=== PATIENT | female | born 1945 | race Caucasian/White ===

== ENCOUNTER → 2018-06-09 08:32 | Outpatient (CLI) | payer MEDICARE, SELFPAY ==
[2018-06-08 09:28] VITALS: BMI 25.8
[2018-06-09 12:53] LABS: Absolute Lymphocyte Count 2.87 X10^3/ul (0.83-4.51); Basophil# 0.01 X10^3/uL; Basophil% 0.2 % (0-1); Eosinophil# 0.13 X10^3/uL; Hematocrit 37.5 % (37-47); Hemoglobin 12.1 g/dl (12.0-15.0); Lymphocyte # 2.87 X10^3/ul (4.0); Lymphocyte % 44.9 % (19-41); Mean Corp Hgb Conc 32.3 g/gl (32-36); Mean Corpuscular Hgb 28.8 pg (27.0-32.0); Mean Corpuscular Volume 89.3 fL (81-99); Monocyte# 0.42 X10^3/uL; Monocyte% 6.6 % (0-10); Neutrophil # 2.95 X10^3/uL (2.7-7.7); Neutrophil % 46.1 % (47-70); Platelet Count 293 K/mm3 (150-450); RBC Distribution Width CV 12.9 % (11.6-14.6); RBC Distribution Width SD 41.1 fl (35.1-43.9); White Blood Count 6.4 K/mm3 (4.4-11.0)
[2018-06-09 12:58] LABS: POSITIVE COUNT NO; POSITIVE DIFFERENTIAL NO; POSITIVE MORPHOLOGY NO
[2018-06-09 13:22] LABS: ALB/GLOB Ratio 1.2 RATIO (0.9-2.4); AST(SGOT) 20 U/L (15-37); Alanine Aminotransfer ALT/SGPT 19 U/L (13-56); Alkaline Phosphatase 65 U/L (45-117); Anion Gap 4 (5-15); BUN 22 mg/dL (7-18); BUN/Creat Ratio 22.4 RATIO (10-20); Calcium,Total 8.7 mg/dL (8.5-10.1); Chloride 108 mmol/L (98-107); Cholesterol 154 mg/dL (200); Creatinine, Serum 0.98 mg/dL (0.55-1.02); EST Glomerular Filtration Rate 59 mL/min (>60); Est Glom Filt Rate - Afr Amer 72 mL/min (>60); Globulin 3.2 g/dL (2.2-4.2); Glucose 90 mg/dL (74-106); High Density Lipoprotein 64 mg/dL; Potassium 4.5 mmol/L (3.5-5.1); Protein, Total 7.2 g/dL (6.4-8.2); Sodium Level 140 mmol/L (136-145); T4 Free Direct 1.04 ng/dL (0.76-1.46); Thyroid Stim Hormone (TSH) 4.84 uIU/mL (0.358-3.74); Triglycerides 123 mg/dL; Very Low Density Lipoprotein 25 mg/dL (5-40)
== END ==
PROVIDERS: PCP Internal Medicine; Visit Provider Internal Medicine
DX: E78.5 Hyperlipidemia, unspecified (principal); E03.9 Hypothyroidism, unspecified
CPT/HCPCS: 36415; 80053; 80061; 84439; 84443; 85025

== ENCOUNTER 2018-10-09 15:33 | Emergency (ER) | payer MEDICARE, MEDICAID, SELFPAY ==
[2018-09-01 13:57] VITALS: BMI 25.8
[2018-10-09 15:34] VITALS: BP 158/71; PULSE 84; RESP 16; TEMP 36.8; O2SAT 97; BMI 29.2
[2018-10-09 16:38] VITALS: BP 117/59; PULSE 73; RESP 17; O2SAT 95
--- NOTE | 2018-10-09 17:50 | EKG12_ITS ---
Test Reason : Blood Pressure : / mmHG Vent. Rate : 060 BPM Atrial Rate : 060 BPM P-R Int : 210 ms QRS Dur : 092 ms QT Int : 438 ms P-R-T Axes : 056 020 038 degrees QTc Int : 438 ms Sinus rhythm with 1st degree A-V block RSR' or QR pattern in V1 suggests right ventricular conduction delay Nonspecific T wave abnormality Abnormal ECG Confirmed by GERALDO MARTIN, MICHELINE ([id number]), writer editor MARY MACDONALD ([id number]) on 10/13/2018 10:30:33 AM Referred By: ADRI Confirmed By:MICHELINE CHOW MD
--- NOTE | 2018-10-09 17:51 | ED.DCSUM_ITS ---
- ER Visit Summary Date of Service: 10/09/18 Chief Complaint: Bilateral lower extremity swelling History of Present Illness: The patient is a 73 F past medical his no pulmonary edema nor any effusions. Tory of borderline diabetes, hypertension, high cholesterol and hypothyroidism. Patient denies any known cardiac history nor any history of CHF nor any kidney disease. She states for the last few months she is had intermittent leg swelling is gotten worse over the last several days and she thinks she is put on weight by water retention. Mild intermittent shortness of breath. No chest pain. No nausea, vomiting or diarrhea. No fever. Normal urination. No dysuria. Physical Examination: Older female no acute distress. Vital signs are stable pulse ox 95% on room air no signs of hypoxia. Initial blood pressure 117/59. HEENT exam unremarkable. Neck nontender no JVD. Lungs clear to auscultation bilaterally. Heart regular rhythm no murmur rate about 70. Abdomen is soft and nontender normal bowel sounds no peritoneal signs. Remedies moves all 4. 1+ pitting edema just below the knees bilaterally. Dorsi plantarflexion intact. Calves are nontender without cords. Neurologically she is awake and alert with no focal motor deficits. Test Results: CBC shows normal white count 8. Hemoglobin of 11. Mildly anemic. Chemistries unremarkable normal creatinine. EKG sinus rhythm otherwise unremarkable. No signs of dysrhythmia or ischemia. Chest x-ray normal. Normal cardiac silhouette. No pulmonary edema. No CHF. No pleural effusions. Emergency Department Course and Treatment: Older female with bilateral lower extremity edema. She will be worked up for possible cardiac, renal or other causes for her pedal edema. Repeat exam unchanged at 2044. Patient is doing well. We went over all of her test results. Treatment Plan: Lasix 20 mg once a day for the next 5 days. Follow-up with her primary care physician. She was instructed to keep her any of fruits and veget zacarias while on the Lasix to help maintain her potassium level. Disposition: Discharge Impression: Acute bilateral lower extremity edema of uncertain etiology This note was generated with [employer] software. It may contain incorrect words, spelling, and punctuation that were not noted in review of the chart prior to signing ED Disposition - Plan for ED Patient: Referrals: Skylar Kaufman MD [Primary Care Provider] -
--- NOTE | 2018-10-09 18:20 | RAD_ITS ---
STUDY: X-RAY CHEST REASON FOR EXAM: Female, 73 years old. Increasing swelling. TECHNIQUE: PA and lateral views of the chest. COMPARISON: None. FINDINGS: The lungs are clear and expanded. There is no demonstrated pleural abnormality. Normal size heart. Normal mediastinum and candelaria. Normal visualized pulmonary arteries. Normal visualized aortic arch and descending thoracic aorta. There are diffuse degenerative changes of the visualized thoracic spine. Normal visualized ribs, clavicles, and shoulders. There are surgical clips within the right upper quadrant of the visualized abdomen consistent prior cholecystectomy. RAD/Chest PA and Lateral IMPRESSION: No acute cardiopulmonary process. Electronically Signed: Chetna Parr MD at 18:45 EDT Tel , Service support ,
[2018-10-09 18:34] LABS: Absolute Lymphocyte Count 3.46 X10^3/uL (0.83-4.51); Absolute Neutrophil Count 4.8 X10^3/uL (2.0-7.7); Basophil# 0.03 X10^3/uL; Basophil% 0.3 % (0-1); Eosinophils% 1.1 % (0-5); Hematocrit 34.1 % (37-47); Hemoglobin 11.3 g/dL (12.0-15.0); Lymphocyte # 3.46 X10^3/ul (4.0); Lymphocyte % 38.7 % (19-41); Mean Corp Hgb Conc 33.1 g/dL (32-36); Mean Corpuscular Volume 87.4 fL (81-99); Mean Platelet Vol. 10.2 fl (6.2-12.0); Monocyte# 0.56 X10^3/uL; Monocyte% 6.3 % (0-10); NRBC Flagged by Analyzer 0 % (0-5); Neutrophil # 4.76 X10^3/uL (2.7-7.7); Neutrophil % 53.3 % (47-70); Platelet Count 275 K/mm3 (150-450); RBC Distribution Width CV 13.3 % (11.6-14.6); RBC Distribution Width SD 42.4 fl (35.1-43.9); White Blood Count 8.9 K/mm3 (4.4-11.0)
[2018-10-09 18:47] LABS: Anion Gap 4 (5-15); BUN 16 mg/dL (7-18); BUN/Creat Ratio 16.8 RATIO (10-20); Calcium,Total 9.1 mg/dL (8.5-10.1); Chloride 107 mmol/L (98-107); Creatinine, Serum 0.95 mg/dL (0.55-1.02); EST Glomerular Filtration Rate 61 mL/min (>60); Est Glom Filt Rate - Afr Amer 74 mL/min (>60); Estimated Creatinine Clearance 50.85 ml/min; Glucose 106 mg/dL (74-106); Sodium Level 141 mmol/L (136-145)
[2018-10-09 19:14] VITALS: BP 155/68; PULSE 64; RESP 12; O2SAT 99
--- NOTE | 2018-10-09 20:49 | ED.DEP ---
ED Disposition - Plan for ED Patient: Disposition: Home or Assisted Living Instructions: ED Peripheral Edema, Bilateral Prescriptions: Furosemide [Lasix] 20 mg PO DAILY #5 tab Prescription Printed Referrals: Skylar Kaufman MD [Primary Care Provider] - 5-7 Days Additional Instructions: Call and follow-up with your doctor to be reevaluated. Your kidney function is normal today. We do not have a specific cause for your leg swelling. I will put you on a medication called Lasix and will make you urinate and hopefully get rid of much of the water. Make sure you are eating plenty of fruits and vegetables to maintain potassium level.
[2018-10-09 20:51] VITALS: BP 119/89; PULSE 59; RESP 17; O2SAT 98
== END 2018-10-09 21:02 | disposition home or self-care (01) ==
PROVIDERS: Emergency Provider Emergency Medicine; Family Provider Internal Medicine; PCP Internal Medicine
DX: R60.0 Localized edema (principal); I10 Essential (primary) hypertension; E03.9 Hypothyroidism, unspecified; E78.00 Pure hypercholesterolemia, unspecified; R73.03 Prediabetes; Z79.899 Other long term (current) drug therapy; Z72.0 Tobacco use
CPT/HCPCS: 71046; 80048; 84484; 85025; 93005; 99285; A4216

== ENCOUNTER → 2018-11-12 09:59 | Outpatient (CLI) | payer MEDICARE, MEDICAID, SELFPAY ==
[2018-11-01 13:59] VITALS: BMI 29.2
== END ==
PROVIDERS: Family Provider Internal Medicine; PCP Internal Medicine; Visit Provider Internal Medicine
DX: E03.9 Hypothyroidism, unspecified (principal)
CPT/HCPCS: 36415; 84443

== ENCOUNTER → 2018-11-15 13:13 | Outpatient (CLI) | payer MEDICARE, MEDICAID, SELFPAY ==
[2018-11-01 13:59] VITALS: BMI 29.2
--- NOTE | 2018-11-15 13:14 | ECHOD_ITS ---
Reason For Study: HTN Procedure This was a 2D Doppler, Color Flow transthoracic echocardiogram. Exam performed in department. Left Ventricle Normal LV size. Left ventricular systolic function is normal. The estimated ejection fraction is 55 %. Stage 1 diastolic dysfunction. No regional wall motion abnormalities noted. Right Ventricle Normal RV size. Normal systolic function. Atria Normal left atrium. Normal right atrium. Mitral Valve Normal mitral valve. Mild (1+) eccentric mitral valve insufficiency. Tricuspid Valve Normal tricuspid valve. Mild tricuspid valve insufficiency. Aortic Valve Normal aortic valve. Pulmonic Valve Normal pulmonic valve. Great Vessels Normal aortic root. The pulmonary artery is normal size. Normal inferior vena cava. Pericardium/Pleural No pericardial effusion. MMode/2D Measurements & Calculations LVIDd: 4.2 cm IVSd: 1.1 cm Ao root diam: 3.0 cm LVIDs: 2.8 cm LVPWd: 0.94 cm RVDd: 3.0 cm FS: 34.9 % LAV(MOD-bp): 59.6 ml EDV(MOD-sp4): 76.7 ml EDV(MOD-sp2): 69.8 ml LAV(MOD-bp) Indexed: 31.2 ml/m2 ESV(MOD-sp4): 32.5 ml EF(MOD-sp2): 50.1 % LAV(MOD-sp2): 64.7 ml EF(MOD-sp4): 57.6 % LAV(MOD-sp4): 53.1 ml SV(MOD-sp4): 44.1 ml SV(MOD-sp2): 35.0 ml LA A4 area: 19.4 cm2 LA dimension(2D): 3.6 cm RA A4 area: 16.0 cm2 Doppler Measurements & Calculations MV E max gunner: 96.6 cm/sec Lat Peak E' Gunner: 6.9 cm/sec Med Peak E' Gunner: 6.2 cm/sec MV A max gunner: 103.1 cm/sec E/E' lat: 14.0 E/E' med: 15.6 MV E/A: 0.94 Ao V2 max: 127.7 cm/sec LV V1 max: 99.0 cm/sec PA V2 max: 84.4 cm/sec Ao max P.5 mmHg LV V1 max P.9 mmHg Interpretation Summary Normal LV size. Left ventricular systolic function is normal. The estimated ejection fraction is 55 %. Stage 1 diastolic dysfunction. Mild (1+) eccentric mitral valve insufficiency. Ordering Physician: Skylar Kaufman Referring Physician: Skylar Kaufman Performed By: Shari Christopher RDCS
== END ==
PROVIDERS: Family Provider Internal Medicine; PCP Internal Medicine; Referring Provider Internal Medicine; Visit Provider Internal Medicine
DX: I10 Essential (primary) hypertension (principal); R60.0 Localized edema
CPT/HCPCS: 93306

== ENCOUNTER → 2019-01-10 08:30 | Outpatient (CLI) | payer MEDICARE, MEDICAID, SELFPAY ==
[2018-12-03 14:38] VITALS: BMI 29.2
[2019-01-10 12:30] LABS: Thyroid Stim Hormone (TSH) 2.51 uIU/mL (0.358-3.74)
== END ==
PROVIDERS: Family Provider Internal Medicine; PCP Internal Medicine; Visit Provider Internal Medicine
DX: E03.9 Hypothyroidism, unspecified (principal)
CPT/HCPCS: 36415; 84443

== ENCOUNTER → 2019-04-05 11:57 | Outpatient (CLI) | payer MEDICARE, MEDICAID, SELFPAY ==
[2019-03-25 13:58] VITALS: BMI 29.2
--- NOTE | 2019-04-05 11:58 | BI_ITS ---
MAMMOGRAPHY - BILATERAL SCREENING REASON FOR EXAM: Female, 74 years old. Routine annual screening examination. PERTINENT HISTORY: Non-contributory. TECHNIQUE: Digital bilateral breast annalee (3D mammographic acquisition) in the CC and MLO projections. 2-D mediolateral oblique (MLO) and craniocaudad (CC) views of both breasts were obtained. CAD: Full Field Digital Mammography with Computer Added Detection was performed. COMPARISON: Comparison is made with prior outside examination dated December 13, 2012. FINDINGS: Breast Composition: The breasts are heterogeneously dense, which may obscure small masses. There are no dominant masses or suspicious calcifications. Stable benign-appearing bilateral axillary lymph nodes. No other significant abnormalities are identified. There has been no significant change since the prior study. BI/SCREEN MAMM (CAD) W/ANNALEE BILAT IMPRESSION: Stable bilateral screening mammogram. Yearly follow-up mammogram recommended. (A) ASSESSMENT CATEGORY: BIRADS Category 2: Benign. A letter regarding these results will be sent to the patient by the facility within 30 days. Approximately 10% of breast cancers are not detected by mammography. A normal mammogram should not delay biopsy of a clinically suspicious abnormality. [id number] Electronically Signed: Eligio Bell, at 13:30 EST , Service support ,
--- NOTE | 2019-04-05 12:26 | BD_ITS ---
STUDY: DUAL ENERGY X-RAY ABSORPTIOMETRY / DXA REASON FOR EXAM: Female, 74 years old. 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 COMPARISON: None. FINDINGS: Lumbar Spine (L1-L4): g/cm2 (1.417) / T-score (2.1) / Z-score (3.8) Findings are suggestive of normal bone density with a low fracture risk. Left Femur Total: g/cm2 (0.988) / T-score (-0.2) / Z-score (1.4) Left Femoral Neck: g/cm2 (0.875) / T-score (-1.2) / Z-score (0.6) Right Femur Total: g/cm2 (0.956) / T-score (0.4) / Z-score (1.2) Right Femoral Neck: g/cm2 (0.835) / T-score (-1.5) / Z-score (0.3) BD/Dexa Bone Density Study IMPRESSION: The patient is considered osteopenic as outlined below according to World Zay Organization (WHO) criteria with a low fracture risk. Reference Information: The T-score is the number of standard deviations above or below the standard which is normal for young adults at their peak bone mineral density. The World Health Organization (WHO) interprets the T-scores as follows: Above -1 Normal bone density Between -1 and -2.5 Osteopenia Equal to / or below -2.5 Osteoporosis As a practical clinical guideline, osteopenia may be graded as follows: Mild -1 through -1.5 Moderate -1.6 through -2.0 Severe -2.1 through -2.4 The Z-score is the number of standard deviations above or below age-matched controls. A Z-score of less than -1.5 would be considered abnormal. References: 1. NIH Osteoporosis and Related Bone Diseases http://www.osteo.org 2. International Society for Clinical Densitometry http://www.iscd.org 3. National Osteoporosis Foundation http://www.nof.org Electronically Signed: Eligio Bell, at 14:55 EST , Service support ,
== END ==
PROVIDERS: PCP Internal Medicine; Referring Provider Internal Medicine; Visit Provider Internal Medicine
DX: Z12.31 Encounter for screening mammogram for malignant neoplasm of breast (principal); Z78.0 Asymptomatic menopausal state
CPT/HCPCS: 77063; 77067; 77080

== ENCOUNTER → 2019-08-17 08:50 | Outpatient (CLI) | payer MEDICARE, MEDICAID, SELFPAY ==
[2019-08-02 10:42] VITALS: BMI 29.2
[2019-08-17 12:30] LABS: Absolute Lymphocyte Count 3.73 X10^3/uL (0.83-4.51); Absolute Neutrophil Count 4.2 X10^3/uL (2.0-7.7); Basophil# 0.05 X10^3/uL; Basophil% 0.6 % (0-1); Eosinophil# 0.08 X10^3/uL; Eosinophils% 0.9 % (0-5); Hematocrit 36.8 % (37-47); Hemoglobin 11.7 g/dL (12.0-15.0); Lymphocyte # 3.73 X10^3/ul (4.0); Lymphocyte % 43.5 % (19-41); Mean Corp Hgb Conc 31.8 g/dL (32-36); Mean Corpuscular Volume 91.1 fL (81-99); Mean Platelet Vol. 9.9 fl (6.2-12.0); Monocyte# 0.46 X10^3/uL; Monocyte% 5.4 % (0-10); NRBC Flagged by Analyzer 0 % (0-5); Neutrophil # 4.22 X10^3/uL (2.7-7.7); Neutrophil % 49.2 % (47-70); Platelet Count 298 K/mm3 (150-450); RBC Distribution Width CV 13.4 % (11.6-14.6); RBC Distribution Width SD 44.6 fl (35.1-43.9); Red Blood Count 4.04 M/mm3 (4.2-5.4); White Blood Count 8.6 K/mm3 (4.4-11.0)
[2019-08-17 13:05] LABS: ALB/GLOB Ratio 1.1 RATIO (0.9-2.4); Albumin, Serum 3.9 g/dL (3.2-5.0); BUN 18 mg/dL (7-18); BUN/Creat Ratio 17.3 RATIO (10-20); Calcium,Total 9.3 mg/dL (8.5-10.1); Creatinine, Serum 1.04 mg/dL (0.55-1.02); EST Glomerular Filtration Rate 55 mL/min (>60); Est Glom Filt Rate - Afr Amer 67 mL/min (>60); Globulin 3.7 g/dL (2.2-4.2); Glucose 106 mg/dL (74-106); Protein, Total 7.6 g/dL (6.4-8.2)
[2019-08-17 13:06] LABS: AST(SGOT) 19 U/L (15-37); Alanine Aminotransfer ALT/SGPT 16 U/L (13-56); Alkaline Phosphatase 75 U/L (45-117); Anion Gap 8 (5-15); Chloride 106 mmol/L (98-107); Cholesterol 162 mg/dL (200); High Density Lipoprotein 60 mg/dL; Potassium 4.2 mmol/L (3.5-5.1); Sodium Level 138 mmol/L (136-145); Thyroid Stim Hormone (TSH) 8.61 uIU/mL (0.358-3.74); Triglycerides 170 mg/dL; Very Low Density Lipoprotein 34 mg/dL (5-40)
== END ==
PROVIDERS: PCP Internal Medicine; Referring Provider Internal Medicine; Visit Provider Internal Medicine
DX: E78.5 Hyperlipidemia, unspecified (principal); E03.9 Hypothyroidism, unspecified
CPT/HCPCS: 36415; 80053; 80061; 84443; 85025

== ENCOUNTER → 2019-09-21 08:15 | Outpatient (CLI) | payer MEDICARE, MEDICAID, SELFPAY ==
[2019-08-22 10:05] VITALS: BMI 29.2
[2019-09-21 13:52] LABS: Anion Gap 9 (5-15); BUN 17 mg/dL (7-18); BUN/Creat Ratio 16.3 RATIO (10-20); Calcium,Total 9.2 mg/dL (8.5-10.1); Chloride 104 mmol/L (98-107); Creatinine, Serum 1.04 mg/dL (0.55-1.02); EST Glomerular Filtration Rate 55 mL/min (>60); Est Glom Filt Rate - Afr Amer 67 mL/min (>60); Glucose 100 mg/dL (74-106); Potassium 4.1 mmol/L (3.5-5.1); Sodium Level 138 mmol/L (136-145); Thyroid Stim Hormone (TSH) 5.29 uIU/mL (0.358-3.74)
== END ==
PROVIDERS: PCP Internal Medicine; Referring Provider Internal Medicine; Visit Provider Internal Medicine
DX: I10 Essential (primary) hypertension (principal)
CPT/HCPCS: 36415; 80048; 84443

== ENCOUNTER → 2019-12-29 08:06 | Outpatient (CLI) | payer MEDICARE, MEDICAID, SELFPAY ==
[2019-12-06 09:37] VITALS: BMI 29.2
[2019-12-29 12:44] LABS: Thyroid Stim Hormone (TSH) 2.07 uIU/mL (0.358-3.74)
== END ==
PROVIDERS: PCP Internal Medicine; Referring Provider Internal Medicine; Visit Provider Internal Medicine
DX: E03.9 Hypothyroidism, unspecified (principal)
CPT/HCPCS: 36415; 84443

== ENCOUNTER → 2020-04-03 11:42 | Outpatient (CLI) | payer MEDICARE, MEDICAID, SELFPAY ==
[2020-01-03 11:15] VITALS: BMI 30.7
[2020-04-03 15:44] LABS: Absolute Lymphocyte Count 4.01 X10^3/uL (0.83-4.51); Absolute Neutrophil Count 5.5 X10^3/uL (2.0-7.7); Basophil# 0.07 X10^3/uL; Basophil% 0.7 % (0-1); Eosinophil# 0.08 X10^3/uL; Eosinophils% 0.8 % (0-5); Hematocrit 42.4 % (37-47); Hemoglobin 13.3 g/dL (12.0-15.0); Lymphocyte # 4.01 X10^3/ul (4.0); Lymphocyte % 38.7 % (19-41); Mean Corp Hgb Conc 31.4 g/dL (32-36); Mean Corpuscular Hgb 27.1 pg (27.0-32.0); Mean Corpuscular Volume 86.5 fL (81-99); Mean Platelet Vol. 9.8 fl (6.2-12.0); Monocyte# 0.61 X10^3/uL; Monocyte% 5.9 % (0-10); NRBC Flagged by Analyzer 0 % (0-5); Neutrophil # 5.52 X10^3/uL (2.7-7.7); Neutrophil % 53.1 % (47-70); Platelet Count 358 K/mm3 (150-450); RBC Distribution Width CV 13.5 % (11.6-14.6); RBC Distribution Width SD 42.5 fl (35.1-43.9); White Blood Count 10.4 K/mm3 (4.4-11.0)
[2020-04-03 16:05] LABS: Anion Gap 9 (5-15); BUN 18 mg/dL (7-18); BUN/Creat Ratio 16.8 RATIO (10-20); Calcium,Total 9.4 mg/dL (8.5-10.1); Chloride 103 mmol/L (98-107); Creatinine, Serum 1.07 mg/dL (0.55-1.02); EST Glomerular Filtration Rate 53 mL/min (>60); Est Glom Filt Rate - Afr Amer 65 mL/min (>60); Glucose 97 mg/dL (74-106); Potassium 4.3 mmol/L (3.5-5.1); Sodium Level 138 mmol/L (136-145)
== END ==
PROVIDERS: PCP Internal Medicine; Referring Provider Internal Medicine; Visit Provider Internal Medicine
DX: I10 Essential (primary) hypertension (principal); E78.5 Hyperlipidemia, unspecified
CPT/HCPCS: 36415; 80048; 85025

== ENCOUNTER → 2020-05-07 12:26 | Outpatient (CLI) | payer MEDICARE, MEDICAID, SELFPAY ==
[2020-01-03 11:15] VITALS: BMI 30.7
--- NOTE | 2020-05-07 12:27 | BI_ITS ---
MAMMOGRAPHY - BILATERAL SCREENING REASON FOR EXAM: Female, 75 years old. Routine annual screening examination. PERTINENT HISTORY: Non-contributory. TECHNIQUE: Digital bilateral breast annalee (3D mammographic acquisition) in the CC and MLO projections. 2-D mediolateral oblique (MLO) and craniocaudad (CC) views of both breasts were obtained. CAD: Full Field Digital Mammography with Computer Added Detection was performed. COMPARISON: Comparison is made with prior study dated 04/05/2019. FINDINGS: Breast Composition: The breasts are heterogeneously dense, which may obscure small masses. There are no dominant masses or suspicious calcifications. Stable small benign-appearing bilateral axillary lymph nodes. No other significant abnormalities are identified. There has been no significant change since the prior study. BI/SCRN MAMM (CAD)W/ANNALEE BILAT IMPRESSION: Stable bilateral screening mammogram. Yearly follow-up mammogram recommended. (A) ASSESSMENT CATEGORY: BIRADS Category 2: Benign. A letter regarding these results will be sent to the patient by the facility within 30 days. Approximately 10% of breast cancers are not detected by mammography. A normal mammogram should not delay biopsy of a clinically suspicious abnormality. [id number] Electronically Signed: Eligio Bell MD at 13:26 EST , Service support ,
== END ==
PROVIDERS: PCP Internal Medicine; Referring Provider Internal Medicine; Visit Provider Internal Medicine
DX: Z12.31 Encounter for screening mammogram for malignant neoplasm of breast (principal)
CPT/HCPCS: 77063; 77067

== ENCOUNTER 2020-05-18 14:58 | Outpatient (RCR) | payer MEDICARE, MEDICAID, SELFPAY ==
[2020-01-03 11:15] VITALS: BMI 30.7
[2020-05-18] MEDS: COVID-19 VACC, MRNA(PFIZER)/PF 30 MCG/0.3 ML SYRINGE IM (13:34)
[2020-06-08] MEDS: COVID-19 VACC, MRNA(PFIZER)/PF 30 MCG/0.3 ML SYRINGE IM (13:27)
== END 2020-08-14 23:59 ==
LOC: IMMUN 14:58
PROVIDERS: PCP Internal Medicine; Visit Provider Family Medicine
DX: Z23 Encounter for immunization (principal)
CPT/HCPCS: 0001A; 0002A; 91300

== ENCOUNTER → 2020-07-31 14:49 | Outpatient (CLI) | payer MEDICARE, MEDICAID, SELFPAY ==
[2020-07-31 14:15] VITALS: BMI 29.2
[2020-07-31 17:11] LABS: ALB/GLOB Ratio 1.1 RATIO (0.9-2.4); AST(SGOT) 24 U/L (15-37); Alanine Aminotransfer ALT/SGPT 19 U/L (13-56); Albumin, Serum 3.5 g/dL (3.2-5.0); Alkaline Phosphatase 75 U/L (45-117); Anion Gap 5 (5-15); BUN 22 mg/dL (7-18); BUN/Creat Ratio 19.6 RATIO (10-20); Calcium,Total 8.7 mg/dL (8.5-10.1); Chloride 105 mmol/L (98-107); Creatinine, Serum 1.12 mg/dL (0.55-1.02); EST Glomerular Filtration Rate 51 mL/min (>60); Est Glom Filt Rate - Afr Amer 61 mL/min (>60); Globulin 3.3 g/dL (2.2-4.2); Glucose 96 mg/dL (74-106); Protein, Total 6.8 g/dL (6.4-8.2); Sodium Level 139 mmol/L (136-145)
== END ==
PROVIDERS: PCP Internal Medicine; Referring Provider Physician Assistant; Visit Provider Physician Assistant
DX: R60.0 Localized edema (principal); I10 Essential (primary) hypertension
CPT/HCPCS: 36415; 80053

== ENCOUNTER 2020-12-26 08:15 | Day surgery (SDC) | payer MEDICARE, MEDICAID, SELFPAY ==
[2020-12-26 08:30] VITALS: BP 163/74; PULSE 92; RESP 18; TEMP 37; O2SAT 100; BMI 30.2
[2020-12-26] MEDS: Lactated Ringers 1,000 ML 100 ML IV (08:35)
--- NOTE | 2020-12-26 09:30 | EGD_PTH ---
PATIENT: JERONIMO GOINS LOC: EN U#:[id number] AGE/SX: 75/F ROOM: RE12/26/[address]: Dr. Alexey Quintana DO : 1945 BED: DIS: 12/26/2020 SPEC #: [id number] RECD: 12/26/20 12:34 STATUS: TARIK LIZ #: [id number] JOYCE: 12/26/20 09:[address]: Alexey Quintana DEPT: SURGICAL PATHOLOGY RECD BY: Bernadette Courtney ENTERED: 12/26/20 13:10 SP TYPE: EGD BIOPSY OT DR: Dr. Skylar Kaufman MD Tissues: A - Esophagus, NOS B - Duodenum, NOS C - Gastric mucous membrane D - Ascending colon E - COLON BIOPSY F - Sigmoid colon biopsy Procedures: Special Stain Group II Surgery Specimen Level IV Alcian Blue/PAS (control) HEADER OPERATION: Colonoscopy, EGD ([facility] [place]) PRE-OP DIAGNOSIS: GERD, cancer screening TISSUE SUBMITTED: A ? Distal esophagus, B ? Duodenum polyp biopsy, C ? Antrum biopsy for H.?pylori and biopsy, D ? Ascending colon polyp biopsy, E ? Splenic flexure polyp biopsy, F ? Sigmoid polyp biopsy MICROSCOPIC DIAGNOSIS A. 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 Focal mild chronic inflammation Negative for dysplasia. See comment. B. Duodenal polyp, biopsy: A fragment of duodenal mucosa with focal cystic changes, consistent with benign mucosal polyp. C. Antrum biopsy: Mild gastritis. See microscopic description and comment. D. Ascending colon polyp, biopsy: Fragments of tubular adenoma. E. Splenic flexure polyp, biopsy: Fragments of tubular adenoma. F. Sigmoid polyp, biopsy: Fragments of hyperplastic polyp. SJ:raj 12/27/2020 COMMENT A. Alcian blue/PAS stain with matched control is used in the evaluation of the specimen. Immunohistochemistry for p53 and ki67 will be performed will be performed and results will be reported separately ([id number]). C. The results of immunohistochemistry for Helicobacter pylori will be reported separately ([id number]). Case has been reviewed in consultation with Dr. Liao who concurs with the above diagnosis. IDC:AM MICROSCOPIC DESCRIPTION Slides are reviewed. C. The specimen shows fragments of gastric mucosa with chronic inflammatory cell infiltrates in the lamina propria consisting of lymphocytes and plasma cells, consistent with mild chronic gastritis. GROSS DESCRIPTION A - Received in fixative is one container labeled with the patient's name and designated distal esophagus biopsy. The specimen consists of two irregular fragments of light tinajero soft tissue that in aggregate measure 0.6 x 0.6 x 0.1 cm. The specimen is totally submitted in one cassette. B - Received in fixative is one container labeled with the patient's name and designated duodenal polyp biopsy. The specimen consists of one irregular fragment of light tinajero soft tissue that measures 0.5 x 0.2 x 0.1 cm. The specimen is totally submitted in one cassette. C - Received in fixative is one container labeled with the patient's name and designated antrum biopsy. The specimen consists of two irregular fragments of light tinajero soft tissue that in aggregate measure 0.5 x 0.5 x 0.1 cm. The specimen is totally submitted in one cassette. D - Received in fixative is one container labeled with the patient's name and designated ascending colon polyp biopsy. The specimen consists of multiple irregular fragments of light tinajero soft tissue that in aggregate measure 1 x 0.5 x 0.1 cm. The specimen is totally submitted in one cassette. E - Received in fixative is one container labeled with the patient's name and designated splenic flexure polyp biopsy. The specimen consists of multiple irregular fragments of light tinajero soft tissue that in aggregate measure 1.5 x 0.6 x 0.1 cm. The specimen is totally submitted in one cassette. F - Received in fixative is one container labeled with the patient's name and designated sigmoid polyp biopsy. The specimen consists of two irregular fragments of light tinajero soft tissue that in aggregate measure 0.6 x 0.6 x 0.1 cm. The specimen is totally submitted in one cassette. / AM:raj 12/26/20 TC:1 CPT: 47418 x6, 95265
--- NOTE | 2020-12-26 09:30 | IMM_PTH ---
PATIENT: JERONIMO GOINS LOC: EN U#:[id number] AGE/SX: 75/F ROOM: RE12/26/[address]: Dr. Alexey Quintana DO : 1945 BED: DIS: 12/26/2020 SPEC #: [id number] RECD: 12/26/20 13:34 STATUS: TARIK REQ #: [id number] JOYCE: 12/26/20 09:[address]: Alexey Quintana DEPT: IMMUNOHISTOCHEMISTRY RECD BY: Betzy Dubon ENTERED: 12/26/20 13:35 SP TYPE: IMMUNO OTHR DR: Dr. Skylar Kaufman MD Tissues: C - Stomach, NOS Procedures: H Pylori (initial) P53 (initial) KI-67 (add) PHYSICIAN & INSTITUTION [place] [id number] SPECIMEN INFORMATION: Tissue Source: A ? Distal esophagus, C ? Antrum biopsy Clinical Info: GERD, cancer screening Specimen Number: [id number] A & C CPT code: 30637 x2, 76910 METHODOLOGY: Deparaffinized sections of prefer/formalin-fixed tissue or PAP/DQ stained slides are incubated with monoclonal/polyclonal antibodies/oligonucleotide probes. Localization is made via biotin free immunoperoxidase method. Appropriate controls are performed and reacted as expected. Results on target cell population are indicated in the following table: RESULTS: ANTIBODY / CLONE RESULT Block A P53 (DO-7) negative Ki-67 (30-9) negative Block C H Pylori (polyclonal) negative These tests were developed and their performance characteristics determined by [facility]. They may not have been cleared or approved by the U.S. Food and Drug Administration. The FDA has determined that such clearance or approval is not necessary. The above immunohistochemical/dualISH markers are ordered and reviewed by the pathologist. INTERPRETATION: A. Distal esophagus, biopsy: Negative for dysplasia. C. Antrum biopsy: Negative for Helicobacter pylori organisms. SJ:raj 12/28/2020
[2020-12-26 10:45] VITALS: BP 117/67; BP 163/74; PULSE 73; RESP 16; TEMP 36.1; O2SAT 100
--- NOTE | 2020-12-26 10:47 | OP.EGD_ITS ---
Patient Name: Suellen Gomez Procedure Date: 12/26/2020 9:57 AM Date of : 1945 Age: 75 Procedure: Upper GI endoscopy Indications: Epigastric abdominal pain Providers: Alexey Quintana DO Referring MD: Alexey Quintana DO Medicines: Propofol per Anesthesia Patient Profile: This is a 75 year old female. Refer to note in patient chart for documentation of history and physical. Patient has symptoms of chronic abdominal cramping and chronic abdominal distention. Complications: No immediate complications. Estimated blood loss: None. Procedure: Pre-Anesthesia Assessment: - Prior to the procedure, a History and Physical was performed, and patient medications and allergies were reviewed. The risks and benefits of the procedure and the sedation options and risks were discussed with the patient. All questions were answered and informed consent was obtained. Patient identification and proposed procedure were verified by the physician in the pre-procedure area. Mental Status Examination: alert and oriented. Airway Examination: normal oropharyngeal airway and neck mobility. Respiratory Examination: clear to auscultation. CV Examination: normal. Prophylactic Antibiotics: The patient does not require prophylactic antibiotics. Prior Anticoagulants: The patient has taken no previous anticoagulant or antiplatelet agents. ASA Grade Assessment: II - A patient with mild systemic disease. After reviewing the risks and benefits, the patient was deemed in satisfactory condition to undergo the procedure. The anesthesia plan was to use moderate sedation / analgesia (conscious sedation). Immediately prior to administration of medications, the patient was re-assessed for adequacy to receive sedatives. The heart rate, respiratory rate, oxygen saturations, blood pressure, adequacy of pulmonary ventilation, and response to care were monitored throughout the procedure. The physical status of the patient was re-assessed after the procedure. After obtaining informed consent, the endoscope was passed under direct vision. Throughout the procedure, the patient's blood pressure, pulse, and oxygen saturations were monitored continuously. The gastroscope was introduced through the mouth, and advanced to the second part of duodenum. The upper GI endoscopy was accomplished without difficulty. The patient tolerated the procedure well. Moderate Sedation: Moderate (conscious) sedation was administered by the endoscopy nurse and supervised by the endoscopist. The patient's oxygen saturation, heart rate, blood pressure and response to care were monitored. Total physician intraservice time was 15 minutes. Scope In: 10:11:48 AM Scope Out: 10:15:51 AM Total Procedure Duration Time 0 hours 4 minutes 3 seconds Findings: LA Grade A (one or more mucosal breaks less than 5 mm, not extending between tops of 2 mucosal folds) esophagitis with no bleeding was found 34 to 35 cm from the incisors. Biopsies were taken with a cold forceps for histology. Verification of patient identification for the specimen was done. Estimated blood loss was minimal. Patchy mildly erythematous mucosa without bleeding was found in the gastric antrum. A single 5 mm sessile polyp was found in the first portion of the duodenum. The polyp was removed with a jumbo cold forceps. Resection and retrieval were complete. Verification of patient identification for the specimen was done. Estimated blood loss was minimal. Impression: - LA Grade A reflux esophagitis. Biopsied. - Erythematous mucosa in the antrum. - High likelihood of duodenitis. Biopsied. Recommendation: - Discharge patient to home. - Resume previous diet. - Continue present medications. - Await pathology results. - Repeat upper endoscopy in 1 year for surveillance. - Return to GI office in 2 weeks. Procedure Code(s): --- Professional --- 01087, Esophagogastroduodenoscopy, flexible, transoral; with biopsy, single or multiple G0500, Moderate sedation services provided by the same physician or other qualified health associate director career services performing a gastrointestinal endoscopic service that sedation supports, requiring the presence of an independent trained observer to assist in the monitoring of the patient's level of consciousness and physiological status; initial 15 minutes of intra-service time; patient age 5 years or older (additional time may be reported with 70519, as appropriate) CPT copyright 2017 [employer]. All rights reserved. The codes documented in this report are preliminary and upon financial systems director review may be revised to meet current compliance requirements. Alexey Quintana DO 12/26/2020 10:47:17 AM This report has been signed electronically. Number of Addenda: 1 Note Initiated On: 12/26/2020 9:57 AM Addendum Number: 1 Addendum Date: 11/07/2021 4:38:06 PM MAC was used instead of moderate sedation for this patient. Alexey Quintana DO 11/07/2021 4:38:13 PM This report has been signed electronically.
--- NOTE | 2020-12-26 10:48 | OP.CCLET_ITS ---
11/07/2021 Skylar Kaufman MD [address] [place] [address] [place] [address] Re : Upper GI endoscopy procedure for Suellen Gomez Dear Dr. Kaufman This procedure was performed on Saturday, December 26, 2020. My impressions and recommendations are as follows: Impressions : - LA Grade A reflux esophagitis. Biopsied. - Erythematous mucosa in the antrum. - High likelihood of duodenitis. Biopsied. Recommendations : - Discharge patient to home. - Resume previous diet. - Continue present medications. - Await pathology results. - Repeat upper endoscopy in 1 year for surveillance. - Return to GI office in 2 weeks. My findings are described in the full procedure note, which is enclosed. If I can be of further assistance, please feel free to contact me at . Sincerely, Alexey Quintana, 12/26/2020 10:47:17 AM This report has been signed electronically.
[2020-12-26 10:50] VITALS: BP 122/55; BP 163/74; PULSE 68; RESP 16; O2SAT 98
--- NOTE | 2020-12-26 10:51 | OP.COLON_ITS ---
Patient Name: Suellen Gomez Procedure Date: 12/26/2020 10:17 AM Date of : 1945 Age: 75 Procedure: Colonoscopy Indications: Screening for colorectal malignant neoplasm Providers: Alexey Quintana DO Referring MD: Alexey Quintana DO Medicines: Propofol per Anesthesia Patient Profile: This is a 75 year old female. Refer to note in patient chart for documentation of history and physical. Patient has symptoms of chronic abdominal cramping and chronic abdominal distention. Last Colonoscopy: 10 years ago. Complications: No immediate complications. Procedure: Pre-Anesthesia Assessment: - Prior to the procedure, a History and Physical was performed, and patient medications and allergies were reviewed. The risks and benefits of the procedure and the sedation options and risks were discussed with the patient. All questions were answered and informed consent was obtained. Patient identification and proposed procedure were verified by the physician in the pre-procedure area. Mental Status Examination: alert and oriented. Airway Examination: normal oropharyngeal airway and neck mobility. Respiratory Examination: clear to auscultation. CV Examination: normal. Prophylactic Antibiotics: The patient does not require prophylactic antibiotics. Prior Anticoagulants: The patient has taken no previous anticoagulant or antiplatelet agents. ASA Grade Assessment: II - A patient with mild systemic disease. After reviewing the risks and benefits, the patient was deemed in satisfactory condition to undergo the procedure. The anesthesia plan was to use moderate sedation / analgesia (conscious sedation). Immediately prior to administration of medications, the patient was re-assessed for adequacy to receive sedatives. The heart rate, respiratory rate, oxygen saturations, blood pressure, adequacy of pulmonary ventilation, and response to care were monitored throughout the procedure. The physical status of the patient was re-assessed after the procedure. After I obtained informed consent, the scope was passed under direct vision. Throughout the procedure, the patient's blood pressure, pulse, and oxygen saturations were monitored continuously. The colonoscope was introduced through the anus and advanced to the cecum, identified by appendiceal orifice and ileocecal valve. The colonoscopy was performed without difficulty. The patient tolerated the procedure well. The quality of the bowel preparation was good. Moderate Sedation: Moderate (conscious) sedation was personally administered by an anesthesia professional. The following parameters were monitored: oxygen saturation, heart rate, blood pressure, and response to care. Total physician intraservice time was 15 minutes. Scope In: 10:19:02 AM Scope Withdrawal Time 0 hours 14 minutes 33 seconds Scope Out: 10:41:05 AM Total Procedure Duration Time 0 hours 22 minutes 3 seconds Findings: The perianal and digital rectal examinations were normal. Four sessile polyps were found in the sigmoid colon, splenic flexure and ascending colon. The polyps were 1 to 2 mm in size. These polyps were removed with a jumbo cold forceps. Resection and retrieval were complete. Verification of patient identification for the specimen was done. Estimated blood loss was minimal. Multiple small and large-mouthed diverticula were found in the sigmoid colon and descending colon. Impression: - Four 1 to 2 mm polyps in the sigmoid colon, at the splenic flexure and in the ascending colon, removed with a jumbo cold forceps. Resected and retrieved. Recommendation: - Repeat colonoscopy in 3 years for surveillance of multiple polyps. - Return to GI office in 2 weeks. - Continue present medications. Procedure Code(s): --- Professional --- 83959, Colonoscopy, flexible; with biopsy, single or multiple CPT copyright 2017 [employer]. All rights reserved. The codes documented in this report are preliminary and upon carpet installer helper review may be revised to meet current compliance requirements. Alexey Quintana DO 12/26/2020 10:51:11 AM This report has been signed electronically. Number of Addenda: 1 Note Initiated On: 12/26/2020 10:17 AM Addendum Number: 1 Addendum Date: 11/07/2021 4:38:24 PM MAC was used instead of moderate sedation for this patient. Alexey Quintana DO 11/07/2021 4:38:29 PM This report has been signed electronically.
--- NOTE | 2020-12-26 10:52 | OP.CCLET_ITS ---
11/07/2021 Skylar Kaufman MD [address] [place] [address] [place] [address] Re : Colonoscopy procedure for Suellen Jason Dear Dr. Kaufman This procedure was performed on Saturday, December 26, 2020. My impressions and recommendations are as follows: Impressions : - Four 1 to 2 mm polyps in the sigmoid colon, at the splenic flexure and in the ascending colon, removed with a jumbo cold forceps. Resected and retrieved. Recommendations : - Repeat colonoscopy in 3 years for surveillance of multiple polyps. - Return to GI office in 2 weeks. - Continue present medications. My findings are described in the full procedure note, which is enclosed. If I can be of further assistance, please feel free to contact me at . Sincerely, Alexey Friend, 12/26/2020 10:51:11 AM This report has been signed electronically.
[2020-12-26 10:55] VITALS: BP 120/52; BP 163/74; PULSE 65; RESP 16; O2SAT 100
[2020-12-26 11:00] VITALS: BP 127/58; BP 163/74; PULSE 65; RESP 16; TEMP 36.1; O2SAT 98
[2020-12-26 11:22] VITALS: BP 163/74
--- NOTE | 2020-12-26 12:00 | PCM.HP.BLA ---
History and Physical Date of Admission: 12/26/20 Chief Complaint: sores in mouth Details: JERONIMO GOINS, is a 75 F who presents to the office today to set up EGD and colonoscopy. She is having difficulty with nausea, heartburn with a productive cough producing white stuff that wakes her at night for about six months. She has tried multiple medicines in the past with no improvement of her symptoms. She also gets anxiety induced diarrhea. Concerns regarding strong family history of colon and others cancers. Last colonoscopy performed 10+ years ago. Hopeful to have EGD and colonoscopy. All other 16 review of systems are negative except as per positive mentioned HPI. ROS Const Constitutional: Positive for weakness; No fatigue or weight change (Gain) Eyes Eyes: No change in vision ENT ENT: No abnormal hearing, difficulty swallowing, mouth lesions, tongue swelling or throat swelling Resp Respiratory: No cough or shortness of breath Cardio Cardiology: No chest pain at rest, chest pain with exertion, shortness of breath or dyspnea on exertion Gastro GI: Positive for diarrhea, heartburn and nausea/dyspepsia; No difficulty swallowing Genitourinary-Female: No difficulty urinating or burning urination Musc Musculoskeletal: Positive for back pain, stiffness and leg pain at night Skin Skin: Positive for dry skin, itchy eyes and rash Neuro Neurology: Positive for weakness; No abnormal hearing Psych Psychiatric: Positive for anxiety and Positive for depression Endo Endocrine: No fatigue or weight change Aller/Imm Allergy/Immunologic: Positive for itchy eyes; No throat swelling or tongue swelling Vince/Lymp Hematologic/Lymphatic: No easy bleeding, easy bruising or enlarged lymph nodes Exam Const General: cooperative and comfortable Nutritional Appearance: average body habitus and well nourished [facility] Head: normal to inspection Ears: hearing grossly normal bilaterally Nose: external nose normal Face and sinus: normal facial exam Mouth: oral mucosae normal Throat: posterior oropharynx normal Eyes General: appearance normal, both eyes and all related structures Neck Neck: normal visual inspection Chest Chest palpation & inspection: normal inspection of the chest and normal palpation of entire chest wall Resp Effort & Inspection: normal respiratory effort Auscultation: Bilateral: Clear to Auscultation Cardio Palpation: normal PMI Rate: regular rate Rhythm: regular rhythm GI Inspection: normal to inspection Auscultation: normal bowel sounds Percussion: normal to percussion Palpation: no hepatosplenomegaly Skin General: no rashes or lesions noted Neuro General: patient alert Extrem General: normal to inspection Psych Affect: normal affect Quality Reporting Tobacco Screening ([facility] 138) Smoking Status: Current every day smoker Assessment and Plan Assessment and Plan (1) GERD (gastroesophageal reflux disease): Status: Chronic Plan - Dr. Blackburn Friend, DO: We will assess her upper GI tract for hiatal hernia, gastritis, duodenitis and atypical gastroesophageal reflux disease. We will also assess her small bowel for celiac disease or medication induced injury to her upper GI tract. (2) Colon cancer screening: Status: Acute Plan - Dr. Blackburn Friend, DO: She will undergo screening colonoscopy. She was explained alternatives, risk, benefits including outstanding bleeding, infection, sepsis, perforation, need for emergency to . She will have an ASA of 2. Plan Details Other Medications: New: bisacodyl 20 mg (4 x 5 mg) PO ONCE 4 tabs 0RF polyethylene glycol 3350 (Miralax) 17 grams PO Q10M 238 grams 0RF This is an updated history from the patient was seen in the office. There are no changes since the patient was seen in office.
== END 2020-12-26 11:36 | disposition home or self-care (01) ==
LOC: EN 08:16 → AC 08:16
PROVIDERS: PCP Internal Medicine; Referring Provider Internal Medicine; Visit Provider Internal Medicine Gastroenterology
PROC: 0DJD8ZZ Inspection of Lower Intestinal Tract, Via Natural or Artificial Opening Endoscopic (ICD-10-PCS; CPT 45378; principal; 2020-12-26 09:25)
DX: Z12.11 Encounter for screening for malignant neoplasm of colon (principal); D12.2 Benign neoplasm of ascending colon; D12.3 Benign neoplasm of transverse colon; K57.30 Diverticulosis of large intestine without perforation or abscess without bleeding; K29.70 Gastritis, unspecified, without bleeding; K21.00 Gastro-esophageal reflux disease with esophagitis, without bleeding; K31.7 Polyp of stomach and duodenum; F17.200 Nicotine dependence, unspecified, uncomplicated; E03.9 Hypothyroidism, unspecified; I10 Essential (primary) hypertension; Z79.899 Other long term (current) drug therapy
CPT/HCPCS: 43239; 45380; 88305; 88313; 88341; 88342; J7120; J2405

== ENCOUNTER → 2021-01-02 13:42 | Outpatient (CLI) | payer MEDICARE, MEDICAID, SELFPAY ==
[2021-01-02 15:32] LABS: ALB/GLOB Ratio 0.9 RATIO (0.9-2.4); AST(SGOT) 15 U/L (15-37); Alanine Aminotransfer ALT/SGPT 14 U/L (13-56); Albumin, Serum 3.5 g/dL (3.2-5.0); Alkaline Phosphatase 69 U/L (45-117); Anion Gap 7 (5-15); BUN 16 mg/dL (7-18); BUN/Creat Ratio 17.3 RATIO (10-20); Calcium,Total 9.1 mg/dL (8.5-10.1); Chloride 105 mmol/L (98-107); Cholesterol 227 mg/dL (200); Creatinine, Serum 0.92 mg/dL (0.55-1.02); EST Glomerular Filtration Rate 63 mL/min (>60); Est Glom Filt Rate - Afr Amer 76 mL/min (>60); Globulin 3.7 g/dL (2.2-4.2); Glucose 122 mg/dL (74-106); High Density Lipoprotein 55 mg/dL; Potassium 4.1 mmol/L (3.5-5.1); Protein, Total 7.2 g/dL (6.4-8.2); Sodium Level 139 mmol/L (136-145); Triglycerides 247 mg/dL; Very Low Density Lipoprotein 49 mg/dL (5-40)
== END ==
PROVIDERS: PCP Internal Medicine; Referring Provider Internal Medicine; Visit Provider Internal Medicine
DX: E78.5 Hyperlipidemia, unspecified (principal); I10 Essential (primary) hypertension
CPT/HCPCS: 36415; 80053; 80061

== ENCOUNTER 2021-04-03 14:29 | Outpatient (CLI) | payer MEDICARE, MEDICAID, SELFPAY ==
[2021-04-04 07:13] LABS: Anion Gap 7 (5-15); BUN 19 mg/dL (7-18); BUN/Creat Ratio 20.7 RATIO (10-20); Calcium,Total 9.2 mg/dL (8.5-10.1); Chloride 103 mmol/L (98-107); Creatinine, Serum 0.92 mg/dL (0.55-1.02); EST Glomerular Filtration Rate 64 mL/min (>60); Est Glom Filt Rate - Afr Amer 77 mL/min (>60); Glucose 101 mg/dL (74-106); Potassium 3.9 mmol/L (3.5-5.1); Sodium Level 135 mmol/L (136-145); Thyroid Stim Hormone (TSH) 8.08 uIU/mL (0.358-3.74)
== END 2021-04-03 23:59 | disposition short-term general hospital (02) ==
LOC: BIMLAB 14:30
PROVIDERS: PCP Internal Medicine; Referring Provider Internal Medicine; Visit Provider Internal Medicine
DX: I10 Essential (primary) hypertension (principal); E03.9 Hypothyroidism, unspecified
CPT/HCPCS: 36415; 80048; 84443

== ENCOUNTER 2021-04-23 11:44 | Outpatient (CLI) | payer MEDICARE, MEDICAID, SELFPAY ==
[2021-04-23 12:24] LABS: Absolute Lymphocyte Count 3.37 X10^3/uL (0.83-4.51); Absolute Neutrophil Count 5.7 X10^3/uL (2.0-7.7); Basophil# 0.06 X10^3/uL; Basophil% 0.6 % (0-1); Eosinophil# 0.08 X10^3/uL; Eosinophils% 0.8 % (0-5); Hematocrit 36.5 % (37-47); Lymphocyte # 3.37 X10^3/ul (0.83-4.51); Lymphocyte % 34.3 % (19-41); Mean Corp Hgb Conc 32.9 g/dL (32-36); Mean Corpuscular Volume 88.2 fL (81-99); Mean Platelet Vol. 9.2 fl (6.2-12.0); Monocyte# 0.51 X10^3/uL; Monocyte% 5.2 % (0-10); NRBC Flagged by Analyzer 0 % (0-5); Neutrophil # 5.73 X10^3/uL (2.7-7.7); Neutrophil % 58.3 % (47-70); Platelet Count 323 K/mm3 (150-450); RBC Distribution Width CV 13.8 % (11.6-14.6); RBC Distribution Width SD 44.7 fl (35.1-43.9); Red Blood Count 4.14 M/mm3 (4.2-5.4); White Blood Count 9.8 K/mm3 (4.4-11.0)
[2021-04-23 13:05] LABS: AST(SGOT) 23 U/L (15-37); Alanine Aminotransfer ALT/SGPT 20 U/L (13-56); Albumin, Serum 3.7 g/dL (3.2-5.0); Alkaline Phosphatase 101 U/L (45-117); Bilirubin, Direct 0.09 mg/dL (0.00-0.30); Globulin 3.8 g/dL (2.2-4.2); Protein, Total 7.5 g/dL (6.4-8.2)
[2021-04-23 13:36] LABS: Hepatitis B Surface Antibody Non-Reactive; Hepatitis B Surface Antigen Non-Reactive (Nonreactive); Hepatitis C Antibody Non-Reactive (Nonreactive)
[2021-04-25 22:07] LABS: QNTFERON TB Mitogen Value > 10.00 IU/mL (.); QNTFERON TB Nil Value 0.04 IU/mL (.); QNTFERON TB1+ Ag Value 0.04 IU/mL (.); QNTFERON TB2+ Ag Value 0.03 IU/mL (.)
[2021-04-25 22:53] LABS: Hepatitis B Core Ab Total Negative (Negative); QNTIFERON TB Positive Criteria Negative (Negative)
== END 2021-04-23 23:59 | disposition home or self-care (01) ==
LOC: LAB 11:46
PROVIDERS: PCP Internal Medicine; Visit Provider Dermatology
DX: L40.0 Psoriasis vulgaris (principal); Z79.899 Other long term (current) drug therapy
CPT/HCPCS: 36415; 80076; 85025; 86480; 86704; 86706; 86803; 87340

== ENCOUNTER 2021-05-20 12:23 | Outpatient (CLI) | payer MEDICARE, MEDICAID, SELFPAY ==
--- NOTE | 2021-05-20 12:26 | BI_ITS ---
MAMMOGRAPHY - BILATERAL SCREENING 3-D TOMOSYNTHESIS REASON FOR EXAM: Female, 76 years old. screening PERTINENT HISTORY: No significant family history. TECHNIQUE: 2-D mammograms and 3-D Tomosynthesis of the breast (s) were performed. CAD was performed. COMPARISON: 05/07/2020 FINDINGS: The breast composition is heterogeneously dense that can obscure small breast masses. Scattered benign calcifications are seen. No dense spiculated masses or suspicious microcalcifications are identified. No architectural distortion is identified. There is no skin thickening or retraction. There has been no significant change since the prior study. BI/SCRN MAMM (CAD)W/ANNALEE BILAT IMPRESSION: No mammographic signs of malignancy. Routine yearly mammograms recommended. ASSESSMENT CATEGORY: BIRADS Category 1: Negative. A letter regarding these results will be sent to the patient by the facility within 30 days. FOLLOW UP RECOMMENDATION: Yearly follow up mammogram recommended. (A) Approximately 10% of breast cancers are not detected by mammography. A normal mammogram should not delay biopsy of a clinically suspicious abnormality. Electronically Signed: Alvarado Ely MD at 14:38 EDT ,
== END 2021-05-20 23:59 | disposition home or self-care (01) ==
LOC: OPBI 12:24
PROVIDERS: PCP Internal Medicine; Visit Provider Physician Assistant
DX: Z12.31 Encounter for screening mammogram for malignant neoplasm of breast (principal)
CPT/HCPCS: 77063; 77067

== ENCOUNTER 2021-06-20 11:14 | Outpatient (CLI) | payer MEDICARE, MEDICAID, SELFPAY ==
[2021-06-20 12:36] LABS: Thyroid Stim Hormone (TSH) 2.83 uIU/mL (0.358-3.74)
== END 2021-06-20 23:59 | disposition home or self-care (01) ==
LOC: BIMLAB 11:15
PROVIDERS: PCP Internal Medicine; Referring Provider Internal Medicine; Visit Provider Internal Medicine
DX: E03.9 Hypothyroidism, unspecified (principal)
CPT/HCPCS: 36415; 84443

== ENCOUNTER → 2021-10-24 | Outpatient (CLI) | payer MEDICARE, MEDICAID, SELFPAY ==
[2021-10-24 11:38] LABS: Absolute Lymphocyte Count 3.72 X10^3/uL (0.83-4.51); Absolute Neutrophil Count 4.2 X10^3/uL (2.0-7.7); Basophil# 0.06 X10^3/uL; Basophil% 0.7 % (0-1); Eosinophil# 0.06 X10^3/uL; Eosinophils% 0.7 % (0-5); Hematocrit 38.7 % (37-47); Hemoglobin 12.9 g/dL (12.0-15.0); Lymphocyte # 3.72 X10^3/ul (0.83-4.51); Lymphocyte % 43.7 % (19-41); Mean Corp Hgb Conc 33.3 g/dL (32-36); Mean Corpuscular Hgb 29.9 pg (27.0-32.0); Mean Corpuscular Volume 89.8 fL (81-99); Mean Platelet Vol. 9.4 fl (6.2-12.0); Monocyte# 0.42 X10^3/uL; Monocyte% 4.9 % (0-10); NRBC Flagged by Analyzer 0 % (0-5); Neutrophil # 4.21 X10^3/uL (2.7-7.7); Neutrophil % 49.4 % (47-70); Platelet Count 293 K/mm3 (150-450); Red Blood Count 4.31 M/mm3 (4.2-5.4); White Blood Count 8.5 K/mm3 (4.4-11.0)
[2021-10-24 12:03] LABS: AST(SGOT) 27 U/L (15-37); Alanine Aminotransfer ALT/SGPT 23 U/L (13-56); Albumin, Serum 3.8 g/dL (3.2-5.0); Alkaline Phosphatase 78 U/L (45-117); Bilirubin, Direct 0.13 mg/dL (0.00-0.30); Globulin 3.5 g/dL (2.2-4.2); Protein, Total 7.3 g/dL (6.4-8.2)
== END | disposition home or self-care (01) ==
LOC: LAB 11:09
PROVIDERS: PCP Internal Medicine; Visit Provider Dermatology
DX: Z79.899 Other long term (current) drug therapy (principal)
CPT/HCPCS: 36415; 80076; 85025

== ENCOUNTER → 2021-12-19 | Outpatient (CLI) | payer MEDICARE, MEDICAID, SELFPAY ==
[2021-12-19 12:19] LABS: Absolute Lymphocyte Count 2.54 X10^3/uL (0.83-4.51); Absolute Neutrophil Count 5.2 X10^3/uL (2.0-7.7); Basophil# 0.05 X10^3/uL; Basophil% 0.6 % (0-1); Eosinophil# 0.07 X10^3/uL; Eosinophils% 0.8 % (0-5); Hematocrit 37.7 % (37-47); Hemoglobin 12.7 g/dL (12.0-15.0); Lymphocyte # 2.54 X10^3/ul (0.83-4.51); Lymphocyte % 30.7 % (19-41); Mean Corp Hgb Conc 33.7 g/dL (32-36); Mean Corpuscular Hgb 29.7 pg (27.0-32.0); Mean Corpuscular Volume 88.1 fL (81-99); Mean Platelet Vol. 9.7 fl (6.2-12.0); Monocyte% 4.8 % (0-10); NRBC Flagged by Analyzer 0 % (0-5); Neutrophil # 5.19 X10^3/uL (2.7-7.7); Neutrophil % 62.7 % (47-70); Platelet Count 357 K/mm3 (150-450); RBC Distribution Width CV 13.5 % (11.6-14.6); RBC Distribution Width SD 43.4 fl (35.1-43.9); Red Blood Count 4.28 M/mm3 (4.2-5.4); White Blood Count 8.3 K/mm3 (4.4-11.0)
[2021-12-19 12:53] LABS: AST(SGOT) 24 U/L (15-37); Alanine Aminotransfer ALT/SGPT 18 U/L (13-56); Albumin, Serum 3.8 g/dL (3.2-5.0); Alkaline Phosphatase 93 U/L (45-117); Anion Gap 9 (5-15); BUN 13 mg/dL (7-18); BUN/Creat Ratio 13.4 RATIO (10-20); Calcium,Total 9.2 mg/dL (8.5-10.1); Chloride 104 mmol/L (98-107); Cholesterol 160 mg/dL (200); Creatinine, Serum 0.97 mg/dL (0.55-1.02); EST Glomerular Filtration Rate 60 mL/min (>60); Est Glom Filt Rate - Afr Amer 72 mL/min (>60); Globulin 3.8 g/dL (2.2-4.2); Glucose 112 mg/dL (74-106); High Density Lipoprotein 60 mg/dL; Protein, Total 7.6 g/dL (6.4-8.2); Sodium Level 136 mmol/L (136-145); Thyroid Stim Hormone (TSH) 9.97 uIU/mL (0.358-3.74); Triglycerides 123 mg/dL; Very Low Density Lipoprotein 25 mg/dL (5-40)
== END | disposition home or self-care (01) ==
LOC: BIMLAB 10:40
PROVIDERS: PCP Internal Medicine; Visit Provider Internal Medicine
DX: I10 Essential (primary) hypertension (principal); E78.2 Mixed hyperlipidemia
CPT/HCPCS: 36415; 80053; 80061; 84443; 85025

== ENCOUNTER → 2022-04-28 | Outpatient (CLI) | payer MEDICARE, MEDICAID, SELFPAY ==
[2022-04-28 12:53] LABS: Thyroid Stim Hormone (TSH) 3.14 uIU/mL (0.358-3.74)
== END | disposition home or self-care (01) ==
LOC: BIMLAB 09:03
PROVIDERS: PCP Internal Medicine; Referring Provider Internal Medicine; Visit Provider Internal Medicine
DX: E03.9 Hypothyroidism, unspecified (principal)
CPT/HCPCS: 36415; 84443

== ENCOUNTER → 2022-10-15 | Outpatient (CLI) | payer MEDICARE, SELFPAY ==
--- NOTE | 2022-10-15 11:48 | BI_ITS ---
MAMMOGRAPHY - BILATERAL SCREENING REASON FOR EXAM: Female, 77 years old. Routine annual screening examination. PERTINENT HISTORY: Non-contributory. TECHNIQUE: Digital bilateral breast annalee (3D mammographic acquisition) in the CC and MLO projections. 2-D mediolateral oblique (MLO) and craniocaudad (CC) views of both breasts were obtained. CAD: Full Field Digital Mammography with Computer Added Detection was performed. COMPARISON: Comparison is made with prior study dated May 20, 2021 and May 07, 2020. FINDINGS: Breast Composition: The breasts are extremely dense, which lowers the sensitivity of mammography. There are no dominant masses or suspicious calcifications. Stable fat-containing bilateral axillary lymph nodes. No other significant abnormalities are identified. There has been no significant change since the prior study. BI/SCRN MAMM (CAD)W/ANNALEE BILAT IMPRESSION: Stable bilateral screening mammogram. Yearly follow-up mammogram recommended. (A) ASSESSMENT CATEGORY: BIRADS Category 2: Benign. A letter regarding these results will be sent to the patient by the facility within 30 days. Approximately 10% of breast cancers are not detected by mammography. A normal mammogram should not delay biopsy of a clinically suspicious abnormality. [id number] Electronically Signed: Eligio Bell MD at 13:04 EDT ,
== END | disposition home or self-care (01) ==
LOC: OPBI 11:47
PROVIDERS: PCP Internal Medicine; Referring Provider Internal Medicine; Visit Provider Internal Medicine
DX: Z12.31 Encounter for screening mammogram for malignant neoplasm of breast (principal)
CPT/HCPCS: 77063; 77067

== ENCOUNTER → 2022-12-12 | Outpatient (CLI) | payer MEDICARE, SELFPAY ==
[2022-12-12 12:15] LABS: Absolute Lymphocyte Count 3.17 X10^3/uL (0.83-4.51); Absolute Neutrophil Count 4.1 X10^3/uL (2.0-7.7); Basophil# 0.05 X10^3/uL; Basophil% 0.6 % (0-1); Eosinophil# 0.07 X10^3/uL; Eosinophils% 0.9 % (0-5); Hematocrit 41.1 % (37-47); Hemoglobin 13.1 g/dL (12.0-15.0); Lymphocyte # 3.17 X10^3/ul (0.83-4.51); Mean Corp Hgb Conc 31.9 g/dL (32-36); Mean Corpuscular Hgb 28.9 pg (27.0-32.0); Mean Corpuscular Volume 90.7 fL (81-99); Mean Platelet Vol. 9.8 fl (6.2-12.0); Monocyte% 6.3 % (0-10); NRBC Flagged by Analyzer 0 % (0-5); Neutrophil # 4.09 X10^3/uL (2.7-7.7); Neutrophil % 51.7 % (47-70); Platelet Count 322 K/mm3 (150-450); RBC Distribution Width CV 13.5 % (11.6-14.6); RBC Distribution Width SD 45.1 fl (35.1-43.9); Red Blood Count 4.53 M/mm3 (4.2-5.4); White Blood Count 7.9 K/mm3 (4.4-11.0)
[2022-12-12 13:22] LABS: ALB/GLOB Ratio 0.9 RATIO (0.9-2.4); AST(SGOT) 34 U/L (15-37); Alanine Aminotransfer ALT/SGPT 26 U/L (13-56); Albumin, Serum 3.7 g/dL (3.2-5.0); Alkaline Phosphatase 107 U/L (45-117); Anion Gap 6 (5-15); BUN 15 mg/dL (7-18); BUN/Creat Ratio 15.3 RATIO (10-20); Calcium,Total 9.2 mg/dL (8.5-10.1); Chloride 107 mmol/L (98-107); Cholesterol 170 mg/dL (200); Creatinine, Serum 0.98 mg/dL (0.55-1.02); EST Glomerular Filtration Rate 59 mL/min (>60); Est Glom Filt Rate - Afr Amer 71 mL/min (>60); Globulin 3.9 g/dL (2.2-4.2); Glucose 130 mg/dL (74-106); High Density Lipoprotein 65 mg/dL; Potassium 4.4 mmol/L (3.5-5.1); Protein, Total 7.6 g/dL (6.4-8.2); Sodium Level 139 mmol/L (136-145); Thyroid Stim Hormone (TSH) 5.16 uIU/mL (0.358-3.74); Triglycerides 170 mg/dL; Very Low Density Lipoprotein 34 mg/dL (5-40)
== END | disposition home or self-care (01) ==
LOC: BIMLAB 09:32
PROVIDERS: PCP Internal Medicine; Referring Provider Internal Medicine; Visit Provider Internal Medicine
DX: E03.9 Hypothyroidism, unspecified (principal); E78.5 Hyperlipidemia, unspecified
CPT/HCPCS: 36415; 80053; 80061; 84443; 85025

== ENCOUNTER → 2023-01-21 | Outpatient (CLI) | payer MEDICARE, SELFPAY ==
[2023-01-21 13:01] LABS: Thyroid Stim Hormone (TSH) 6.32 uIU/mL (0.358-3.74)
== END | disposition home or self-care (01) ==
LOC: BIMLAB 09:51
PROVIDERS: PCP Internal Medicine; Referring Provider Internal Medicine; Visit Provider Internal Medicine
DX: E07.9 Disorder of thyroid, unspecified (principal)
CPT/HCPCS: 36415; 84443

== ENCOUNTER → 2023-05-19 | Outpatient (CLI) | payer MEDICARE, MEDICAID, SELFPAY ==
[2023-05-19 11:51] LABS: Thyroid Stim Hormone (TSH) 4.34 uIU/mL (0.358-3.74)
--- OUTSIDE RECORDS SUMMARY | 2023-05-19 23:51 | XMS RPT_ITS | CCD ---
Author Name Unknown Address [address] [place] [address] Organization [facility] Care Team Providers Care Scuba Instructor Name Role Phone Skylar Davalos MD Primary Care Provider [phone] CLARY ARSHAD Referring Unavailable SKYLAR DAVALOS Primary Care Unavailable SKYLAR DAVALOS Primary Care Unavailable SKYLAR DAVALOS Primary Care Unavailable SKYLAR DAVALOS Primary Care Unavailable Medications Current Medications Medication Drug Class(es) Dates Sig (Normalized) Sig (Original) amoxicillin 875 mg oral tablet (2 sources) Penicillin-class Antibacterial Start: 02-10-2022 End: 02-17-2022 take 1 tablet by mouth twice daily amoxicillin (AMOXIL) 875 mg tablet Take 1 tablet by mouth twice daily for 7 days. 14 tablet 0 02/10/2022 02/17/2022 Active Completed/Discontinued Medications Medication Drug Class(es) Dates Sig (Normalized) Sig (Original) amitriptyline hydrochloride 50 mg oral tablet (3 sources) Tricyclic Antidepressant take 1 tablet by mouth once daily at bedtime amitriptyline 50 mg tablet Take 50 mg by mouth daily at bedtime. 0 Active Problems Active Problems Problem Classification Problem Date Documented Da te Episodic/Chronic Disorders of teeth and jaw (2 sources) Infection of tooth; Translations: [Periapical abscess without sinus] Episodic Other lower respiratory disease (1 source) Cough; Translations: [Acute cough] Episodic Other upper respiratory disease (1 source) Chronic rhinitis; Translations: [Unspecified sinusitis (chronic)] Chronic Unclassified (1 source) Acute cough; Translations: [Acute cough] Onset: 07-12-2022 Past or Other Problems Problem Classification Problem Date Documented Da te Episodic/Chronic Allergic reactions (9 sources) Contact dermatitis; Translations: [Unspecified contact dermatitis due to other agents] Onset: 08-03-2008 08-03-2008 Episodic Diseases of mouth; excluding dental (9 sources) Glossitis; Translations: [Glossitis] Onset: 01-08-2010 01-08-2010 Episodic Genitourinary symptoms and ill-defined conditions (3 sources) Dysuria; Translations: [Dysuria] Onset: 09-29-2012 09-29-2012 Episodic Mycoses (3 sources) Candidal vulvovaginitis; Translations: [Candidiasis of vulva and vagina] Onset: 09-29-2012 09-29-2012 Episodic Other inflammatory condition of skin (3 sources) Pruritus of skin; Translations: [Pruritus, unspecified] Onset: 08-03-2008 08-03-2008 Episodic Other injuries and conditions due to external causes (3 sources) Superficial injury; Translations: [Unspecified multiple injuries, initial encounter] Onset: 08-03-2008 08-03-2008 Episodic Other skin disorders (3 sources) Disorder of sebaceous gland; Translations: [Other specified follicular disorders] Onset: 08-03-2008 08-03-2008 Episodic Results Test Name Value Interpretation Reference Range Facil ity Vital Signs Date Time Vital Sign Value Performing Clinician Faci lity 07-12-2022 10:58-0400 Body temperature 97.2 [degF] Clary Arshad APRN.CNP Work Phone: [facility] 07-12-2022 10:58-0400 Body weight 86.18 kg Clary Arshad APRN.CNP Work Phone: [facility] 07-12-2022 10:58-0400 Diastolic blood pressure 98 mm[Hg] Clary Arshad APRN.CNP Work Phone: [facility] 07-12-2022 10:58-0400 Heart rate 98 /min Clary Arshad APRN.CNP Work Phone: [facility] 07-12-2022 10:58-0400 Respiratory rate 16 /min Clary Arshad APRN.CNP Work Phone: [facility] 07-12-2022 10:58-0400 SaO2% (BldA) [Mass fraction] 97 % Clary Arshad APRN.CNP Work Phone: [facility] 07-12-2022 10:58-0400 Systolic blood pressure 172 mm[Hg] Clary Arshad STORE STANDARDS ASSOCIATE.MODELING INSTRUCTOR Work Phone: [facility] 02-10-2022 13:17-0500 Body temperature 98.01 [degF] Marcial Cooperbrock STORE STANDARDS ASSOCIATE.MODELING INSTRUCTOR Work Phone: [facility] 02-10-2022 13:17-0500 Body weight 84.37 kg [facility] STORE STANDARDS ASSOCIATE.MODELING INSTRUCTOR Work Phone: [facility] 02-10-2022 13:17-0500 Diastolic blood pressure 92 mm[Hg] [facility] STORE STANDARDS ASSOCIATE.MODELING INSTRUCTOR Work Phone: [facility] 02-10-2022 13:17-0500 Heart rate 91 /min Marcial Gurpreetedmundobrock STORE STANDARDS ASSOCIATE.MODELING INSTRUCTOR Work Phone: [facility] 02-10-2022 13:17-0500 Respiratory rate 20 /min [facility] STORE STANDARDS ASSOCIATE.MODELING INSTRUCTOR Work Phone: [facility] 02-10-2022 13:17-0500 SaO2% (BldA) [Mass fraction] 97 % Marcial Cooperbrock STORE STANDARDS ASSOCIATE.MODELING INSTRUCTOR Work Phone: [facility] 02-10-2022 13:17-0500 Systolic blood pressure 164 mm[Hg] Marcial Cooperbrock STORE STANDARDS ASSOCIATE.MODELING INSTRUCTOR Work Phone: [facility] 09-26-2021 11:03-0400 Body temperature 98.4 [degF] Bibi Athy PA-C Work Phone: [facility] 09-26-2021 11:03-0400 Body weight 87.82 kg Bibi Athy PA-C Work Phone: [facility] 09-26-2021 11:03-0400 Diastolic blood pressure 68 mm[Hg] Bibi Athy PA-C Work Phone: [facility] 09-26-2021 11:03-0400 Heart rate 98 /min Bibi Athy PA-C Work Phone: [facility] 09-26-2021 11:03-0400 Respiratory rate 18 /min Bibi Buckner PA-C Work Phone: [facility] 09-26-2021 11:03-0400 SaO2% (BldA) [Mass fraction] 97 % Bibi Buckner PA-C Work Phone: [facility] 09-26-2021 11:03-0400 Systolic blood pressure 132 mm[Hg] Bibi Buckner PA-C Work Phone: [facility] Encounters Encounter Date Encounter Type Care Provider Facility Start: 07-12-2022 End: 07-12-2022 ambulatory SKYLAR DAVALOS Facility:[facility] Start: 07-12-2022 End: 07-12-2022 Patient encounter procedure Clary Arshad APRN.CNP Work Phone: [facility] Procedures Date Procedure Procedure Detail Performing Clinician Start: 12-13-2012 Mammography Bibi Buckner PA-C Work Phone: Plan of Treatment Date Care Activity Detail Author Start: 03-09-2022 ADVANCE DIRECTIVE DISCUSSION ADVANCE DIRECTIVE DISCUSSION [facility] Start: 03-09-2022 DEPRESSION ASSESSMENT DEPRESSION ASS ESSMENT [facility] Start: 11-07-2021 Influenza vaccination INFLUENZA (#1) [facility] Start: 03-09-2021 ADVANCE DIRECTIVE DISCUSSION ADVANCE DIRECTIVE DISCUSSION [facility] Start: 03-09-2021 DEPRESSION ASSESSMENT DEPRESSION ASS ESSMENT [facility] Start: 11-08-2020 COVID-19 VACCINE (3 - Booster for Pfizer series) COVID-19 VACCINE (3 - Booster for Pfizer series) [facility] Start: 08-03-2020 COVID-19 VACCINE (3 - Booster for Pfizer series) COVID-19 VACCINE (3 - Booster for Pfizer series) [facility] Start: 12-13-2013 Mammography MAMMOGRAM [facility] Start: 1997 SHINGRIX VACCINE (1 of 2) SHINGRIX V ACCINE (1 of 2) [facility] Start: 1992 COLOGUARD (FIT-DNA) COLOGUARD (FIT-D NA) [facility] Start: 1992 Colonoscopy COLONOSCOPY [facility] Start: 1992 COLORECTAL CANCER SCREENING COLORECTAL CANCER SCREENING [facility] Start: [address] COLONOGRAPHY [facility] Start: 1992 DIABETES SCREEN DIABETES SCREEN [facility] Start: 1992 FECAL OCCULT BLOOD FECAL OCCULT BLOO D [facility] Start: 1992 LIPID SCREEN LIPID SCREEN [facility] Start: 1992 SIGMOIDOSCOPY SIGMOIDOSCOPY Clevelzuly martinez [facility] Start: 1966 Urine microalbumin profile DTAP,TDAP ,TD (1 - Tdap) [facility] Start: 1965 HEPATITIS C SCREENING HEPATITIS C SC REENING [facility] Start: 1959 Adult depression scr eening assessment DEPRESSION SCREENING [facility] Start: 1953 PNEUMOCOCCAL: 65+ (1 - PCV) PNEUMOCOCCAL: 65+ (1 - PCV) [facility] Payers Date Payer Category [place] [id number] 2017-Present [phone] [address] [place] [address] Medicaid [id number] 2017 [place] [id number] 2017-Present [phone] [address] [place] [address] Medicaid [id number] 2017 Medicaid [id number] 2004 Medicare MEDICARE MEDICAR E A AND B [id number] 2004-Present [phone] [place] [address] Medicare [id number] 2004 Medicare MEDICARE MEDICAR E A AND B [id number] 2004-Present [phone] [place] [address] Medicare [id number] 2004 Medicare [id number] Social History Date Type Detail Facility Start: 02-10-2022 Tobacco smoking stat us NHIS Smokes tobacco daily [facility] History of tobacco use Cigarette Smoker [facility] Start: 09-26-2021 End: 07-12-2022 Alcohol intake Current non-drinker of alcohol (finding) [facility] Start: 07-05-2014 End: 02-10-2022 Tobacco Comment smokes about 2 ciggs every day [facility] Start: 1945 Sex Assigned At Not on file C [facility] Start: 09-16-2021 End: 02-10-2022 Exposure to SARS-CoV-2 (event) Not sure [facility] Start: 02-10-2022 Tobacco use and exposure Smoke less tobacco non-user [facility] Clinical Notes 02-16-2014 to 07-12-2022 Clary Arshad APRN.MODELING INSTRUCTOR - 07/12/2022 10:59 AM EDTPatient Marcy Dewey APRN.MODELING INSTRUCTOR - 02/10/2022 1:34 PM Soila Buckner PA-C - 09/26/2021 12:27 PM EDT Note Date & Type Note Facility 07-12-2022 Note HNO ID: [id number] Author: RT Roxana(Tigist) Service: ? Author Type: Party Chief Type: Progress Notes Filed: 07/12/2022 11:18 AM Note Text: Radiology Service Progress Note PATIENT NAME: Jeronimo Gomez DATE OF SERVICE: July 12, 2022 TIME: 11:06 AM PATIENT IDENTITY VERIFICATION COMPLETED USING TWO (2) IDENTIFIERS: Name and Date of confirmed by patient verbally. FALL SCREENING: Has the patient had 2 falls in the last year or 1 fall with injury or currently using an Ambulatory Assistive Device (Walker, Cane, Wheelchair, Crutches, etc.)? No PATIENT GENDER DATA: Female. status: : No status: NO. PATIENT RELEVANT IMPLANT DATA REVIEWED: Yes RADIOLOGY DEPARTMENT: General X-ray: Exam(s) Completed: Chest X-Ray PERIPHERAL IV DATA: Not applicable SIGNED BY: RT Roxana(R) July 12, 2022 11:06 AM [facility] 07-12-2022 Note HNO ID: [id number] Author: Clary Arshad APRN.MODELING INSTRUCTOR Service: ? Author Type: Nurse Practitioner Type: Progress Notes Filed: 07/12/2022 11:54 AM Note Text: CC: Patient presents with: Head Congestion: chest congestion and cough x 1 week HPI: Jeronimo Gomez is a 77 year old female who presents to the office with complaint of chest congestion, head congestion, and cough, productive for a week. Symptoms are worsening Associated symptoms includes wheezing. Denies fever, nausea, vomiting , and diarrhea. Treatments tried include nothing so far. with no relief of symptoms. Sick contacts: unknown. History of asthma, frequent episodes of bronchitis, chronic bronchitis, bronchiectasis or COPD: No Smoker: No Seasonal/environmental allergies: No The ROS is otherwise negative. The patient's pmh, medications, allergies, and past visits are reviewed. PHYSICAL EXAM: BP 172/98 Pulse 98 Temp 36.2 ?C (97.2 ?F) Resp 16 Wt 86.2 kg (190 lb) SpO2 97% BMI 30.67 kg/m? General appearance: alert, cooperative, pleasant, in no acute distress Head: Normocephalic Eyes: EOM's intact, conjunctiva pink and moist, no icterus, sclera white, non-injected Ears: Right ear: External ear/canal- Normal, TM - clear with good landmarks. Left ear: External ear/canal- Normal, TM - clear with good landmarks Oropharynx:moist without lesions, No erythema, exudates or tonsillar hypertrophy. Heart: Negative. RRR without obvious murmur, gallop, or rubs. No ectopy. Lungs: mild wheezing diffusely PAST MEDICAL HISTORY Diagnosis Date GERD (gastroesophageal reflux disease) Hyperlipidemia Hypertension Hypothyroidism PAST SURGICAL HISTORY Procedure Laterality Date DELIVERY ONLY , low cervical ESOPHAGOGASTRODUODENOSCOPY TRANSORAL DIAGNOSTIC 02/16/14 GALLBLADDER /EJECTION FRACTION TONSILLECTOMY PRIMARY/SECONDARY Tonsillectomy ALLERGIES Patient has no known allergies. MEDICATIONS traZODone (DESYREL) 150 mg tablet clobetasol (TEMOVATE) 0.05 % ointment Apply to affected area BID x 8 weeks then use 1-2x weekly for maintenance amitriptyline 50 mg tablet Take 50 mg by mouth daily at bedtime. simvastatin(ZOCOR 20 MG TAB) Take one(1) tablet daily at bedtime. CITALOPRAM 10 MG TAB Take one(1) tablet two(2) times daily. LISINOPRIL 10 MG TAB Take one(1) tablet daily. levothyroxine (SYNTHROID) 100 mcg ORAL Tab Take one(1) tablet daily. fluticasone (FLONASE) 50 mcg/actuation nasal spray Use 2 Sprays in each nostril once daily. Rinse mouth after use. (Patient not taking: Reported on 12/06/2019 ) clobetasol (TEMOVATE) 0.05 % ointment Apply 1 application to affected area twice daily. TO AFFECTED AREA. (Patient not taking: Reported on 09/26/2021 ) FAMILY HISTORY Problem Relation Age of Onset Heart Father Stroke Mother Thyroid Mother Hypertension Mother Diabetes Mother Thyroid Sister Thyroid Sister Social History Tobacco Use Smoking status: Every Day Types: Cigarettes Smokeless tobacco: Never Tobacco comments: smokes about 2 ciggs every day Substance Use Topics Alcohol use: No Drug use: No ASSESSMENT/PLAN: 1. Acute cough - ICD9: 786.2, ICD10: R05.1 (primary diagnosis) - XR CHEST 2V FRONTAL/LAT * * * * Physician Interpretation * * * * EXAMINATION: CHEST RADIOGRAPH (2 VIEW FRONTAL AND LATERAL) CLINICAL HISTORY: Acute cough MQ: XC2_6 EXAM DATE/TIME: 07/12/2022 11:17 AM COMPARISON: No relevant prior studies available. RESULT: Lines, tubes, and devices: None. Lungs and pleura: No consolidation. No lung mass. No pleural effusion. No pneumothorax. Cardiomediastinal silhouette: Normal cardiomediastinal silhouette. Bones and soft tissues: Degenerative changes are present within the thoracic spine. IMPRESSION IMPRESSION: No acute radiographic abnormality. Supervisor Education: HERLINDA Transcribe Date/Time: Jul 12 2022 11:40A Dictated by : JEANCARLOS ROGERS MD - DOXYCYCLINE MONOHYDRATE 100 MG TABLET - PREDNISONE 20 MG TABLET 2. Rhinosinusitis - ICD9: 473.9, ICD10: J31.0, J32.9 - DOXYCYCLINE MONOHYDRATE 100 MG TABLET - PREDNISONE 20 MG TABLET Prescription instructions reviewed with patient as applicable. Potential red flag symptoms discussed with the patient. Reviewed appropriate action plan to take if red flag symptoms occur. Patient agreeable to treatment plan. Clary Arshad APRN.[facility] 07-12-2022 History of Present illness Narrative CC: Patient presents with: Head Congestion: chest congestion and cough x 1 week HPI: Jeronimo Gomez is a 77 year old female who presents to the office with complaint of chest congestion, head congestion, and cough, productive for a week. Symptoms are worsening Associated symptoms includes wheezing. Denies fever, nausea, vomiting , and diarrhea. Treatments tried include nothing so far. with no relief of symptoms. Sick contacts: unknown. History of asthma, frequent episodes of bronchitis, chronic bronchitis, bronchiectasis or COPD: No Smoker: No Seasonal/environmental allergies: No The ROS is otherwise negative. The patient's pmh, medications, allergies, and past visits are reviewed. PHYSICAL EXAM: BP 172/98 Pulse 98 Temp 36.2 C (97.2 F) Resp 16 Wt 86.2 kg (190 lb) SpO2 97% BMI 30.67 kg/m General appearance: alert, cooperative, pleasant, in no acute distress Head: Normocephalic Eyes: EOM's intact, conjunctiva pink and moist, no icterus, sclera white, non-injected Ears: Right ear: External ear/canal- Normal, TM - clear with good landmarks. Left ear: External ear/canal- Normal, TM - clear with good landmarks Oropharynx:moist without lesions, No erythema, exudates or tonsillar hypertrophy. Heart: Negative. RRR without obvious murmur, gallop, or rubs. No ectopy. Lungs: mild wheezing diffusely PAST MEDICAL HISTORY Diagnosis Date GERD (gastroesophageal reflux disease) Hyperlipidemia Hypertension Hypothyroidism PAST SURGICAL HISTORY Procedure Laterality Date DELIVERY ONLY , low cervical ESOPHAGOGASTRODUODENOSCOPY TRANSORAL DIAGNOSTIC 02/16/14 GALLBLADDER /EJECTION FRACTION TONSILLECTOMY PRIMARY/SECONDARY <AGE 14 Tonsillectomy ALLERGIES Patient has no known allergies. MEDICATIONS traZODone (DESYREL) 150 mg tablet clobetasol (TEMOVATE) 0.05 % ointment Apply to affected area BID x 8 weeks then use 1-2x weekly for maintenance amitriptyline 50 mg tablet Take 50 mg by mouth daily at bedtime. simvastatin(ZOCOR 20 MG TAB) Take one(1) tablet daily at bedtime. CITALOPRAM 10 MG TAB Take one(1) tablet two(2) times daily. LISINOPRIL 10 MG TAB Take one(1) tablet daily. levothyroxine (SYNTHROID) 100 mcg ORAL Tab Take one(1) tablet daily. fluticasone (FLONASE) 50 mcg/actuation nasal spray Use 2 Sprays in each nostril once daily. Rinse mouth after use. (Patient not taking: Reported on 12/06/2019 ) clobetasol (TEMOVATE) 0.05 % ointment Apply 1 application to affected area twice daily. TO AFFECTED AREA. (Patient not taking: Reported on 09/26/2021 ) FAMILY HISTORY Problem Relation Age of Onset Heart Father Stroke Mother Thyroid Mother Hypertension Mother Diabetes Mother Thyroid Sister Thyroid Sister Social History Tobacco Use Smoking status: Every Day Types: Cigarettes Smokeless tobacco: Never Tobacco comments: smokes about 2 ciggs every day Substance Use Topics Alcohol use: No Drug use: No ASSESSMENT/PLAN: 1. Acute cough - ICD9: 786.2, ICD10: R05.1 (primary diagnosis) - XR CHEST 2V FRONTAL/LAT * * * * Physician Interpretation * * * * EXAMINATION: CHEST RADIOGRAPH (2 VIEW FRONTAL & LATERAL) CLINICAL HISTORY: Acute cough MQ: XC2_6 EXAM DATE/TIME: 07/12/2022 11:17 AM COMPARISON: No relevant prior studies available. RESULT: Lines, tubes, and devices: None. Lungs and pleura: No consolidation. No lung mass. No pleural effusion. No pneumothorax. Cardiomediastinal silhouette: Normal cardiomediastinal silhouette. Bones and soft tissues: Degenerative changes are present within the thoracic spine. IMPRESSION IMPRESSION: No acute radiographic abnormality. Supervisor Education: HERLINDA Transcribe Date/Time: Jul 12 2022 11:40A Dictated by : JEANCARLOS ROGERS MD - DOXYCYCLINE MONOHYDRATE 100 MG TABLET - PREDNISONE 20 MG TABLET 2. Rhinosinusitis - ICD9: 473.9, ICD10: J31.0, J32.9 - DOXYCYCLINE MONOHYDRATE 100 MG TABLET - PREDNISONE 20 MG TABLET Prescription instructions reviewed with patient as applicable. Potential red flag symptoms discussed with the patient. Reviewed appropriate action plan to take if red flag symptoms occur. Patient agreeable to treatment plan. Clary Arshad APRN.MODELING INSTRUCTOR documented in this encounter [facility] 02-10-2022 Note HNO ID: [id number] Author: Marcial Dewey APRN.CNP Service: ? Author Type: Nurse Practitioner Type: Progress Notes Filed: 02/10/2022 1:50 PM Note Text: Subjective HPI Nontoxic-appearing female presents urgent care chief complaint low left lower dental infection. Duration of symptoms on and off for the last few months. Associated symptoms dental pain and left ear pain. Was seen here in September of this year. Diagnosed with dental infection. Was placed on amoxicillin this did help for short period time. Presents today for reevaluation. States she is establishing with a dentist tomorrow. Denies any trauma. Denies any fever body aches chills difficulty swallowing difficulty handling secretions decreased range of motion neck pain of floor of mouth. Past medical history prescription medication use allergies reviewed. .Patient presents with: Dental Problem: L lower tooth infection, L ear pain x months PAST MEDICAL HISTORY Diagnosis Date GERD (gastroesophageal reflux disease) Hyperlipidemia Hypertension Hypothyroidism PAST SURGICAL HISTORY Procedure Laterality Date DELIVERY ONLY , low cervical ESOPHAGOGASTRODUODENOSCOPY TRANSORAL DIAGNOSTIC 02/16/14 GALLBLADDER /EJECTION FRACTION TONSILLECTOMY PRIMARY/SECONDARY Tonsillectomy ALLERGIES Patient has no known allergies. MEDICATIONS traZODone (DESYREL) 150 mg tablet amitriptyline 50 mg tablet Take 50 mg by mouth daily at bedtime. simvastatin(ZOCOR 20 MG TAB) Take one(1) tablet daily at bedtime. CITALOPRAM 10 MG TAB Take one(1) tablet two(2) times daily. LISINOPRIL 10 MG TAB Take one(1) tablet daily. levothyroxine (SYNTHROID) 100 mcg ORAL Tab Take one(1) tablet daily. fluticasone (FLONASE) 50 mcg/actuation nasal spray Use 2 Sprays in each nostril once daily. Rinse mouth after use. (Patient not taking: Reported on 12/06/2019 ) clobetasol (TEMOVATE) 0.05 % ointment Apply to affected area BID x 8 weeks then use 1-2x weekly for maintenance clobetasol (TEMOVATE) 0.05 % ointment Apply 1 application to affected area twice daily. TO AFFECTED AREA. (Patient not taking: Reported on 09/26/2021 ) FAMILY HISTORY Problem Relation Age of Onset Heart Father Stroke Mother Thyroid Mother Hypertension Mother Diabetes Mother Thyroid Sister Thyroid Sister Social History Tobacco Use Smoking status: Every Day Types: Cigarettes Smokeless tobacco: Never Tobacco comments: smokes about 2 ciggs every day Substance Use Topics Alcohol use: No Drug use: No BP 164/92 Pulse 91 Temp 36.7 ?C (98 ?F) Resp 20 Wt 84.4 kg (186 lb) SpO2 97% BMI 30.02 kg/m? Review of Systems Constitutional: Negative for chills, fever and malaise/fatigue. HENT: Positive for ear pain. Negative for congestion, ear discharge, sinus pain and sore throat. Eyes: Negative for blurred vision, pain, discharge and redness. Respiratory: Negative for cough, hemoptysis, sputum production, shortness of breath, wheezing and stridor. Cardiovascular: Negative for chest pain. Gastrointestinal: Negative for abdominal pain, diarrhea, nausea and vomiting. Musculoskeletal: Negative for myalgias. Skin: Negative for itching and rash. Neurological: Negative for dizziness and headaches. Objective Physical Exam Constitutional: General: She is not in acute distress. Appearance: She is not diaphoretic. HENT: Head: Normocephalic. Right Ear: Tympanic membrane, ear canal and external ear normal. Left Ear: Tympanic membrane, ear canal and external ear normal. Mouth/Throat: Mouth: Mucous membranes are moist. Dentition: Abnormal dentition. Does not have dentures. Dental tenderness and dental caries present. No gingival swelling or dental abscesses. Pharynx: Oropharynx is clear. Uvula midline. No oropharyngeal exudate or posterior oropharyngeal erythema. Comments: Patient has multiple broken teeth and dental decay on the lower row of teeth. Upper teeth are dentures. Tooth #21 has broken and decayed . No signs of dental abscess. No swelling or bleeding of gumline. Eyes: Conjunctiva/sclera: Conjunctivae normal. Pupils: Pupils are equal, round, and reactive to light. Cardiovascular: Rate and Rhythm: Normal rate and regular rhythm. Heart sounds: Normal heart sounds. Pulmonary: Effort: Pulmonary effort is normal. No tachypnea, accessory muscle usage or respiratory distress. Breath sounds: Normal breath sounds. No stridor. Musculoskeletal: Cervical back: Normal range of motion and neck supple. No rigidity or tenderness. Lymphadenopathy: Cervical: No cervical adenopathy. Skin: General: Skin is warm and dry. Neurological: Mental Status: She is alert and oriented to person, place, and time. ASSESSMENT/PLAN: 1. Dental infection - ICD9: 522.4, ICD10: K04.7 Patient diagnosed with dental infection. No signs of deep neck infection. Will be placed on amoxicillin. Has tolerated this antibiotic in th (more content not included)... [facility] 02-10-2022 Instructions Marcial Dewey APRN.JOY - 02/10/2022 1:41 PM EST TOOTHACHE: Your exam shows that your toothache is probably due to tooth decay and infection. Poor dental care is the main cause of this problem. Swelling and redness around a painful tooth often means you have a dental abscess. Pain medicine and antibiotics can help reduce symptoms, but you will need to see a dentist within the next few days to have your problem properly treated. Fillings or root canal work may be needed to save your tooth. If the problem is severe, your tooth may need to be pulled. Please return here right away if you have a fever over 101F, can t swallow, or develop severe swelling. documented in this encounter [facility] 02-10-2022 History of Present illness Narrative Images from the original note were not included. Subjective HPI Nontoxic-appearing female presents urgent care chief complaint low left lower dental infection. Duration of symptoms on and off for the last few months. Associated symptoms dental pain and left ear pain. Was seen here in September of this year. Diagnosed with dental infection. Was placed on amoxicillin this did help for short period time. Presents today for reevaluation. States she is establishing with a dentist tomorrow. Denies any trauma. Denies any fever body aches chills difficulty swallowing difficulty handling secretions decreased range of motion neck pain of floor of mouth. Past medical history prescription medication use allergies reviewed. .Patient presents with: Dental Problem: L lower tooth infection, L ear pain x months PAST MEDICAL HISTORY Diagnosis Date GERD (gastroesophageal reflux disease) Hyperlipidemia Hypertension Hypothyroidism PAST SURGICAL HISTORY Procedure Laterality Date DELIVERY ONLY , low cervical ESOPHAGOGASTRODUODENOSCOPY TRANSORAL DIAGNOSTIC 02/16/14 GALLBLADDER /EJECTION FRACTION TONSILLECTOMY PRIMARY/SECONDARY <AGE 14 Tonsillectomy ALLERGIES Patient has no known allergies. MEDICATIONS traZODone (DESYREL) 150 mg tablet amitriptyline 50 mg tablet Take 50 mg by mouth daily at bedtime. simvastatin(ZOCOR 20 MG TAB) Take one(1) tablet daily at bedtime. CITALOPRAM 10 MG TAB Take one(1) tablet two(2) times daily. LISINOPRIL 10 MG TAB Take one(1) tablet daily. levothyroxine (SYNTHROID) 100 mcg ORAL Tab Take one(1) tablet daily. fluticasone (FLONASE) 50 mcg/actuation nasal spray Use 2 Sprays in each nostril once daily. Rinse mouth after use. (Patient not taking: Reported on 12/06/2019 ) clobetasol (TEMOVATE) 0.05 % ointment Apply to affected area BID x 8 weeks then use 1-2x weekly for maintenance clobetasol (TEMOVATE) 0.05 % ointment Apply 1 application to affected area twice daily. TO AFFECTED AREA. (Patient not taking: Reported on 09/26/2021 ) FAMILY HISTORY Problem Relation Age of Onset Heart Father Stroke Mother Thyroid Mother Hypertension Mother Diabetes Mother Thyroid Sister Thyroid Sister Social History Tobacco Use Smoking status: Every Day Types: Cigarettes Smokeless tobacco: Never Tobacco comments: smokes about 2 ciggs every day Substance Use Topics Alcohol use: No Drug use: No BP 164/92 Pulse 91 Temp 36.7 C (98 F) Resp 20 Wt 84.4 kg (186 lb) SpO2 97% BMI 30.02 kg/m Review of Systems Constitutional: Negative for chills, fever and malaise/fatigue. HENT: Positive for ear pain. Negative for congestion, ear discharge, sinus pain and sore throat. Eyes: Negative for blurred vision, pain, discharge and redness. Respiratory: Negative for cough, hemoptysis, sputum production, shortness of breath, wheezing and stridor. Cardiovascular: Negative for chest pain. Gastrointestinal: Negative for abdominal pain, diarrhea, nausea and vomiting. Musculoskeletal: Negative for myalgias. Skin: Negative for itching and rash. Neurological: Negative for dizziness and headaches. Objective Physical Exam Constitutional: General: She is not in acute distress. Appearance: She is not diaphoretic. HENT: Head: Normocephalic. Right Ear: Tympanic membrane, ear canal and external ear normal. Left Ear: Tympanic membrane, ear canal and external ear normal. Mouth/Throat: Mouth: Mucous membranes are moist. Dentition: Abnormal dentition. Does not have dentures. Dental tenderness and dental caries present. No gingival swelling or dental abscesses. Pharynx: Oropharynx is clear. Uvula midline. No oropharyngeal exudate or posterior oropharyngeal erythema. Comments: Patient has multiple broken teeth and dental decay on the lower row of teeth. Upper teeth are dentures. Tooth #21 has broken and decayed . No signs of dental abscess. No swelling or bleeding of gumline. Eyes: Conjunctiva/sclera: Conjunctivae normal. Pupils: Pupils are equal, round, and reactive to light. Cardiovascular: Rate and Rhythm: Normal rate and regular rhythm. Heart sounds: Normal heart sounds. Pulmonary: Effort: Pulmonary effort is normal. No tachypnea, accessory muscle usage or respiratory distress. Breath sounds: Normal breath sounds. No stridor. Musculoskeletal: Cervical back: Normal range of motion and neck supple. No rigidity or tenderness. Lymphadenopathy: Cervical: No cervical adenopathy. Skin: General: Skin is warm and dry. Neurological: Mental Status: She is alert and oriented to person, place, and time. ASSESSMENT/PLAN: 1. Dental infection - ICD9: 522.4, ICD10: K04.7 Patient diagnosed with dental infection. No signs of deep neck infection. Will be placed on amoxicillin. Has tolerated this antibiotic in the past. Follow-up with dentist as scheduled. Patient was educated on supportive therapies. Follow-up with PCP 2 to 3 days for repeat BP check. Patient was instructed to immediately proceed to emergency room for any new, worsening, or symptoms lasting longer than anticipated. The patient's clinical presentation is otherwise unremarkable at this time. Based on exam and clinical finding, the patient is stable for discharge. Plan of care was discussed with patient. Patient verbalizes understanding and agrees to plan of care. This note was generated using Xtreme Power software. It may contain errors in wording, punctuation, or spelling. Marcial Dewey APRN.JOY documented in this encounter [facility] 09-26-2021 Note HNO ID: [id number] Author: Bibi Buckner PA-C Service: ? Author Type: Physician Bagger Meat Type: Progress Notes Filed: 09/26/2021 1:55 PM Note Text: This note was created using Spritz. Subjective Jeronimo Gomez is a 76 year old female. HPI Patient presents with left ear pain and tooth pain over the past 4 days. She denies any trouble hearing out of her ears. No recent swimming. No cold symptoms. No fever. She states she has a broken tooth on the left lower jaw as well that she thought maybe was causing some pain. Denies any facial swelling. Review of Systems HENT: Positive for dental problem and ear pain. Negative for ear discharge, facial swelling, sinus pressure, sinus pain and sore throat. Eyes: Negative. Respiratory: Negative for cough. Gastrointestinal: Negative. Genitourinary: Negative. Musculoskeletal: Negative. All other systems reviewed and are negative. PAST MEDICAL HISTORY Diagnosis Date - GERD (gastroesophageal reflux disease) - Hyperlipidemia - Hypertension - Hypothyroidism Current Outpatient Medications Medication Sig Dispense Refill - traZODone (DESYREL) 150 mg tablet 5 - amitriptyline 50 mg tablet Take 50 mg by mouth daily at bedtime. - simvastatin(ZOCOR 20 MG TAB) Take one(1) tablet daily at bedtime. 0 - CITALOPRAM 10 MG TAB Take one(1) tablet two(2) times daily. 0 - LISINOPRIL 10 MG TAB Take one(1) tablet daily. 0 - levothyroxine (SYNTHROID) 100 mcg ORAL Tab Take one(1) tablet daily. 0 - amoxicillin (AMOXIL) 875 mg tablet Take 1 tablet by mouth twice daily for 7 days. 14 tablet 0 - fluticasone (FLONASE) 50 mcg/actuation nasal spray Use 2 Sprays in each nostril once daily. Rinse mouth after use. (Patient not taking: Reported on 12/06/2019 ) 1 Bottle 0 - clobetasol (TEMOVATE) 0.05 % ointment Apply to affected area BID x 8 weeks then use 1-2x weekly for maintenance 30 g 2 - clobetasol (TEMOVATE) 0.05 % ointment Apply 1 application to affected area twice daily. TO AFFECTED AREA. (Patient not taking: Reported on 09/26/2021 ) 15 g 1 No current facility-administered medications for this visit. PAST SURGICAL HISTORY Procedure Laterality Date - DELIVERY ONLY , low cervical - ESOPHAGOGASTRODUODENOSCOPY TRANSORAL DIAGNOSTIC 02/16/14 - GALLBLADDER /EJECTION FRACTION - TONSILLECTOMY PRIMARY/SECONDARY Tonsillectomy FAMILY HISTORY Problem Relation Age of Onset - Heart Father - Stroke Mother - Thyroid Mother - Hypertension Mother - Diabetes Mother - Thyroid Sister - Thyroid Sister Social History Tobacco Use - Smoking status: Current Every Day Smoker Types: Cigarettes - Smokeless tobacco: Never Used - Tobacco comment: smokes about 2 ciggs every day Substance Use Topics - Alcohol use: No - Drug use: No Objective BP 132/68 Pulse 98 Temp 36.9 ?C (98.4 ?F) Resp 18 Wt 87.8 kg (193 lb 9.6 oz) SpO2 97% BMI 31.25 kg/m? Physical Exam Vitals reviewed. Constitutional: Appearance: Normal appearance. HENT: Head: Normocephalic and atraumatic. Right Ear: Tympanic membrane, ear canal and external ear normal. Left Ear: Tympanic membrane, ear canal and external ear normal. Mouth/Throat: Comments: Patient has multiple broken teeth and dental decay on the lower row of teeth. Upper teeth are dentures. Tooth #21 has broken and decayed and she points to this as being tender. No swelling of the gumline. She has some mild overlying facial swelling however. No trismus. No sign of Nitza's angina. Neurological: Mental Status: She is alert. Assessment and Plan ASSESSMENT/PLAN: 1. Dental infection - ICD9: 522.4, ICD10: K04.7 We will treat with amoxicillin. Follow-up with dentist. I feel her ear pain is likely referred from her teeth. Red flags for ER care. Patient agreeable Bibi Buckner PA-C [facility] 09-26-2021 History of Present illness Narrative This note was created using NoteWriter. Subjective Jeronimo Gomez is a 76 year old female. HPI Patient presents with left ear pain and tooth pain over the past 4 days. She denies any trouble hearing out of her ears. No recent swimming. No cold symptoms. No fever. She states she has a broken tooth on the left lower jaw as well that she thought maybe was causing some pain. Denies any facial swelling. Review of Systems HENT: Positive for dental problem and ear pain. Negative for ear discharge, facial swelling, sinus pressure, sinus pain and sore throat. Eyes: Negative. Respiratory: Negative for cough. Gastrointestinal: Negative. Genitourinary: Negative. Musculoskeletal: Negative. All other systems reviewed and are negative. PAST MEDICAL HISTORY Diagnosis Date GERD (gastroesophageal reflux disease) Hyperlipidemia Hypertension Hypothyroidism Current Outpatient Medications Medication Sig Dispense Refill traZODone (DESYREL) 150 mg tablet 5 amitriptyline 50 mg tablet Take 50 mg by mouth daily at bedtime. simvastatin(ZOCOR 20 MG TAB) Take one(1) tablet daily at bedtime. 0 CITALOPRAM 10 MG TAB Take one(1) tablet two(2) times daily. 0 LISINOPRIL 10 MG TAB Take one(1) tablet daily. 0 levothyroxine (SYNTHROID) 100 mcg ORAL Tab Take one(1) tablet daily. 0 amoxicillin (AMOXIL) 875 mg tablet Take 1 tablet by mouth twice daily for 7 days. 14 tablet 0 fluticasone (FLONASE) 50 mcg/actuation nasal spray Use 2 Sprays in each nostril once daily. Rinse mouth after use. (Patient not taking: Reported on 12/06/2019 ) 1 Bottle 0 clobetasol (TEMOVATE) 0.05 % ointment Apply to affected area BID x 8 weeks then use 1-2x weekly for maintenance 30 g 2 clobetasol (TEMOVATE) 0.05 % ointment Apply 1 application to affected area twice daily. TO AFFECTED AREA. (Patient not taking: Reported on 09/26/2021 ) 15 g 1 No current facility-administered medications for this visit. PAST SURGICAL HISTORY Procedure Laterality Date DELIVERY ONLY , low cervical ESOPHAGOGASTRODUODENOSCOPY TRANSORAL DIAGNOSTIC 02/16/14 GALLBLADDER /EJECTION FRACTION TONSILLECTOMY PRIMARY/SECONDARY <AGE 14 Tonsillectomy FAMILY HISTORY Problem Relation Age of Onset Heart Father Stroke Mother Thyroid Mother Hypertension Mother Diabetes Mother Thyroid Sister Thyroid Sister Social History Tobacco Use Smoking status: Current Every Day Smoker Types: Cigarettes Smokeless tobacco: Never Used Tobacco comment: smokes about 2 ciggs every day Substance Use Topics Alcohol use: No Drug use: No Objective BP 132/68 Pulse 98 Temp 36.9 C (98.4 F) Resp 18 Wt 87.8 kg (193 lb 9.6 oz) SpO2 97% BMI 31.25 kg/m Physical Exam Vitals reviewed. Constitutional: Appearance: Normal appearance. HENT: Head: Normocephalic and atraumatic. Right Ear: Tympanic membrane, ear canal and external ear normal. Left Ear: Tympanic membrane, ear canal and external ear normal. Mouth/Throat: Comments: Patient has multiple broken teeth and dental decay on the lower row of teeth. Upper teeth are dentures. Tooth #21 has broken and decayed and she points to this as being tender. No swelling of the gumline. She has some mild overlying facial swelling however. No trismus. No sign of Nitza's angina. Neurological: Mental Status: She is alert. Assessment and Plan ASSESSMENT/PLAN: 1. Dental infection - ICD9: 522.4, ICD10: K04.7 We will treat with amoxicillin. Follow-up with dentist. I feel her ear pain is likely referred from her teeth. Red flags for ER care. Patient agreeable Bibi Buckner PA-C documented in this encounter [facility] documented as of this encounter (statuses as of 09/26/2021) [facility] History of Past illness Narrative* Problem Noted Date Resolved Date Esophageal reflux 02/16/2014 02/16/2014 documented as of this encounter (statuses as of 02/10/2022) [facility] History of Past illness Narrative* Problem Noted Date Resolved Date Esophageal reflux 02/16/2014 02/16/2014 documented as of this encounter (statuses as of 07/12/2022) [facility] Dental infection- Primary Acute apical periodontitis of pulpal origin [facility] Diagnosis Dental infection- Primary Acute apical periodontitis of pulpal origin [facility] Diagnosis Acute cough- Primary Rhinosinusitis Unspecified sinusitis (chronic) documented in this encounter [facility] Reason for Referral Specialty Diagnoses / Procedures Referred By Nusrat freeman Referred To Contact Diagnoses Acute cough Clary Arshad [employer]OCIATE[employer]ING [employer]STRU[employer] [address] [place] [address] Referral ID Status Reason Start Date Expiration Date V isits Requested Visits Authorized [id number] Pending Review 1 1 Summary Purpose Family History No Family History Records Found Advance Directives No Advanced Directives Records Found Additional Source Comments Source Comments (unrecognize d section and content) In the event this informatio n is protected by the Federal Confidentiality of Alcohol and Drug Abuse Patient Records regulations: The Federal rules restrict any use of the information to criminally investigate or prosecute any alcohol or drug abuse patient.[facility] the event this information is protected by the Federal Confidentiality of Alcohol and Drug Abuse Patient Records regulations: The Federal rules restrict any use of the information to criminally investigate or prosecute any alcohol or drug abuse patient.[facility] the event this information is protected by the Federal Confidentiality of Alcohol and Drug Abuse Patient Records regulations: The Federal rules restrict any use of the information to criminally investigate or prosecute any alcohol or drug abuse patient.[facility] Reason for Visit (unrecogniz ed section and content) Reason Comments Dental Problem L lower tooth infect ion, L ear pain x months Reason Comments Head Congestion chest congestion and cough x 1 week Care Teams (unrecognized sec tion and content) Scuba Instructor Relationship Specialty Start Date End Date Skylar Davalos MD PCP - General Internal Medicine 03/14/19 Scuba Instructor Relationship Specialty Start Date End Date Skylar Davalos MD PCP - General Internal Medicine 03/14/19 INFORMATION SOURCE (unrecogn ized section and content) FOR RECORDS PERTAINING TO PATIENTS WHO ARE OR HAVE BEEN ENROLLED IN A CHEMICAL DEPENDENCY/SUBSTANCEABUSE PROGRAM, SOME INFORMATION MAY BE OMITTED. This clinical summary was aggregated from multiple sources. Caution should be exercised in using it in the provision of clinical care. This summary normalizes information from multiple sources, and as a consequence, information in this document may materially change the coding, format and clinical context of patient data. In addition, data may be omitted in some cases. CLINICAL DECISIONS SHOULD BE BASED ON THE PRIMARY CLINICAL RECORDS. [employer] [facility]. provides no warranty or guarantee of the accuracy or completeness of information in this document.
== END | disposition home or self-care (01) ==
PROVIDERS: PCP Internal Medicine; Referring Provider Internal Medicine; Visit Provider Internal Medicine
DX: E07.9 Disorder of thyroid, unspecified (principal)
CPT/HCPCS: 36415; 84443

== ENCOUNTER → 2023-06-25 | Outpatient (CLI) | payer MEDICARE, SELFPAY ==
--- NOTE | 2023-06-25 10:43 | BD_ITS ---
STUDY: DUAL ENERGY X-RAY ABSORPTIOMETRY / DXA REASON FOR EXAM: Female, 78 years old. Post menopausal TECHNIQUE: Bone Mineral Density (BMD) measurements of lumbar spine and bilateral hips were obtained. COMPARISON: Comparison is made with prior study dated March 28, 2019. FINDINGS: Lumbar Spine (L1-L4): g/cm2 (1.237) / T-score (2.0) / Z-score (4.4) Findings are suggestive of normal bone density with a low fracture risk. Left Femur Total: g/cm2 (0.999) / T-score (0.5) / Z-score (2.3) Left Femoral Neck: g/cm2 (0.726) / T-score (-1.1) / Z-score (1.0) Right Femur Total: g/cm2 (0.949) / T-score (0.1) / Z-score (1.9) Right Femoral Neck: g/cm2 (0.682) / T-score (-1.5) / Z-score (0.6) The T-Scores on the most recent prior examination were: Lumbar Spine (L1-L4): There has been worsening of bone density since the previous examination. Left Femur Total: which represents an improvement of 8.3%. Right Femur Total: which represents an improvement of 6.5%. BD/Dexa Bone Density Study IMPRESSION: The patient is considered osteopenic as outlined below according to World Zay Organization (WHO) criteria with a low fracture risk. There has been improvement of bone density since the previous examination. Reference Information: The T-score is the number of standard deviations above or below the standard which is normal for young adults at their peak bone mineral density. The World Health Organization (WHO) interprets the T-scores as follows: Above -1 Normal bone density Between -1 and -2.5 Osteopenia Equal to / or below -2.5 Osteoporosis As a practical clinical guideline, osteopenia may be graded as follows: Mild -1 through -1.5 Moderate -1.6 through -2.0 Severe -2.1 through -2.4 The Z-score is the number of standard deviations above or below age-matched controls. A Z-score of less than -1.5 would be considered abnormal. References: 1. NIH Osteoporosis and Related Bone Diseases www osteo.org 2. International Society for Clinical Densitometry www iscd.org 3. National Osteoporosis Foundation www nof.org Electronically Signed: Eligio Bell MD at 10:30 EDT ,
== END | disposition home or self-care (01) ==
PROVIDERS: PCP Internal Medicine; Referring Provider Internal Medicine; Visit Provider Internal Medicine
DX: Z78.0 Asymptomatic menopausal state (principal)
CPT/HCPCS: 77080

== ENCOUNTER → 2023-07-04 | Outpatient (CLI) | payer MEDICARE, SELFPAY ==
[2023-07-04 14:18] LABS: Bacteria 0 SEEN /hpf (None Seen); Mucous, Urine 0 SEEN /hpf (<or=2+); Red Blood Cells-Urine 0 SEEN /hpf (0-5)
[2023-07-04 14:28] LABS: Color, Urine Yellow (Yellow); Glucose, Dipstick Normal (Normal); Ketone-Dipstick Negative (Negative); Leukocyte Esterase-Dipstick 500 /ul (Negative); Nitrite-Dipstick Negative (Negative); Occult Blood-Urine Negative /ul (Negative); Protein-Dipstick Negative (Negative); Urine Bilirubin Dipstick Negative (Negative); Urine Clarity Clear (Clear); Urine Urobilinogen Normal (Normal)
[2023-07-05 04:04] LABS: Squamous Epithelial Cells - UA 0-5 SEEN /hpf (5-10); White Blood Cells 5-10 SEEN /hpf (0-5)
== END | disposition home or self-care (01) ==
LOC: LAB 14:15
PROVIDERS: PCP Internal Medicine; Visit Provider Nurse Practitioner Family
DX: R30.0 Dysuria (principal)
CPT/HCPCS: 81001; 87086

== ENCOUNTER → 2023-07-16 | Outpatient (CLI) | payer MEDICARE, SELFPAY | END | disposition home or self-care (01) | PROVIDERS: PCP Internal Medicine; Referring Provider Nurse Practitioner Family; Visit Provider Nurse Practitioner Family | DX: N20.0 Calculus of kidney (principal); R30.0 Dysuria; N89.8 Other specified noninflammatory disorders of vagina | CPT/HCPCS: 87070; 87086; 87088; 87205 ==

== ENCOUNTER → 2023-07-21 | Outpatient (CLI) | payer MEDICARE, MEDICAID, SELFPAY ==
--- NOTE | 2023-07-21 12:27 | US_ITS ---
EXAM: US PELVIS TRANSABDOMINAL, COMPLETE CLINICAL INDICATION: AUB -- only pelvic-patient will not tolerate transvaginal TECHNIQUE: Transabdominal pelvic ultrasound was performed with grayscale and color Doppler imaging. COMPARISON: No relevant prior studies available. FINDINGS: UTERUS/CERVIX: Anteverted uterus with no masses. Uterus measures 8.3 x 5.3 x 3.4 cm and demonstrates an endometrial complex with a thickness of 7 mm. Cervix appears normal. No IUD. RIGHT OVARY: Ovaries are not visualized bilaterally, potentially due to positioning and/or overlying bowel gas. LEFT OVARY: See above. VAGINA: Patient did not tolerate the transvaginal portion of the examination. FREE FLUID: No adnexal masses and no free fluid. BLADDER: Unremarkable as visualized. Wall is normal thickness for degree of distention. US/Pelvic (Non ) IMPRESSION: 1. Unremarkable uterus. 2. Ovaries not visualized potentially due to positioning and/or overlying bowel gas. 3. No adnexal masses or free fluid. Electronically Signed: Eric Huerta MD at 2:14 EDT ,
== END | disposition home or self-care (01) ==
PROVIDERS: PCP Internal Medicine; Referring Provider Nurse Practitioner Family; Visit Provider Nurse Practitioner Family
DX: N95.0 Postmenopausal bleeding (principal)
CPT/HCPCS: 76856

== ENCOUNTER → 2023-09-03 | Outpatient (CLI) | payer MEDICARE, MEDICAID, SELFPAY ==
[2023-09-03 12:47] LABS: Anion Gap 8 (5-15); BUN 15 mg/dL (7-18); BUN/Creat Ratio 15.7 RATIO (10-20); Calcium,Total 9.4 mg/dL (8.5-10.1); Chloride 106 mmol/L (98-107); Creatinine, Serum 0.96 mg/dL (0.55-1.02); EST Glomerular Filtration Rate 60 mL/min (>60); Est Glom Filt Rate - Afr Amer 73 mL/min (>60); Glucose 150 mg/dL (74-106); Potassium 4.3 mmol/L (3.5-5.1); Sodium Level 137 mmol/L (136-145)
== END | disposition home or self-care (01) ==
LOC: BIMLAB 08:29
PROVIDERS: PCP Internal Medicine; Referring Provider Internal Medicine; Visit Provider Internal Medicine
DX: E03.9 Hypothyroidism, unspecified (principal)
CPT/HCPCS: 36415; 80048; 84443

== ENCOUNTER 2023-09-29 06:35 | Day surgery (SDC) | payer MEDICARE, MEDICAID, SELFPAY ==
--- NOTE | 2023-09-25 11:53 | EKG12_ITS ---
Test Reason : PREOP Blood Pressure : / mmHG Vent. Rate : 081 BPM Atrial Rate : 081 BPM P-R Int : 188 ms QRS Dur : 094 ms QT Int : 378 ms P-R-T Axes : 020 020 050 degrees QTc Int : 439 ms Normal sinus rhythm Normal ECG Confirmed by JCARLOS MARTIN, GRZEGORZ ([id number]), film and video editor GERARDO CUEVAS ([id number]) on 09/28/2023 11:11:16 AM Referred By: Manda Jimenez Confirmed By:GRZEGORZ GARBER MD
[2023-09-25 12:05] LABS: Hematocrit 39.3 % (37-47); Mean Corp Hgb Conc 33.1 g/dL (32-36); Mean Corpuscular Hgb 29.2 pg (27.0-32.0); Mean Corpuscular Volume 88.3 fL (81-99); Mean Platelet Vol. 9.3 fl (6.2-12.0); Platelet Count 328 K/mm3 (150-450); RBC Distribution Width CV 13.5 % (11.6-14.6); RBC Distribution Width SD 43.6 fl (35.1-43.9); Red Blood Count 4.45 M/mm3 (4.2-5.4); White Blood Count 9.2 K/mm3 (4.4-11.0)
[2023-09-25 12:45] LABS: AST(SGOT) 43 U/L (15-37); Alanine Aminotransfer ALT/SGPT 24 U/L (13-56); Albumin, Serum 3.6 g/dL (3.2-5.0); Alkaline Phosphatase 94 U/L (45-117); Anion Gap 11 (5-15); BUN 11 mg/dL (7-18); BUN/Creat Ratio 13.6 RATIO (10-20); Calcium,Total 9.2 mg/dL (8.5-10.1); Chloride 106 mmol/L (98-107); Creatinine, Serum 0.81 mg/dL (0.55-1.02); EST Glomerular Filtration Rate 73 mL/min (>60); Est Glom Filt Rate - Afr Amer 88 mL/min (>60); Globulin 3.6 g/dL (2.2-4.2); Glucose 186 mg/dL (74-106); Potassium 3.5 mmol/L (3.5-5.1); Protein, Total 7.2 g/dL (6.4-8.2); Sodium Level 136 mmol/L (136-145)
[2023-09-29] VITALS (9 sets, daily range): BP systolic 106–160; BP diastolic 51–67; PULSE 61–77; RESP 16; TEMP 36.3–37.2; O2SAT 68–99; BMI 34.0
[2023-09-29] MEDS: Lactated Ringers 1,000 ML 15 ML IV (07:12)
--- NOTE | 2023-09-29 07:22 | PCM.HP.BLA ---
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: No Is patient in pain?: No Allergies No Known Allergies Allergy (Verified 08/31/23 08:05) Medications ?Medication ?Instructions ?Recorded ?Confirmed ?Type pantoprazole 40 mg tablet,delayed 40 mg PO BID #60 tabs 01/09/21 08/31/23 Rx release bupropion HCl 150 mg 24 hr tablet, 150 mg PO QAM #90 tabs 10/29/22 08/31/23 Rx extended release atorvastatin 40 mg tablet 40 mg PO QHS #90 tabs 01/21/23 08/31/23 Rx cholecalciferol (vitamin D3) 125 125 mcg PO .QOD 01/23/23 08/31/23 History mcg (5,000 unit) capsule multivitamin with minerals 1 tab PO DAILY 01/23/23 08/31/23 History (Hair,Skin and Nails tablet) amlodipine 5 mg tablet 7.5 mg (1.5 x 5 mg) PO DAILY 3 04/27/23 08/31/23 Rx months #135 tabs levothyroxine 137 mcg tablet 137 mcg PO DAILY #90 tabs 05/20/23 08/31/23 Rx trazodone 50 mg tablet 50 mg PO QHS PRN insomnia #90 tabs 06/22/23 08/31/23 Rx nystatin 100,000 unit/gram topical 1 applic topical BID #15 grams 07/16/23 08/31/23 Rx powder clobetasol 0.05 % topical ointment 1 applic topical BID #30 grams 08/13/23 08/31/23 Rx Post menopausal: No Patient : No : No [facility] Medical History Post-menopausal Cough Cutaneous lupus erythematosus Facial cellulitis Perioral dermatitis Bloating Tubular adenoma of colon Flu vaccine need Venous insufficiency of both lower extremities Wears glasses Wears dentures Depression Anxiety Alcohol use Discoloration of skin Thyroid disease Anemia Back pain Gastric reflux Smoker History of edema History of echocardiogram Hypertension Facial dermatitis Colon cancer screening Hypertension GERD (gastroesophageal reflux disease) Depression Anxiety Thyroid disease Kidney stones IBS (irritable bowel syndrome) High cholesterol Gastrointestinal problem Gallstones H/O emotional problems Back problem Arthritis Seasonal allergies Surgical History Hx of colonoscopy History of Hx of tonsillectomy History of laparoscopic cholecystectomy Family History Father AlcoholismBrother AlcoholismSister Anxiety Arthritis Depression Hypertension Kidney disease hormone problems Thyroid disorderMother Arthritis Diabetes Hypertension High cholesterol CVA (cerebral vascular accident) Thyroid disorder Social History Smoking Status: Former smoker alcohol intake: current details: occasionally substance use type: does not use caffeine: Yes what type of physical activity do you participate in: none seatbelt use: always do you feel safe at home: Yes additional social history: HPI Surgical Consult Details: JERONIMO GOINS is a 78 year old who presents for a preop exam for a scheduled hysteroscopy D&C. She started experiencing postmenopausal bleeding a month ago that has since stopped. Attempt to perform a vaginal exam was performed x 2 without success. Ultrasound showed the following: FINDINGS: UTERUS/CERVIX: Anteverted uterus with no masses. Uterus measures 8.3 x 5.3 x 3.4 cm and demonstrates an endometrial complex with a thickness of 7 mm. Cervix appears normal. No IUD. RIGHT OVARY: Ovaries are not visualized bilaterally, potentially due to positioning and/or overlying bowel gas. LEFT OVARY: See above. VAGINA: Patient did not tolerate the transvaginal portion of the examination. FREE FLUID: No adnexal masses and no free fluid. BLADDER: Unremarkable as visualized. Wall is normal thickness for degree of distention. US/Pelvic (Non ) IMPRESSION: 1. Unremarkable uterus. 2. Ovaries not visualized potentially due to positioning and/or overlying bowel gas. 3. No adnexal masses or free fluid. History 1 Elective abortions Hx Para 1 Spontaneous abortions Hx # Term Pregnancies Ectopic pregnancies Hx # Pregnancies Multiple births # of living children Past Pregnancies Del. Date Name GA/Weeks Outcome Route Bth Weight Infant Gen Labor Lgth Anesthesia Del Locatn Provider FOB Unknown [place] ROS Const ROS Unobtainable: All systems reviewed & are unremarkable except as noted in H Resp Resp: Reports system reviewed and no additional complaints, except as documented; Denies cough GI GI: Reports as per HPI Psych Psych: Reports system reviewed and no additional complaints, except as documented Exam Const General: cooperative, healthy appearing, comfortable and no acute distress Resp Effort & Inspection: normal respiratory effort Skin General: no rashes or lesions noted Psych Appearance: grossly normal Speech and Movement: speech and movement normal Coding Level of Care Code Off vis,est,level 4 Diagnoses Post-menopausal bleeding N95.0 Assessment and Plan Assessment and Plan (1) Post-menopausal bleeding: Status: Acute Plan: After discussing the patient's diagnosis and treatment plan options, patient wishes to proceed with surgical management. I have discussed with the patient the risks, benefits, and alternatives of the procedure which include but are not limited to risks of anesthesia, bleeding, infection, possible damage to bowel, bladder, or surrounding vasculature which could lead to additional surgery to evaluate any complications. Patient agrees to procedure and wishes to proceed. ACOG/uptodate references given for additional information regarding procedure. plan is for hysteroscopy dilation and curettage, pap under anesthesia for postmenopausal bleeding.
--- NOTE | 2023-09-29 07:54 | PCM.PRE.AN2 ---
ASA Classification* ASA Classification ASA Classification: 3 Assessment & Plan Anesthesia* Anesthesia Assessment Anesthesia Assessment: Discussed sedation and/or anesthesia options, risks, benefits, and alternatives with patient/parents/legal guardian/POA. Questions invited. The patient/parents/legal guardian/POA seems to understand and agrees to proceed with anesthesia plan. Reviewed the physical assessment, medical history, allergy history and patient home medications list prior to surgery/procedure/anesthetic and documented any changes. Performed airway and anesthesia risk assessments. Anesthesia Type Anesthesia Type: MAC Anesthesia Focused Assessment* Temperature: 98 F Pulse Rate: 77 Blood Pressure: 160/67 Respiratory Rate: 16 Pulse Ox: 99 Airway Assessment Mouth opens: >3 cm Mallampati Score: II Focused Labs Anesthesia Preop lab: CBC WBC 9.2 K/mm3 (4.4-11.0) 09/25/23 11:44 RBC 4.45 M/mm3 (4.2-5.4) 09/25/23 11:44 Hgb 13.0 g/dL (12.0-15.0) 09/25/23 11:44 Hct 39.3 % (37-47) 09/25/23 11:44 Plt Count 328 K/mm3 (150-450) 09/25/23 11:44 CHEMISTRY Potassium 3.5 mmol/L (3.5-5.1) 09/25/23 11:44 Sodium 136 mmol/L (136-145) 09/25/23 11:44 BUN 11 mg/dL (7-18) 09/25/23 11:44 Creatinine 0.81 mg/dL (0.55-1.02) 09/25/23 11:44 Glucose 186 mg/dL (74-106) H 09/25/23 11:44 TSH 4.00 uIU/mL (0.358-3.74) H 09/03/23 08:31 COAG Pre-Assessment Diagnosis/Proposed Procedure Planned Operative Procedure(s): HYSTEROSCOPY D&C PAP UNDER ANESTHESIA Anesthesia History Anesthesia History - senior network administrator: Anesthesia History - senior network administrator Hx Hospitalization No 09/23/23 11:40 Any Problems With Anesthesia No 09/23/23 11:40 Cholinesterase deficiency No 09/23/23 11:40 You/Your Family Experience No 09/23/23 11:40 fever (hyperthermia) with Relationship Recent Exposure to Contagious No 09/29/23 07:07 Disease Does patient have nerve No 09/23/23 11:40 stimulator Patient instructed to have device shut off --Does patient have Pacemaker No 09/29/23 07:07 or ICD? When Was Last Pacemaker Check QUESTION #4 FULL TEXT: You/Your Family Experience fever (hyperthermia) with Anesthesia Last Oral Intake Last Oral intake: Last Oral Intake NPO since 02:30 09/29/23 07:07 Meds taken in AM with sips of water? Meds patient instructed to take am of surgery PONV PONV - senior network administrator: PONV - senior network administrator Female Yes 09/23/23 11:40 HX of Motion Sickness No 09/23/23 11:40 HX of N/V After Surgery No 09/23/23 11:40 Non-Smoker Yes 09/23/23 11:40 Duration of Surgery greater No 09/23/23 11:40 than 60 minutes Number of Risk Factors 2 09/23/23 11:40 PONV Score Moderate Risk 09/23/23 11:40 Height & Weight Height & Weight: Anesthesia: Height & Weight Height 5 ft 6 in 09/29/23 07:07 Weight: 95.8 kg 09/29/23 07:07 Body Mass Index (BMI) 34.0 09/29/23 07:07 Respiratory Assessment Respiratory Assessment - senior network administrator: Respiratory Tract Infection Hx - senior network administrator Hx Respiratory Tract Infection No 09/23/23 11:40 STOP Sleep Apnea STOP Sleep Apnea - senior network administrator: STOP Sleep Apnea - senior network administrator Hx Hypertension Yes: RUNS HIGH PER PATIENT 09/23/23 11:40 Hx Sleep Apnea No 09/23/23 11:40 CPAP BIPAP Do you snore loudly (louder No 09/23/23 11:40 than talking or can be heard Do you often feel tired/ No 09/23/23 11:40 fatigued/ sleepy during daytime? Has anyone observed you stop No 09/23/23 11:40 breathing during sleep? STOP Results Negative 09/23/23 11:40 QUESTION #5 FULL TEXT : Do you snore loudly (louder than talking or can be heard through closed doors)? Tobacco Use History Tobacco Use History - senior network administrator: Tobacco Use History - senior network administrator Tobacco Use Smoking Status Former smoker 09/23/23 11:40 Hx Tobacco Use No 09/23/23 11:40 Years Smoking Packs Smoked per Day Smoking Cessation Date was Yes - quit smoking within 15 09/23/23 11:40 within the last 15 years years Hx Smoking Cessation Date Hx Smoking Cessation Counseling Hematologic Medial History Hematologic Hx - senior network administrator: Hematologic Medical Hx - sciences dean Hx of Blood Transfusion No 09/23/23 11:40 Hx of Transfusion in last 3 No 09/23/23 11:40 Months Date of Last Transfusion (if within last 3 months) Ever experience any problems No 09/23/23 11:40 with transfusion(s)? Specify any problems Hx of Preganancy in last 3 No 09/23/23 11:40 Months Nurse Filling Out Transfusion DSCHRIBER 09/23/23 11:40 & Questions: Date: 09/23/23 09/23/23 11:40 Time: 11:42 09/23/23 11:40 Patient unable to answer at this time (ie. confused, unrespo /Reproduction History /Reproductive History - senior network administrator: /Reproductive Hx- senior network administrator Hx Now No 09/23/23 11:40 Gestational Age (in weeks): EDC: Hx Hx Para Hx Section SAB No 09/23/23 11:40 Active Medications Active Medications: Current Medications Generic Name Dose Route Start Last Admin Trade Name Freq PRN Reason Stop Dose Admin Lactated Ringer's 1,000 mls @ 15 mls/hr 09/29/23 07:00 09/29/23 07:12 IV 15 mls/hr .Q48H ROSE MARY Administration PFSH Medical History High cholesterol Former smoker Leg cramps Shortness of breath on exertion Type 2 diabetes mellitus Post-menopausal Cough Cutaneous lupus erythematosus Facial cellulitis Perioral dermatitis Bloating Tubular adenoma of colon Flu vaccine need Venous insufficiency of both lower extremities Wears glasses Wears dentures Depression Anxiety Alcohol use Thyroid disease Back pain Gastric reflux History of edema History of echocardiogram Facial dermatitis Colon cancer screening Hypertension GERD (gastroesophageal reflux disease) Depression Anxiety Thyroid disease Kidney stones IBS (irritable bowel syndrome) High cholesterol Gastrointestinal problem Gallstones H/O emotional problems Back problem Arthritis Seasonal allergies Home Medications ?Medication ?Instructions ?Recorded ?Last Taken ?Type bupropion HCl 150 mg 24 hr tablet, 150 mg PO QAM #90 tabs 10/29/22 Unknown Rx extended release atorvastatin 40 mg tablet 40 mg PO QHS #90 tabs 01/21/23 Unknown Rx amlodipine 5 mg tablet 7.5 mg (1.5 x 5 mg) PO DAILY 3 04/27/23 Unknown Rx months #135 tabs trazodone 50 mg tablet 50 mg PO QHS PRN insomnia #90 tabs 06/22/23 Unknown Rx metformin 500 mg tablet,extended 500 mg PO BID #60 tabs 09/07/23 Unknown Rx release 24 hr clobetasol 0.05 % topical ointment 1 applic topical BID PRN SKIN FOLDS 09/23/23 Unknown History levothyroxine 137 mcg capsule 137 mcg PO DAILY 09/23/23 Unknown History levothyroxine 137 mcg tablet 202.5 mcg PO WE 09/23/23 09/29/23 History nystatin 100,000 unit/gram topical 1 applic topical BID PRN SKIN FOLDS 09/23/23 Unknown History powder hydralazine 25 mg tablet 25 mg PO TID #90 tabs 09/25/23 Unknown Rx Allergy/AdvReac Type Severity Reaction Status Date / Time No Known Allergies Allergy Verified 09/29/23 07:06 Family History Father Alcoholism Brother Alcoholism Sister Anxiety Arthritis Depression Hypertension Kidney disease hormone problems Thyroid disorder Mother Arthritis Diabetes Hypertension High cholesterol CVA (cerebral vascular accident) Thyroid disorder Surgical History Hx of colonoscopy History of Hx of tonsillectomy History of laparoscopic cholecystectomy Social History Smoking Status: Former smoker alcohol intake: current details: occasionally substance use type: does not use caffeine: Yes what type of physical activity do you participate in: none seatbelt use: always do you feel safe at home: Yes additional social history: Review of Systems (Anesthesia) ROS Narrative System reviewed and no additional complaints, except as documented.
[2023-09-29 10:22] LABS: Bedside Glucose 125 mg/dL (74-106)
--- NOTE | 2023-09-29 10:47 | PCM.POST.ANE ---
Anesthesia: Postop Eval I Current Vital Signs Temperature: 99 F Pulse Rate: 72 Blood Pressure: 122/51 Respiratory Rate: 16 Pulse Ox: 95 Oxygen Delivery Method: Room Air Assessment Airway patent: Yes Spontaneous unlabored respirations: Yes Mental status: Awake nausea: No Vomiting: No Anesthesia Complication: No Fluid Hydration Crystalloid volume administer (ml): 400 Total IV fluid infused: 400 Progress Note Anesthesia document: Postop Eval 1 completed: Yes
--- NOTE | 2023-09-29 10:48 | DCINST_ITS ---
Discharge Instructions Diet Discharge Diet: No restrictions Activity Discharge Activity: Return to Normal Activity, May Shower and May Take a Tub Bath (after 1 week) May resume sexual activity in: 1-2 weeks Weight Bearing Status: Weight bearing as tolerated Lifting Restrictions: none Dressing / Incision Call your doctor if you observe: Fever of 101 or Higher, Using more than 1 pad per hour, Shortness of breath and Uncontrolled pain Follow Up Care Please Follow Up With: Manda Jimenez DO When: Call [phone] to schedule appointment. Test Results: Test results from this visit will be discussed in further detail at your follow- up appointment, if applicable. 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 clobetasol 0.05 % ointment 1 applic topical BID PRN (Reason: SKIN FOLDS) nystatin 100,000 unit/gram powder 1 applic topical BID PRN (Reason: SKIN FOLDS) Rx Instructions: to be applied to abdominal skin folds bupropion HCl 150 mg tablet extended release 24 hr 150 mg PO QAM Qty: 90 1RF atorvastatin 40 mg tablet 40 mg PO QHS Qty: 90 3RF amlodipine 5 mg tablet 7.5 mg PO DAILY 90 Days Qty: 135 1RF trazodone 50 mg tablet 50 mg PO QHS PRN (Reason: insomnia) Qty: 90 1RF hydralazine 25 mg tablet 25 mg PO TID Qty: 90 1RF Referrals / Follow Up: Skylar Kaufman MD [Primary Care Provider] - Disposition Disposition (needs filled in before D/C Order can be placed): Home, Self Care
--- NOTE | 2023-09-29 10:49 | PCM.OPRPT ---
Problems Associated Problem List Diagnoses (1) Vaginitis and vulvovaginitis: (2) Post-menopausal bleeding: (3) Vaginal irritation: (4) Vaginal bleeding: Report of Operation Date of Procedure: 09/29/23 Pre-Operative Diagnosis: vaginal bleeding ,postmenopausal Post-Operative Diagnosis: vaginal bleeding, postmenopausal Surgery/Procedure Performed:: pelvic exam under anesthesia Description of Surgical Findings:: obliterated vagina. no visible cervix. Surgeon: Manda Jimenez Type of Anesthesia: MAC Anesthesiologist: Erik Higginbotham Specimen's removed: pap Estimated Blood Loss (mL): 3cc Description of Procedure: Reason for surgery: postmenopausal bleeding and finding on ultrasound of 7 mm endometrium. The patient was brought to the operating room. MAC anesthetic was found to be adequate. Her legs were placed in stirrups. The external genitalia was noted to be markedly atrophic. The clitoral oswald and urethra were very difficult to find. A pediatric speculum was attempted to be placed in the vagina but the vagina was noted to be only approximately 2 cm in depth. And the cervix was obliterated. A spatula was used to collect a Pap smear of the vaginal vault. A sterile Q-tip was then inserted into the vagina used to gently wipe away some oozing of blood and to attempt to dissect tissue and find a path to the cervix. This was not successful. Due to the amount of bleeding with just a gentle exam, it is assumed that her vaginal bleeding is from atrophy. The decision was made to abort the procedure the patient tolerated this well sponge lap needle counts were correct x 2 she is now being brought to the recovery room in stable condition. Admit VTE Documentation VTE Present on Admission: No VTE Mechan Device Prophylaxis: SCD's VTE Pharm Prophylaxis ordered?: No Multi Select Codes Urinary/Genital Urinary/Genital CPT Codes: 65068 PEUA
--- NOTE | 2023-09-29 10:56 | PCM.POSTANE2 ---
Anesthesia Postop Eval I Sum Postop Eval Completion status Anesthesia document: Postop Eval 1 completed: Yes Anesthesia Postop Eval I Summary Anesthesia Postop Eval I Summary: Anesthesia Postop Eval I: Assessment Summary Airway patent Yes 09/29/23 10:48 [email or web address] Spontaneous unlabored Yes 09/29/23 10:48 [email or web address] respirations Mental status Awake 09/29/23 10:48 [email or web address] nausea No 09/29/23 10:48 [email or web address] Vomiting No 09/29/23 10:48 [email or web address] Anesthesia Postop Eval I: Fluid Summary Crystalloid volume administer 400 09/29/23 10:48 [email or web address] (ml) Colloids volume administered ( ml) Blood Product volume administered (ml) Total IV fluid infused 400 09/29/23 10:48 [email or web address] Anesthesia Postop Eval I: Summary Notes Anesthesia Complication No 09/29/23 10:48 [email or web address] Anesthesia Complication Comment: Post-operative progress note Anesthesia: Postop Eval II Evaluation Mental status: Awake and Calm Pain Level: 1 nausea: No Vomiting: No Complications Anesthesia Complication: No
[2023-10-04 13:06] LABS: HPV APTIMA, High Risk Negative (Negative)
== END 2023-09-29 12:00 | disposition home or self-care (01) ==
LOC: SDC 06:35 → AC 06:36
PROVIDERS: PCP Internal Medicine; Referring Provider Obstetrics & Gynecology; Visit Provider Obstetrics & Gynecology
PROC: 0UDB8ZZ Extraction of Endometrium, Via Natural or Artificial Opening Endoscopic (ICD-10-PCS; CPT 58558; principal; 2023-09-29 08:10)
DX: N76.0 Acute vaginitis (principal); E11.9 Type 2 diabetes mellitus without complications; N95.0 Postmenopausal bleeding; N93.9 Abnormal uterine and vaginal bleeding, unspecified; E03.9 Hypothyroidism, unspecified; I10 Essential (primary) hypertension; E78.00 Pure hypercholesterolemia, unspecified; F41.9 Anxiety disorder, unspecified; F32.A Depression, unspecified; K21.9 Gastro-esophageal reflux disease without esophagitis; Z79.899 Other long term (current) drug therapy; Z79.84 Long term (current) use of oral hypoglycemic drugs; Z87.891 Personal history of nicotine dependence
CPT/HCPCS: 57410; 00940; 36415; 80053; 82962; 85027; 86850; 86900; 86901; 87624; 88175; 93005; J7120; G0145; J2405

== ENCOUNTER → 2023-10-12 | Outpatient (CLI) | payer MEDICARE, MEDICAID, SELFPAY | END | disposition home or self-care (01) | PROVIDERS: PCP Internal Medicine; Referring Provider Obstetrics & Gynecology; Visit Provider Obstetrics & Gynecology | DX: R30.0 Dysuria (principal) | CPT/HCPCS: 87086; 87088 ==

== ENCOUNTER → 2023-11-30 | Outpatient (CLI) | payer MEDICARE, MEDICAID, SELFPAY ==
--- NOTE | 2023-11-30 11:45 | BI_ITS ---
MAMMOGRAPHY - BILATERAL SCREENING REASON FOR EXAM: Female, 78 years old. Routine annual screening examination. PERTINENT HISTORY: Non-contributory. TECHNIQUE: Digital bilateral breast annalee (3D mammographic acquisition) in the CC and MLO projections. 2-D mediolateral oblique (MLO) and craniocaudad (CC) views of both breasts were obtained. CAD: Full Field Digital Mammography with Computer Added Detection was performed. COMPARISON: Comparison is made with prior mammogram dated October 15, 2022 and May 20, 2021. FINDINGS: Breast Composition: The breasts are extremely dense, which lowers the sensitivity of mammography. There are no dominant masses or suspicious calcifications. Stable benign-appearing bilateral axillary lymph nodes. No other significant abnormalities are identified. There has been no significant change since the prior study. BI/SCRN MAMM (CAD)W/ANNALEE BILAT IMPRESSION: Stable bilateral screening mammogram. Yearly follow-up mammogram recommended. (A) ASSESSMENT CATEGORY: BIRADS Category 2: Benign. A letter regarding these results will be sent to the patient by the facility within 30 days. Approximately 10% of breast cancers are not detected by mammography. A normal mammogram should not delay biopsy of a clinically suspicious abnormality. [id number] Electronically Signed: Eligio Bell MD at 12:21 EDT ,
== END | disposition home or self-care (01) ==
LOC: OPBI 11:42
PROVIDERS: PCP Internal Medicine; Referring Provider Internal Medicine; Visit Provider Internal Medicine
DX: Z12.31 Encounter for screening mammogram for malignant neoplasm of breast (principal)
CPT/HCPCS: 77063; 77067

== ENCOUNTER → 2024-01-12 | Outpatient (CLI) | payer MEDICARE, MEDICAID, SELFPAY ==
[2024-01-12 16:10] LABS: Anion Gap 10 (5-15); BUN 13 mg/dL (7-18); BUN/Creat Ratio 13.9 RATIO (10-20); Calcium,Total 9.5 mg/dL (8.5-10.1); Chloride 103 mmol/L (98-107); Creatinine, Serum 0.93 mg/dL (0.55-1.02); EST Glomerular Filtration Rate 62 mL/min (>60); Est Glom Filt Rate - Afr Amer 75 mL/min (>60); Glucose 116 mg/dL (74-106); Sodium Level 135 mmol/L (136-145)
[2024-01-12 16:12] LABS: Hemoglobin A1c 6.8 % (3.8-5.6)
== END | disposition home or self-care (01) ==
LOC: BIMLAB 11:36
PROVIDERS: PCP Internal Medicine; Referring Provider Internal Medicine; Visit Provider Internal Medicine
DX: E11.9 Type 2 diabetes mellitus without complications (principal); E07.9 Disorder of thyroid, unspecified
CPT/HCPCS: 36415; 80048; 83036; 84443

== ENCOUNTER → 2024-01-19 | Outpatient (CLI) | payer MEDICARE, MEDICAID, SELFPAY ==
--- NOTE | 2024-01-19 12:36 | US_ITS ---
STUDY: ULTRASOUND OF THE FEMALE PELVIS - COMPLETE REASON FOR EXAM: Female, 78 years old. pelvic pain -- h/o thickened endometrium LMP: Menopause TECHNIQUE: Transabdominal TECHNICAL QUALITY: Adequate. COMPARISON: 07/21/2023 FINDINGS: The uterus is anteverted and is in a midline position. The uterus measures 8.1 x 5.3 x 3.5 cm. Normal uterine cervix. The endometrium measures 8 mm in thickness, and is hyperechoic. There is no demonstrated endometrial mass. There is no demonstrated myometrial mass. I.U.D. - The patient does not have an I.U.D. The ovaries are not visualized.. There is no fluid in the cul-de-sac. The pre void volume of the bladder was 53 ml. The post void volume of the bladder was ml. Polycystic ovary disease: No. US/Pelvic (Non ) IMPRESSION: Normal female pelvis. Electronically Signed: Alvarado Ely MD at 13:38 EST ,
== END | disposition home or self-care (01) ==
LOC: US 12:32
PROVIDERS: PCP Internal Medicine; Referring Provider Obstetrics & Gynecology; Visit Provider Obstetrics & Gynecology
DX: N93.9 Abnormal uterine and vaginal bleeding, unspecified (principal); R10.2 Pelvic and perineal pain
CPT/HCPCS: 76856

== ENCOUNTER → 2024-03-25 | Outpatient (CLI) | payer MEDICARE, MEDICAID, SELFPAY | END | disposition home or self-care (01) | LOC: LABSPEC 16:43 | PROVIDERS: PCP Internal Medicine; Referring Provider Obstetrics & Gynecology; Visit Provider Obstetrics & Gynecology | DX: R10.2 Pelvic and perineal pain (principal) | CPT/HCPCS: 87070; 87205 ==

== ENCOUNTER → 2024-03-31 | Outpatient (CLI) | payer MEDICARE, MEDICAID, SELFPAY ==
--- NOTE | 2024-03-31 15:27 | US_ITS ---
EXAM: US PELVIS TRANSABDOMINAL, COMPLETE CLINICAL INDICATION: thickened endometrium TECHNIQUE: Transabdominal pelvic ultrasound was performed with grayscale and color Doppler imaging. COMPARISON: 01/19/2024. 07/21/2023. FINDINGS: UTERUS/CERVIX: The uterus measures 8.7 x 4.8 x 3.3 cm. The endometrial stripe measures 0.5 cm in thickness which is abnormal for patient''s age. Anteverted. There is no uterine mass. RIGHT OVARY: The right ovary is not visualized. LEFT OVARY: The left ovary is not visualized. FREE FLUID: None. BLADDER: The urinary bladder appears normal. US/Pelvic (Non ) IMPRESSION: 1. The endometrial stripe measures 0.5 cm in thickness which is abnormal for patient''s age. Findings could be due to endometrial hyperplasia or endometrial cancer. Consider gynecology consultation. 2. The ovaries are not visualized. Correlate for history of oophorectomy. The ovaries were not visualized on the 2 prior examinations. Electronically Signed: Kenneth Faulkner DO at 23:56 EST ,
== END | disposition home or self-care (01) ==
LOC: US 15:23
PROVIDERS: PCP Internal Medicine; Referring Provider Obstetrics & Gynecology; Visit Provider Obstetrics & Gynecology
DX: R93.89 Abnormal findings on diagnostic imaging of other specified body structures (principal)
CPT/HCPCS: 76856

== ENCOUNTER 2024-05-16 11:07 | Emergency (ER) | payer MEDICARE, MEDICAID, SELFPAY ==
--- NOTE | 2024-05-16 | US_ITS ---
PROCEDURE: PELVIC (NON ) REASON FOR EXAM: Vaginal bleeding. LMP: Unknown. TECHNIQUE: Transabdominal pelvic ultrasound COMPARISON: None. FINDINGS: Measurements: Uterus: 10.3 cm x 5.1 cm x 3.3 cm with a volume of 73 mL Endometrial Thickness: 7 mm. It is hyperechoic. There is evidence of a 4.3 cm 4.3 cm x 2.5 cm hypoechoic heterogeneous nodular density at the level of the cervix. Endometrial/cervical polyp should be ruled out. Right Ovary: Nonvisualized. Left Ovary: Nonvisualized. TRANSABDOMINAL: Uterus: Normal size, myometrial echotexture, and contour. Endometrium: Findings suggestive of polyp in the region of the cervix. Right ovary: Nonvisualized. Left ovary: Nonvisualized pelvic No large pelvic mass identified. Transvaginal sonography was attempted unsuccessfully. TRANSVAGINAL: Patient unable to tolerate transvaginal probe. US/Pelvic (Non ) IMPRESSION: Findings suggestive of a 4.3 cm x 4.3 cm x 2.5 cm polyp in the endocervical can al. Reading Location: [place] [id number]
[2024-05-16 11:10] VITALS: BP 189/89; PULSE 80; RESP 16; TEMP 36.9; O2SAT 97; BMI 33.3
--- NOTE | 2024-05-16 11:21 | EDS_ITS ---
HPI <ROEL Santos - Last Filed: 05/16/24 17:36> History of Present Illness Chief Complaint: Complaint Narrative Narrative: 79-year-old female with PMH of HTN, HLD, DM2, hypothyroidism states 4 days ago after urinating she noticed a small amount of pink-tinged blood on the toilet paper. She has no frequency or burning with urination. Over the next few days she had increased bright red blood after urinating in the toilet bowl. She has had to start wearing a thin panty liner and change it twice a day because she would bleed throughout the day. She thinks it was 1 small blood clot this morning. She also has crampy right lower abdominal pain. No fever or chills. No nausea or vomiting. She having normal bowel movements and no rectal bleeding. She had similar symptoms sometime last year and was evaluated by [employer] Dr. Terrell. She reports having an ultrasound but does not know the results. She states the OB was not able to do a pelvic exam in the office and had to do it in the OR. PFSH <ROEL Santos - Last Filed: 05/16/24 17:36> FORMERLY [facility] Medical History Pelvic pain High cholesterol Former smoker Leg cramps Shortness of breath on exertion Type 2 diabetes mellitus Post-menopausal Cough Cutaneous lupus erythematosus Facial cellulitis Perioral dermatitis Bloating Tubular adenoma of colon Flu vaccine need Venous insufficiency of both lower extremities Wears glasses Wears dentures Depression Anxiety Alcohol use Thyroid disease Back pain Gastric reflux History of edema History of echocardiogram Facial dermatitis Colon cancer screening Hypertension GERD (gastroesophageal reflux disease) Depression Anxiety Thyroid disease Kidney stones IBS (irritable bowel syndrome) High cholesterol Gastrointestinal problem Gallstones H/O emotional problems Back problem Arthritis Seasonal allergies Home Medications ?Medication ?Instructions ?Recorded ?Last Taken ?Type atorvastatin 40 mg tablet 40 mg PO QHS #90 tabs Unknown Rx clobetasol 0.05 % topical ointment 1 applic topical BI D PRN SKIN FOLDS 09/23/23 Unknown History nystatin 100,000 unit/gram topical 1 applic topical BI D PRN SKIN FOLDS 09/23/23 Unknown History powder levothyroxine 137 mcg tablet 137 mcg PO QDAY #90 tabs 11/18/23 Unknown Rx levothyroxine 137 mcg tablet 205.5 mcg (1.5 x 137 mcg) PO WE 11/18/23 Unknown Rx #30 tabs trazodone 50 mg tablet 50 mg PO QHS PRN insomnia #9 0 tabs 12/21/23 Unknown Rx bupropion HCl 150 mg 24 hr tablet, 150 mg PO QAM 01/12 Unknown History extended release hydralazine 50 mg tablet 50 mg PO TID 01/13/24 Unknow n History estradiol 0.01% (0.1 mg/gram) 1 appful vaginal QDAY #4 2.5 grams 01/26/24 Unknown Rx vaginal cream medroxyprogesterone 2.5 mg tablet 2.5 mg PO QDAY #90 t abs 01/26/24 Unknown Rx nystatin 100,000 unit/gram topical 1 applic topical BI D #30 grams 01/26/24 Unknown Rx cream amlodipine 5 mg tablet 7.5 mg (1.5 x 5 mg) PO DAILY 3 02/29/24 Unknown Rx months #135 tabs metformin 500 mg tablet,extended 500 mg PO BID #180 ta bs 02/29/24 Unknown Rx release 24 hr fluconazole 100 mg tablet 100 mg PO ONCE #7 tabs 03/25 Unknown Rx (Diflucan) Allergy/AdvReac Type Severity Reaction Status Date / Time No Known Allergies Allergy Verified 05/16/24 11:15
--- NOTE | 2024-05-16 11:21 | EX.ED.DYSGE1 ---
HPI <ROEL Santos - Last Filed: 05/16/24 17:36> History of Present Illness Chief Complaint: Complaint Narrative Narrative: 79-year-old female with PMH of HTN, HLD, DM2, hypothyroidism states 4 days ago after urinating she noticed a small amount of pink-tinged blood on the toilet paper. She has no frequency or burning with urination. Over the next few days she had increased bright red blood after urinating in the toilet bowl. She has had to start wearing a thin panty liner and change it twice a day because she would bleed throughout the day. She thinks it was 1 small blood clot this morning. She also has crampy right lower abdominal pain. No fever or chills. No nausea or vomiting. She having normal bowel movements and no rectal bleeding. She had similar symptoms sometime last year and was evaluated by [employer] Dr. Terrell. She reports having an ultrasound but does not know the results. She states the OB was not able to do a pelvic exam in the office and had to do it in the OR. PFSH <ROEL Santos - Last Filed: 05/16/24 17:36> FOR[facility]LY [facility] Medical History Pelvic pain High cholesterol Former smoker Leg cramps Shortness of breath on exertion Type 2 diabetes mellitus Post-menopausal Cough Cutaneous lupus erythematosus Facial cellulitis Perioral dermatitis Bloating Tubular adenoma of colon Flu vaccine need Venous insufficiency of both lower extremities Wears glasses Wears dentures Depression Anxiety Alcohol use Thyroid disease Back pain Gastric reflux History of edema History of echocardiogram Facial dermatitis Colon cancer screening Hypertension GERD (gastroesophageal reflux disease) Depression Anxiety Thyroid disease Kidney stones IBS (irritable bowel syndrome) High cholesterol Gastrointestinal problem Gallstones H/O emotional problems Back problem Arthritis Seasonal allergies Home Medications ?Medication ?Instructions ?Recorded ?Last Taken ?Type atorvastatin 40 mg tablet 40 mg PO QHS #90 tabs 01/21/23 Unknown Rx clobetasol 0.05 % topical ointment 1 applic topical BID PRN SKIN FOLDS 09/23/23 Unknown History nystatin 100,000 unit/gram topical 1 applic topical BID PRN SKIN FOLDS 09/23/23 Unknown History powder levothyroxine 137 mcg tablet 137 mcg PO QDAY #90 tabs 11/18/23 Unknown Rx levothyroxine 137 mcg tablet 205.5 mcg (1.5 x 137 mcg) PO WE 11/18/23 Unknown Rx #30 tabs trazodone 50 mg tablet 50 mg PO QHS PRN insomnia #90 tabs 12/21/23 Unknown Rx bupropion HCl 150 mg 24 hr tablet, 150 mg PO QAM 01/13/24 Unknown History extended release hydralazine 50 mg tablet 50 mg PO TID 01/13/24 Unknown History estradiol 0.01% (0.1 mg/gram) 1 appful vaginal QDAY #42.5 grams 01/26/24 Unknown Rx vaginal cream medroxyprogesterone 2.5 mg tablet 2.5 mg PO QDAY #90 tabs 01/26/24 Unknown Rx nystatin 100,000 unit/gram topical 1 applic topical BID #30 grams 01/26/24 Unknown Rx cream amlodipine 5 mg tablet 7.5 mg (1.5 x 5 mg) PO DAILY 3 02/29/24 Unknown Rx months #135 tabs metformin 500 mg tablet,extended 500 mg PO BID #180 tabs 02/29/24 Unknown Rx release 24 hr fluconazole 100 mg tablet 100 mg PO ONCE #7 tabs 03/25/24 Unknown Rx (Diflucan) Allergy/AdvReac Type Severity Reaction Status Date / Time No Known Allergies Allergy Verified 05/16/24 11:15 Family History Father Alcoholism Brother Alcoholism Sister Anxiety Arthritis Depression Hypertension Kidney disease hormone problems Thyroid disorder Mother Arthritis Diabetes Hypertension High cholesterol CVA (cerebral vascular accident) Thyroid disorder Surgical History Hx of colonoscopy History of Hx of tonsillectomy History of laparoscopic cholecystectomy Social History Smoking Status: Former smoker alcohol intake: current details: occasionally substance use type: does not use caffeine: Yes what type of physical activity do you participate in: none seatbelt use: always do you feel safe at home: Yes additional social history: ROS <ROEL Santos - Last Filed: 05/16/24 17:36> ROS ED ROS Narrative Constitutional: Negative for fever, chills, malaise. CVS: Negative for chest pain. GI: Positive for abdominal pain. Negative for nausea, vomiting, melena, hematochezia. : Negative for frequency or dysuria. EXAM <ROEL Santos - Last Filed: 05/16/24 17:36> Physical Exam Narrative Exam Narrative: CONST: Patient sitting in no acute distress. EYES: Normal inspection. NECK: Normal inspection. RESP: No respiratory distress, CTAB. CVS: Regular rate and rhythm, no murmur, no gallop. ABD: Soft with mild right sided pelvic tenderness, no guarding or rebound, nondistended. : Normal external genitalia. I inserted the speculum about 1 inch and there is bright red blood in the vaginal vault without active hemorrhage. Patient refused further exam. There is no vaginal discharge or visible lesions. SKIN: Color normal, no rash, warm, dry, intact. EXTREMITIES: Normal appearance, no pedal edema. NEURO: Alert and answering questions appropriately. PSYCH: Normal affect. Const Vital Signs: 05/16/24 11:10 05/16/24 13:02 05/16/24 15:46 Temperature 98.4 F Temperature Source Oral Pulse Rate 80 68 78 Respiratory Rate 16 15 15 Blood Pressure 189/89 H 184/98 H 161/102 H Blood Pressure Mean 122 126 121 Pulse Ox 97 99 97 Oxygen Delivery Method Room Air Room Air Room Air 05/16/24 17:01 Temperature 97.4 F L Temperature Source Pulse Rate 92 Respiratory Rate 18 Blood Pressure 175/81 H Blood Pressure Mean 112 Pulse Ox 96 Oxygen Delivery Method <Dr. Kirk Leung DO - Last Filed: 05/16/24 22:33> Physical Exam Const Vital Signs: 05/16/24 11:10 05/16/24 13:02 05/16/24 15:46 Temperature 98.4 F Temperature Source Oral Pulse Rate 80 68 78 Respiratory Rate 16 15 15 Blood Pressure 189/89 H 184/98 H 161/102 H Blood Pressure Mean 122 126 121 Pulse Ox 97 99 97 Oxygen Delivery Method Room Air Room Air Room Air 05/16/24 17:01 Temperature 97.4 F L Temperature Source Pulse Rate 92 Respiratory Rate 18 Blood Pressure 175/81 H Blood Pressure Mean 112 Pulse Ox 96 Oxygen Delivery Method MDM <ROEL Santos - Last Filed: 05/16/24 17:36> MDM MDM Narrative Medical decision making narrative: Differential includes but not limited to neoplasm, UTI, anemia Consults: [facility] [employer] 79-year-old postmenopausal female presents with vaginal bleeding. Initially she noted pink-tinged after urinating but is now having bleeding that is not associated with urination. She has had this in the past and been evaluated by [employer]. She appears well and nontoxic. BP is 189/89 with otherwise stable vital signs. Her abdomen is soft with mild right sided pelvic tenderness. Patient did not tolerate a full speculum exam and I could only see that there is bright red blood in the vaginal vault without any brisk hemorrhage. She was taken over for transvaginal ultrasound but could not tolerate the probe. She was instructed to drink water so we can obtain a pelvic ultrasound. CBC is within normal limits. Hemoglobin is 13.6. BMP unremarkable. Straight catheterized urine sample is negative. Patient was taken over for a transvaginal and pelvic ultrasound but could not tolerate the transvaginal probe. Pelvic ultrasound shows a polyp in the endocervical canal. She continued to have abdominal pain and needed 2 doses of IV morphine so I ordered a CT scan to further assess. The radiologist called and the CT shows ill-defined thickening of the cervix compatible with cervical cancer. I spoke with [facility] [facility] where she is established coordinate care and the office will reach out to her tomorrow to schedule an appointment this week. Patient is hemodynamically stable with a normal hemoglobin and is comfortable going home with outpatient follow-up. She was discharged in stable condition. Lab Data Attestation: I reviewed the patient's lab results. Labs: Laboratory Results - last 24 hr 05/16/24 05/16/24 11:40 11:52 WBC 10.9 RBC 4.59 Hgb 13.6 Hct 40.7 MCV 88.7 MCH 29.6 MCHC 33.4 RDW Std Deviation 45.6 H RDW Coeff of Destinee 14.2 Plt Count 308 MPV 8.8 Immature Gran % (Auto) 1.300 H Neut % (Auto) 66.2 Lymph % (Auto) 26.9 [place] % (Auto) 4.5 Eos % (Auto) 0.5 Baso % (Auto) 0.6 Absolute Neuts (auto) 7.2 Absolute Lymphs (auto) 2.94 Nucleated RBC % 0 Sodium 137 Potassium 4.2 Chloride 100 Carbon Dioxide 21.9 Anion Gap 15 BUN 15 Creatinine 0.86 Estim Creat Clear Calc 63.18 Est GFR (MDRD) Non-Af 69 BUN/Creatinine Ratio 17.7 Glucose 125 H Calcium 9.4 Urine Color Yellow Urine Clarity Clear Urine pH 6.5 Ur Specific [place] 1.015 Urine Protein 30 H Urine Glucose (UA) Normal Urine Ketones Negative Urine Occult Blood 10 H Urine Nitrite Negative Urine Bilirubin Negative Urine Urobilinogen Normal Ur Leukocyte Esterase Negative Urine RBC 0 SEEN Urine WBC 0-5 SEEN Ur Squamous Epith Cells 0-5 SEEN Ur Transition Epith Cell 0-5 SEEN Urine Bacteria 0 SEEN Urine Mucus 1+ Radiography Diagnostic Testing: Clinical Impression(s) from Imaging Studies Pelvis Ultrasound 05/16/24 00:00 IMPRESSION: Findings suggestive of a 4.3 cm x 4.3 cm x 2.5 cm polyp in the endocervical canal. Reading Location: [facility] Abdomen/Pelvis CT 05/16/24 16:02 IMPRESSION: 1. Ill-defined, lobular contour with marked thickening of the cervix, compatible with cervical neoplasm. Gynecologic consultation with tissue sampling is recommended. 2. No evidence of distant metastatic disease on CT examination. 3. Mild cardiomegaly. Dr. Butt discussed these findings with ROEL Mcnulty, at 4:35 pm on 05/16/24. One or more dose reduction techniques were used (e.g., Automated exposure control, adjustment of the mA and/or kV according to patient size, use of iterative reconstruction technique). Reading Location: [id number] <Dr. Kirk Leung, DO - Last Filed: 05/16/24 22:33> [facility] MDM Narrative Medical decision making narrative: Differential includes but not limited to neoplasm, UTI, anemia Consults: [facility] [employer] 79-year-old postmenopausal female presents with vaginal bleeding. Initially she noted pink-tinged after urinating but is now having bleeding that is not associated with urination. She has had this in the past and been evaluated by [employer]. She appears well and nontoxic. BP is 189/89 with otherwise stable vital signs. Her abdomen is soft with mild right sided pelvic tenderness. Patient did not tolerate a full speculum exam and I could only see that there is bright red blood in the vaginal vault without any brisk hemorrhage. She was taken over for transvaginal ultrasound but could not tolerate the probe. She was instructed to drink water so we can obtain a pelvic ultrasound. CBC is within normal limits. Hemoglobin is 13.6. BMP unremarkable. Straight catheterized urine sample is negative. Patient was taken over for a transvaginal and pelvic ultrasound but could not tolerate the transvaginal probe. Pelvic ultrasound shows a polyp in the endocervical canal. She continued to have abdominal pain and needed 2 doses of IV morphine so I ordered a CT scan to further assess. The radiologist called and the CT shows ill-defined thickening of the cervix compatible with cervical cancer. I spoke with [facility] [employer] [facility] where she is established coordinate care and the office will reach out to her tomorrow to schedule an appointment this week. Patient is hemodynamically stable with a normal hemoglobin and is comfortable going home with outpatient follow-up. She was discharged in stable condition. Supervisory Physician Note Patient was seen and examined with the Advanced Practice Provider. Nursing notes and vital signs have been reviewed. Pertinent old records have been reviewed. I agree with the essential elements of the LOUIE's history, physical exam, assessment, and plan. The differential diagnosis and management options were discussed with the LOUIE. I participated in determining and agree with the management, procedures, final impression and disposition as documented. See changes noted by me. Please see addendum or separate note for any additional details. Impression: 1. Postmenopausal vaginal bleeding 2. Gynecological malignancy, suspected cervical neoplasm 3. Abdominal pain Lab Data Labs: Laboratory Results - last 24 hr 05/16/24 05/16/24 11:40 11:52 WBC 10.9 RBC 4.59 Hgb 13.6 Hct 40.7 MCV 88.7 MCH 29.6 MCHC 33.4 RDW Std Deviation 45.6 H RDW Coeff of Destinee 14.2 Plt Count 308 MPV 8.8 Immature Gran % (Auto) 1.300 H Neut % (Auto) 66.2 Lymph % (Auto) 26.9 [place] % (Auto) 4.5 Eos % (Auto) 0.5 Baso % (Auto) 0.6 Absolute Neuts (auto) 7.2 Absolute Lymphs (auto) 2.94 Nucleated RBC % 0 Sodium 137 Potassium 4.2 Chloride 100 Carbon Dioxide 21.9 Anion Gap 15 BUN 15 Creatinine 0.86 Estim Creat Clear Calc 63.18 Est GFR (MDRD) Non-Af 69 BUN/Creatinine Ratio 17.7 Glucose 125 H Calcium 9.4 Urine Color Yellow Urine Clarity Clear Urine pH 6.5 Ur Specific [place] 1.015 Urine Protein 30 H Urine Glucose (UA) Normal Urine Ketones Negative Urine Occult Blood 10 H Urine Nitrite Negative Urine Bilirubin Negative Urine Urobilinogen Normal Ur Leukocyte Esterase Negative Urine RBC 0 SEEN Urine WBC 0-5 SEEN Ur Squamous Epith Cells 0-5 SEEN Ur Transition Epith Cell 0-5 SEEN Urine Bacteria 0 SEEN Urine Mucus 1+ Radiography Diagnostic Testing: Clinical Impression(s) from Imaging Studies Pelvis Ultrasound 05/16/24 00:00 IMPRESSION: Findings suggestive of a 4.3 cm x 4.3 cm x 2.5 cm polyp in the endocervical canal. Reading Location: [facility]--1 Abdomen/Pelvis CT 05/16/24 16:02 IMPRESSION: 1. Ill-defined, lobular contour with marked thickening of the cervix, compatible with cervical neoplasm. Gynecologic consultation with tissue sampling is recommended. 2. No evidence of distant metastatic disease on CT examination. 3. Mild cardiomegaly. Dr. Butt discussed these findings with ROEL Mcnulty, at 4:35 pm on 05/16/24. One or more dose reduction techniques were used (e.g., Automated exposure control, adjustment of the mA and/or kV according to patient size, use of iterative reconstruction technique). Reading Location: [id number] Discharge Plan Triage Chief Complaint: Complaint ED Midlevel Provider: Danika Brewster ED Provider: Kirk Leung Dx/Rx/DC Orders Clinical Impression: Abnormal vaginal bleeding, Gynecologic malignancy, Abdominal pain Prescriptions: No Action medroxyprogesterone 2.5 mg tablet 2.5 mg PO QDAY Qty: 90 3RF estradiol 0.01 % (0.1 mg/gram) cream 1 appful vaginal QDAY Qty: 42.5 3RF Rx Instructions: apply a fingertip amount before bedtime nystatin 100,000 unit/gram cream 1 applic topical BID Qty: 30 0RF Rx Instructions: apply to affected area on the abdomen twice a day bupropion HCl 150 mg tablet extended release 24 hr 150 mg PO QAM Rx Instructions: pt states she only takes off and on hydralazine 50 mg tablet 50 mg PO TID Rx Instructions: pt states that she is taking this sometimes once to twice daily fluconazole [Diflucan] 100 mg tablet 100 mg PO ONCE Qty: 7 0RF clobetasol 0.05 % ointment 1 applic topical BID PRN (Reason: SKIN FOLDS) nystatin 100,000 unit/gram powder 1 applic topical BID PRN (Reason: SKIN FOLDS) Rx Instructions: to be applied to abdominal skin folds atorvastatin 40 mg tablet 40 mg PO QHS Qty: 90 3RF levothyroxine 137 mcg tablet 205.5 mcg PO WE Qty: 30 0RF Rx Instructions: Take an additional 1/2 tablet once a week. levothyroxine 137 mcg tablet 137 mcg PO QDAY Qty: 90 1RF trazodone 50 mg tablet 50 mg PO QHS PRN (Reason: insomnia) Qty: 90 1RF metformin 500 mg tablet extended release 24 hr 500 mg PO BID Qty: 180 0RF amlodipine 5 mg tablet 7.5 mg PO DAILY 90 Days Qty: 135 1RF Primary Care Provider: Skylar Kaufman Referrals: sherly [Other] Skylar Kaufman MD [Primary Care Provider] - Manda Jimenez DO [Med Staff - Active Staff] - Activity Restrictions/Additional Instructions: Your CT scan shows findings which are likely from cervical or endometrial cancer. I called [facility] [employer] office and they should call you tomorrow to schedule an appointment. If you do not hear from them call their office. Print Language: Slovenian Disposition Disposition: Home, Self Care Discharge Date/Time: 05/16/24 17:02
[2024-05-16 11:50] LABS: Absolute Lymphocyte Count 2.94 X10^3/uL (0.83-4.51); Absolute Neutrophil Count 7.2 X10^3/uL (2.0-7.7); Basophil# 0.07 X10^3/uL; Basophil% 0.6 % (0-1); Eosinophil# 0.06 X10^3/uL; Eosinophils% 0.5 % (0-5); Hematocrit 40.7 % (37-47); Hemoglobin 13.6 g/dL (12.0-15.0); Lymphocyte # 2.94 X10^3/ul (0.83-4.51); Lymphocyte % 26.9 % (19-41); Mean Corp Hgb Conc 33.4 g/dL (32-36); Mean Corpuscular Hgb 29.6 pg (27.0-32.0); Mean Corpuscular Volume 88.7 fL (81-99); Mean Platelet Vol. 8.8 fl (6.2-12.0); Monocyte# 0.49 X10^3/uL; Monocyte% 4.5 % (0-10); NRBC Flagged by Analyzer 0 % (0-5); Neutrophil # 7.21 X10^3/uL (2.7-7.7); Neutrophil % 66.2 % (47-70); Platelet Count 308 K/mm3 (150-450); RBC Distribution Width CV 14.2 % (11.6-14.6); RBC Distribution Width SD 45.6 fl (35.1-43.9); Red Blood Count 4.59 M/mm3 (4.2-5.4); White Blood Count 10.9 K/mm3 (4.4-11.0)
[2024-05-16 11:56] LABS: Bacteria 0 SEEN /hpf (None Seen)
[2024-05-16 12:02] LABS: Color, Urine Yellow (Yellow); Glucose, Dipstick Normal (Normal); Ketone-Dipstick Negative (Negative); Leukocyte Esterase-Dipstick Negative /ul (Negative); Nitrite-Dipstick Negative (Negative); Occult Blood-Urine 10 /ul (Negative); Protein-Dipstick 30 mg/dl (Negative); Specific Gravity, Urine 1.015 (1.002-1.030); Urine Bilirubin Dipstick Negative (Negative); Urine Clarity Clear (Clear); Urine Urobilinogen Normal (Normal); Urine pH 6.5 (5.0 - 8.0)
[2024-05-16 12:22] LABS: Anion Gap 15 (5-15); BUN 15 mg/dL (4-19); BUN/Creat Ratio 17.7 RATIO (10-20); Calcium,Total 9.4 mg/dL (7.6-11.0); Carbon Dioxide 21.9 mmol/L (21.0-32.0); Chloride 100 mmol/L (98-108); Creatinine, Serum 0.86 mg/dL (0.70-1.20); EST Glomerular Filtration Rate 69 (>60); Estimated Creatinine Clearance 63.18 ml/min (50-250); Glucose 125 mg/dL (70-99); Potassium 4.2 mmol/L (3.3-5.1); Sodium Level 137 mmol/L (133-145)
[2024-05-16] MEDS: 0.9% Normal Saline (1000mL) 1,000 ML 999 ML IV (12:50)
[2024-05-16 13:02] VITALS: BP 184/98; PULSE 68; RESP 15; O2SAT 99
[2024-05-16 13:11] LABS: Red Blood Cells-Urine 0 SEEN /hpf (0-5); Transitional Epithelial - Ur 0-5 SEEN /hpf (0-5); White Blood Cells 0-5 SEEN /hpf (0-5)
[2024-05-16] MEDS: Morphine 4 MG/ML Syringe IV ×2 (13:11→16:42)
[2024-05-16] MEDS: Ondansetron 4 MG/2 ML Vial IV (13:11)
[2024-05-16 13:12] LABS: Mucous, Urine 1+ /hpf (<or=2+); Squamous Epithelial Cells - UA 0-5 SEEN /hpf (5-10)
[2024-05-16 15:46] VITALS: BP 161/102; PULSE 78; RESP 15; O2SAT 97
--- NOTE | 2024-05-16 16:02 | CT_ITS ---
PROCEDURE: ABDOMEN/PELVIS W IV CONT ONLY REASON FOR EXAM: 79-year-old female, abdominal pain, urinating bright red blood, started Edgar. TECHNIQUE: Abdomen and pelvis CT with intravenous contrast. No oral contrast. IV CONTRAST: [id number] COMPARISON: Same day pelvic ultrasound, prior pelvic ultrasound 03/31/2024. FINDINGS: Lung bases: Mild cardiomegaly. Mild bibasilar atelectasis. Liver: The liver is normal in size with scattered hepatic cysts. No suspicious hepatic mass. The major portal veins are patent. No biliary ductal dilation. Gallbladder: Prior cholecystectomy. Spleen: Benign splenic cysts. Pancreas: Unremarkable. Adrenals: Unremarkable. Kidneys: Simple bilateral renal cysts. No hydronephrosis or nephrolithiasis. Bladder: The urinary bladder is moderately distended and unremarkable. Reproductive Organs: Marked ill-defined thickening of the cervix with ill- defined lobular contour, measuring at least 3.5 cm in AP diameter. Bowel: The bowel loops are normal in caliber. No ascites or pneumoperitoneum. Normal appendix. Lymph nodes: No suspicious lymph node enlargement, with attention to the regional and periaortic lymph nodes. Vasculature: Moderate calcific plaque of the aortoiliac vessels. Bones: Thoracolumbar spondylosis. No aggressive osseous lesions. CT/Abdomen/Pelvis W IV Cont ONLY IMPRESSION: 1. Ill-defined, lobular contour with marked thickening of the cervix, compatibl e with cervical neoplasm. Gynecologic consultation with tissue sampling is recommended. 2. No evidence of distant metastatic disease on CT examination. 3. Mild cardiomegaly. Dr. Butt discussed these findings with ROEL Mcnulty, at 4:35 pm on 05/16. One or more dose reduction techniques were used (e.g., Automated exposure contr ol, adjustment of the mA and/or kV according to patient size, use of iterative reconstruction technique). Reading Location: [id number]
[2024-05-16 17:01] VITALS: BP 175/81; PULSE 92; RESP 18; TEMP 36.3; O2SAT 96
== END 2024-05-16 17:02 | disposition home or self-care (01) ==
PROVIDERS: Physician Assistant; Emergency Provider Surgery; PCP Internal Medicine; Referring Provider Surgery; Visit Provider Surgery
DX: N95.0 Postmenopausal bleeding (principal); E11.9 Type 2 diabetes mellitus without complications; R93.89 Abnormal findings on diagnostic imaging of other specified body structures; N84.1 Polyp of cervix uteri; R10.2 Pelvic and perineal pain; I10 Essential (primary) hypertension; F32.A Depression, unspecified; F41.9 Anxiety disorder, unspecified; K21.9 Gastro-esophageal reflux disease without esophagitis; E03.9 Hypothyroidism, unspecified; E78.00 Pure hypercholesterolemia, unspecified; Z79.84 Long term (current) use of oral hypoglycemic drugs; Z87.442 Personal history of urinary calculi; Z79.890 Hormone replacement therapy; Z79.899 Other long term (current) drug therapy; Z90.49 Acquired absence of other specified parts of digestive tract; Z87.891 Personal history of nicotine dependence
CPT/HCPCS: 74177; 76856; 80048; 81001; 85025; 96361; 96374; 96375; 96376; 99285; P9612; Q9967; A4216; J2405

== ENCOUNTER → 2024-05-30 | Outpatient (CLI) | payer MEDICARE, MEDICAID, SELFPAY ==
[2024-05-30 16:53] LABS: Absolute Lymphocyte Count 3.85 X10^3/uL (0.83-4.51); Absolute Neutrophil Count 9.3 X10^3/uL (2.0-7.7); Basophil# 0.08 X10^3/uL; Basophil% 0.6 % (0-1); Eosinophil# 0.04 X10^3/uL; Eosinophils% 0.3 % (0-5); Hematocrit 40.2 % (37-47); Hemoglobin 13.7 g/dL (12.0-15.0); Lymphocyte # 3.85 X10^3/ul (0.83-4.51); Lymphocyte % 26.9 % (19-41); Mean Corp Hgb Conc 34.1 g/dL (32-36); Mean Corpuscular Hgb 30.8 pg (27.0-32.0); Mean Corpuscular Volume 90.3 fL (81-99); Mean Platelet Vol. 10.1 fl (6.2-12.0); Monocyte# 0.83 X10^3/uL; Monocyte% 5.8 % (0-10); NRBC Flagged by Analyzer 0 % (0-5); Neutrophil # 9.31 X10^3/uL (2.7-7.7); Neutrophil % 65.1 % (47-70); Platelet Count 376 K/mm3 (150-450); RBC Distribution Width CV 14.6 % (11.6-14.6); RBC Distribution Width SD 47.7 fl (35.1-43.9); Red Blood Count 4.45 M/mm3 (4.2-5.4); White Blood Count 14.3 K/mm3 (4.4-11.0)
[2024-05-30 23:39] LABS: ALB/GLOB Ratio 1.8 RATIO (0.9-2.4); AST(SGOT) 38 U/L (<=31); Alanine Aminotransfer ALT/SGPT 17 U/L (<=34); Albumin, Serum 4.5 g/dL (3.4-4.8); Alkaline Phosphatase 130 U/L (35-104); Anion Gap 18 (5-15); BUN 20 mg/dL (4-19); BUN/Creat Ratio 26.9 RATIO (10-20); Calcium,Total 9.8 mg/dL (7.6-11.0); Chloride 100 mmol/L (98-108); Creatinine, Serum 0.75 mg/dL (0.70-1.20); EST Glomerular Filtration Rate 81 (>60); Globulin 2.5 g/dL (2.2-4.2); Glucose 143 mg/dL (70-99); Potassium 4.1 mmol/L (3.3-5.1); Sodium Level 136 mmol/L (133-145); Total Bilirubin 0.39 mg/dL (0.00-1.30)
== END | disposition home or self-care (01) ==
LOC: BIMLAB 14:48
PROVIDERS: PCP Internal Medicine; Referring Provider Internal Medicine; Visit Provider Internal Medicine
DX: E03.9 Hypothyroidism, unspecified (principal); E11.9 Type 2 diabetes mellitus without complications; N95.0 Postmenopausal bleeding
CPT/HCPCS: 36415; 80053; 84443; 85025

== ENCOUNTER → 2024-06-13 | Outpatient (CLI) | payer MEDICARE, MEDICAID, SELFPAY ==
[2024-06-13 13:10] LABS: Absolute Lymphocyte Count 3.38 X10^3/uL (0.83-4.51); Absolute Neutrophil Count 8.8 X10^3/uL (2.0-7.7); Basophil# 0.09 X10^3/uL; Basophil% 0.7 % (0-1); Eosinophil# 0.07 X10^3/uL; Eosinophils% 0.5 % (0-5); Hematocrit 41.4 % (37-47); Hemoglobin 13.3 g/dL (12.0-15.0); Lymphocyte # 3.38 X10^3/ul (0.83-4.51); Lymphocyte % 25.8 % (19-41); Mean Corp Hgb Conc 32.1 g/dL (32-36); Mean Corpuscular Hgb 29.8 pg (27.0-32.0); Mean Corpuscular Volume 92.6 fL (81-99); Monocyte# 0.64 X10^3/uL; Monocyte% 4.9 % (0-10); NRBC Flagged by Analyzer 0 % (0-5); Neutrophil # 8.76 X10^3/uL (2.7-7.7); Neutrophil % 66.8 % (47-70); Platelet Count 397 K/mm3 (150-450); RBC Distribution Width CV 14.6 % (11.6-14.6); RBC Distribution Width SD 49.6 fl (35.1-43.9); Red Blood Count 4.47 M/mm3 (4.2-5.4); White Blood Count 13.1 K/mm3 (4.4-11.0)
[2024-06-13 13:38] LABS: Anion Gap 15 (5-15); BUN 11 mg/dL (4-19); BUN/Creat Ratio 10.6 RATIO (10-20); Calcium,Total 9.6 mg/dL (7.6-11.0); Carbon Dioxide 23.2 mmol/L (21.0-32.0); Chloride 99 mmol/L (98-108); Creatinine, Serum 1.07 mg/dL (0.70-1.20); EST Glomerular Filtration Rate 53 (>60); Glucose 215 mg/dL (70-99); Potassium 4.4 mmol/L (3.3-5.1); Sodium Level 137 mmol/L (133-145)
== END | disposition home or self-care (01) ==
LOC: BIMLAB 10:28
PROVIDERS: PCP Internal Medicine; Referring Provider Internal Medicine; Visit Provider Internal Medicine
DX: E03.9 Hypothyroidism, unspecified (principal); E11.9 Type 2 diabetes mellitus without complications
CPT/HCPCS: 36415; 80048; 85025

== ENCOUNTER → 2024-09-12 | Outpatient (CLI) | payer MEDICARE, MEDICAID, SELFPAY ==
[2024-09-12 12:26] LABS: Hematocrit 36.5 % (37-47); Hemoglobin 12.1 g/dL (12.0-15.0); Immature Granulocytes Count 0.060 X10^3/uL (0.0-0.0); Mean Corp Hgb Conc 33.2 g/dL (32-36); Mean Corpuscular Volume 88.4 fL (81-99); Mean Platelet Vol. 9.7 fl (6.2-12.0); NRBC Flagged by Analyzer 0 % (0-5); Platelet Count 308 K/mm3 (150-450); RBC Distribution Width CV 13.4 % (11.6-14.6); RBC Distribution Width SD 43.6 fl (35.1-43.9); Red Blood Count 4.13 M/mm3 (4.2-5.4); White Blood Count 8.5 K/mm3 (4.4-11.0)
[2024-09-12 13:18] LABS: AST(SGOT) 37 U/L (<=31); Alanine Aminotransfer ALT/SGPT 19 U/L (<=34); Albumin, Serum 3.6 g/dL (3.4-4.8); Alkaline Phosphatase 89 U/L (35-104); Anion Gap 14 (5-15); BUN 11 mg/dL (4-19); BUN/Creat Ratio 14.4 RATIO (10-20); Calcium,Total 9.3 mg/dL (7.6-11.0); Carbon Dioxide 22.4 mmol/L (21.0-32.0); Chloride 104 mmol/L (98-108); Cholesterol 179 mg/dL (<=200); Globulin 3.1 g/dL (2.2-4.2); Glucose 186 mg/dL (70-99); Low Density Lipoprotein Calc. 90 mg/dL; Potassium 3.8 mmol/L (3.3-5.1); Triglycerides 207 mg/dL; Very Low Density Lipoprotein 41 mg/dL (5-40); cholesterol:hdl ratio screen 3.72
== END | disposition home or self-care (01) ==
LOC: BIMLAB 10:03
PROVIDERS: PCP Internal Medicine; Referring Provider Internal Medicine; Visit Provider Internal Medicine
DX: E03.9 Hypothyroidism, unspecified (principal); E11.9 Type 2 diabetes mellitus without complications
CPT/HCPCS: 36415; 80053; 80061; 84443; 85025

== ENCOUNTER 2025-01-04 14:52 | Emergency (ER) | payer MEDICARE, MEDICAID, SELFPAY ==
[2025-01-04 14:52] VITALS: BP 162/105; PULSE 86; RESP 16; TEMP 36.8; O2SAT 98; BMI 34.9
[2025-01-04 16:22] LABS: Color, Urine Yellow (Yellow); Glucose, Dipstick Normal (Normal); Ketone-Dipstick Negative (Negative); Leukocyte Esterase-Dipstick 500 /ul (Negative); Mucous, Urine 0 SEEN /hpf (<or=2+); Nitrite-Dipstick Negative (Negative); Occult Blood-Urine 10 /ul (Negative); Protein-Dipstick 15 mg/dl (Negative); Specific Gravity, Urine 1.015 (1.002-1.030); Urine Bilirubin Dipstick Negative (Negative)
--- NOTE | 2025-01-04 16:33 | EX.ED.DYSGE1 ---
HPI History of Present Illness Chief Complaint: Hypertension Detail of Chief Complaint: Patient presents from urgent care because of elevated blood pressure. Informant: patient Onset/Context/Timing Onset: - (Unknown) Context: - (Unknown) Timing: - (Unknown) Quality: Patient states her blood pressure was 255/140 Location: Cardiovascular Current Severity: Patient is asymptomatic Maximum Severity: Unknown Worsened by: Noncompliance with diet Relieved by: Not applicable Associated Symptoms Associated Symptoms: None Narrative Narrative: Patient is 79-year-old woman. She has history of kidney stones, thyroid disease, depression anxiety, GERD, hypertension, hypothyroidism, hyperlipidemia and diabetes. Patient went to urgent care. Her blood pressure was elevated. She was sent to the ER. She denies headache. Denies double vision blurred vision loss of vision. Denies ringing or ears. Has trouble with [place] swallowing. She denies chest pain, pressure or tightness. Denies back pain. Denies shortness of breath, dyspnea or dyspnea on exertion. She denies orthopnea. She does have some mild swelling of her legs, which is chronic. She denies abdominal pain. She states she may be urinating less. Prior similar symptoms: No Recent Illness/Hospitalization: No PFSH PFS Medical History Pelvic pain High cholesterol Former smoker Leg cramps Shortness of breath on exertion Type 2 diabetes mellitus Post-menopausal Cough Cutaneous lupus erythematosus Facial cellulitis Perioral dermatitis Bloating Tubular adenoma of colon Flu vaccine need Venous insufficiency of both lower extremities Wears glasses Wears dentures Depression Anxiety Alcohol use Thyroid disease Back pain Gastric reflux History of edema History of echocardiogram Facial dermatitis Colon cancer screening Hypertension GERD (gastroesophageal reflux disease) Depression Anxiety Thyroid disease Kidney stones IBS (irritable bowel syndrome) High cholesterol Gastrointestinal problem Gallstones H/O emotional problems Back problem Arthritis Seasonal allergies Home Medications ?Medication ?Instructions ?Recorded ?Last Taken ?Type atorvastatin 40 mg tablet 40 mg PO QHS #90 tabs 01/21/23 Unknown Rx clobetasol 0.05 % topical ointment 1 applic topical BID PRN SKIN FOLDS 09/23/23 Unknown History levothyroxine 137 mcg tablet 205.5 mcg (1.5 x 137 mcg) PO WE 11/18/23 Unknown Rx #30 tabs bupropion HCl 150 mg 24 hr tablet, 150 mg PO QAM 01/13/24 Unknown History extended release amlodipine 5 mg tablet 7.5 mg (1.5 x 5 mg) PO DAILY 3 02/29/24 Unknown Rx months #135 tabs hydralazine 50 mg tablet 75 mg (1.5 x 50 mg) PO TID 3 05/30/24 Unknown Rx months #405 tabs metformin 750 mg tablet,extended 750 mg PO BID #180 tabs 05/30/24 Unknown Rx release 24 hr levothyroxine 137 mcg tablet 137 mcg PO QDAY #90 tabs 08/02/24 Unknown Rx glimepiride 2 mg tablet 2 mg PO QAM #30 tabs 09/07/24 Unknown Rx buspirone 5 mg tablet 5 mg PO TID #90 tabs 09/13/24 Unknown Rx trazodone 50 mg tablet 50 mg PO QHS PRN insomnia #90 tabs 12/06/24 Unknown Rx hydrochlorothiazide 12.5 mg tablet 12.5 mg PO DAILY #30 tabs 01/04/25 Unknown Rx Allergy/AdvReac Type Severity Reaction Status Date / Time No Known Allergies Allergy Verified 01/04/25 14:54 Family History Father Alcoholism Brother Alcoholism Sister Anxiety Arthritis Depression Hypertension Kidney disease hormone problems Thyroid disorder Mother Arthritis Diabetes Hypertension High cholesterol CVA (cerebral vascular accident) Thyroid disorder Surgical History History of hysterectomy Hx of colonoscopy History of Hx of tonsillectomy History of laparoscopic cholecystectomy Social History Smoking Status: Former smoker alcohol intake: current details: occasionally substance use type: does not use caffeine: Yes what type of physical activity do you participate in: none seatbelt use: always do you feel safe at home: Yes additional social history: ROS ROS ED Constitutional Constitutional ED: Denies chills, fever(s) or subjective Eyes Eyes: Denies blurry vision, change in vision or diplopia ENT ENT ED: Reports sore throat; Denies ear pain or rhinorrhea Cardiovascular Cardiovascular: Denies chest pain, orthopnea, palpitations, paroxysmal nocturnal dyspnea or racing heartbeat Respiratory/Chest Respiratory/Chest: Denies cough, dyspnea, dyspnea on exertion, orthopnea or paroxysmal nocturnal dyspnea Gastrointestinal Gastrointestinal: Denies abdominal pain, nausea or vomiting Genitourinary Genitourinary ED: Denies dysuria, hematuria or urinary frequency Musculoskeletal Musculoskeletal: Denies back pain or neck pain Integumentary Denies rash Neurologic Neurologic: Denies headache(s), paresthesias or weakness Hematologic/Lymphatic Hematologic/Lymphatic: Reports systems reviewed and no addt'l complaints, except as documented EXAM Physical Exam Const Vital Signs: 01/04/25 14:52 01/04/25 15:39 01/04/25 16:52 Temperature 98.2 F Temperature Source Oral Pulse Rate 86 78 Respiratory Rate 16 17 Respiratory Pattern Normal Blood Pressure 162/105 H 189/71 H Blood Pressure Mean 124 110 Pulse Ox 98 98 Oxygen Delivery Method Room Air Room Air 01/04/25 17:57 Temperature Temperature Source Pulse Rate 74 Respiratory Rate 18 Respiratory Pattern Blood Pressure 213/75 H Blood Pressure Mean 121 Pulse Ox 99 Oxygen Delivery Method Room Air Positive well nourished and well developed Constitutional Narrative: . General Appearance ED: well developed; Negative for pallor HEENT Reports moist mucous membranes HEENT Narrative: Ears normal. Nares patent. Uvula midline. No deviation with protrusion. Eyes PERRL and EOMs intact bilaterally Eyes Narrative: There is no nystagmus. General Eye ED: Negative for pale conjunctiva or scleral icterus Chest Wall inspection of chest normal and palpation of chest normal Resp normal respiratory effort and clear to auscultation bilaterally Cardio regular rate, regular rhythm, S1 normal heart sound, S2 normal heart sound and no murmurs GI normal to inspection, nondistended, normoactive bowel sounds, non-tender, non-distended and no masses; Negative for hepatosplenomegaly Back/Spine no CVA tenderness Extremity Negative for normal to inspection General Extremety ED: Yes edema General Extremity: edema Neuro oriented x3, CN's II-XII intact bilaterally and no sensory deficits noted Neuro Narrative: There is no dysmetria. There is no clonus. There is no Babinski. Sensorium / Orientation: alert Motor Exam: strength 5/5 throughout Psych mental status grossly normal Skin no rashes or lesions noted, no wounds and skin turgor normal General Skin Exam: Negative for jaundice or pallor MDM MDM MDM Narrative Medical decision making narrative: Patient with asymptomatic hypertension. Patient's blood pressures is 228/80 Will obtain BMP and UA. BMP to assess BUN and creatinine and UA to assess for proteinuria, hematuria and casts. Patient is symptomatic there is no indication for emergent treatment. Her first blood pressure is 162/105. Her second 1 her systolic was 228. Lab Data Attestation: I reviewed the patient's lab results. Lab results narrative: Urine does not reveal ketones. There is mild proteinuria and hematuria. Specimen is contaminated with 5-10 epithelial cells. Since patient has no urinary symptoms will not treat. Labs: Laboratory Results - last 24 hr 01/04/25 01/04/25 15:50 16:06 Sodium 138 Potassium 4.4 Chloride 102 Carbon Dioxide 23.8 Anion Gap 12 BUN 12 Creatinine 0.84 Estim Creat Clear Calc 66.27 Est GFR (MDRD) Non-Af 72 BUN/Creatinine Ratio 14.6 Glucose 109 H Calcium 9.2 Urine Color Yellow Urine Clarity Cloudy Urine pH 6.0 Ur Specific [place] 1.015 Urine Protein 15 H Urine Glucose (UA) Normal Urine Ketones Negative Urine Occult Blood 10 H Urine Nitrite Negative Urine Bilirubin Negative Urine Urobilinogen Normal Ur Leukocyte Esterase 500 H Urine RBC 0-5 SEEN Urine WBC 25-50 SEEN Ur Squamous Epith Cells 5-10 SEEN Ur Transition Epith Cell 0-5 SEEN Amorphous Sediment 2+ Urine Bacteria 2+ Urine Mucus 0 SEEN Treatment and Re-Evaluation :: When I entered the room to inform patient of her results at 1807 she was asleep. She was informed that her pressure has improved. She was informed that prescribed a thiazide diuretic and recommend not starting the medicine until tomorrow morning since she will have increased urination. She also was informed the importance of compliance with her diet. She apparently is having monzon with every meal and adding salt to her food. Discharge Plan Triage Chief Complaint: Hypertension ED Provider: Vinnie De La Garza Dx/Rx/DC Orders Clinical Impression: Asymptomatic hypertensive urgency, Type 2 diabetes mellitus, High cholesterol, Anxiety and depression, Thyroid disease Instructions: ED Hypertension, Established Prescriptions: New hydrochlorothiazide 12.5 mg tablet 12.5 mg PO DAILY Qty: 30 0RF No Action bupropion HCl 150 mg tablet extended release 24 hr 150 mg PO QAM Rx Instructions: pt states she only takes off and on hydralazine 50 mg tablet 75 mg PO TID 90 Days Qty: 405 1RF metformin 750 mg tablet extended release 24 hr 750 mg PO BID Qty: 180 1RF glimepiride 2 mg tablet 2 mg PO QAM Qty: 30 3RF Rx Instructions: administer with breakfast clobetasol 0.05 % ointment 1 applic topical BID PRN (Reason: SKIN FOLDS) atorvastatin 40 mg tablet 40 mg PO QHS Qty: 90 3RF levothyroxine 137 mcg tablet 205.5 mcg PO WE Qty: 30 0RF Rx Instructions: Take an additional 1/2 tablet once a week. amlodipine 5 mg tablet 7.5 mg PO DAILY 90 Days Qty: 135 1RF levothyroxine 137 mcg tablet 137 mcg PO QDAY Qty: 90 1RF buspirone 5 mg tablet 5 mg PO TID Qty: 90 3RF trazodone 50 mg tablet 50 mg PO QHS PRN (Reason: insomnia) Qty: 90 1RF Primary Care Provider: Skylar Kaufman Referrals: Skylar Kaufman MD [Primary Care Provider, Internal Medicine] - 1-2 Weeks Activity Restrictions/Additional Instructions: Start the hydrochlorothiazide tomorrow morning. Recommend taking it in the morning since this will increase urination. You need to be compliant with your diet. Print Language: German Disposition Disposition: Home, Self Care
[2025-01-04 16:52] VITALS: BP 189/71; PULSE 78; RESP 17; O2SAT 98
[2025-01-04 16:56] LABS: Anion Gap 12 (5-15); BUN 12 mg/dL (4-19); BUN/Creat Ratio 14.6 RATIO (10-20); Calcium,Total 9.2 mg/dL (7.6-11.0); Carbon Dioxide 23.8 mmol/L (21.0-32.0); Chloride 102 mmol/L (98-108); Estimated Creatinine Clearance 66.27 ml/min (50-250); Glucose 109 mg/dL (70-99); Potassium 4.4 mmol/L (3.3-5.1)
[2025-01-04 17:49] LABS: Red Blood Cells-Urine 0-5 SEEN /hpf (0-5)
[2025-01-04 17:50] LABS: Squamous Epithelial Cells - UA 5-10 SEEN /hpf (5-10)
[2025-01-04 17:51] LABS: Transitional Epithelial - Ur 0-5 SEEN /hpf (0-5)
[2025-01-04 17:57] VITALS: BP 213/75; PULSE 74; RESP 18; O2SAT 99
[2025-01-04 18:16] VITALS: BP 202/68; PULSE 60; RESP 16; TEMP 36.6; O2SAT 98
== END 2025-01-04 18:17 | disposition home or self-care (01) ==
PROVIDERS: Emergency Provider Emergency Medicine; PCP Internal Medicine; Visit Provider Emergency Medicine
DX: I10 Essential (primary) hypertension (principal); E11.9 Type 2 diabetes mellitus without complications; I16.0 Hypertensive urgency; Z90.710 Acquired absence of both cervix and uterus; F32.A Depression, unspecified; E07.9 Disorder of thyroid, unspecified; E78.00 Pure hypercholesterolemia, unspecified; Z87.891 Personal history of nicotine dependence; F41.9 Anxiety disorder, unspecified; Z79.899 Other long term (current) drug therapy; Z90.49 Acquired absence of other specified parts of digestive tract
CPT/HCPCS: 80048; 81001; 99284; A4216

== ENCOUNTER → 2025-01-13 | Outpatient (CLI) | payer MEDICARE, MEDICAID, SELFPAY ==
[2025-01-13 12:35] LABS: Mucous, Urine 0 SEEN /hpf (<or=2+); Red Blood Cells-Urine 0 SEEN /hpf (0-5)
[2025-01-13 12:38] LABS: Color, Urine Yellow (Yellow); Glucose, Dipstick Normal (Normal); Ketone-Dipstick Negative (Negative); Leukocyte Esterase-Dipstick 500 /ul (Negative); Nitrite-Dipstick Negative (Negative); Occult Blood-Urine 10 /ul (Negative); Protein-Dipstick 30 mg/dl (Negative); Specific Gravity, Urine 1.020 (1.002-1.030); Urine Bilirubin Dipstick Negative (Negative)
[2025-01-13 13:02] LABS: Squamous Epithelial Cells - UA 0-5 SEEN /hpf (5-10)
== END | disposition home or self-care (01) ==
LOC: LABSPEC 12:21
PROVIDERS: PCP Internal Medicine; Referring Provider Nurse Practitioner Family; Visit Provider Nurse Practitioner Family
DX: N39.0 Urinary tract infection, site not specified (principal)
CPT/HCPCS: 81001; 87086; 87088